=== PATIENT | female | born 1995 | race Caucasian/White ===

== ENCOUNTER 2016-04-13 02:23 | Inpatient (IN) | payer MEDICAID ==
[~2016-04-13] VITALS: Ht 172.7 cm; Wt 85.0 kg
[2016-04-13] VITALS (50 sets, daily range): BP systolic 71–145; BP diastolic 25–118; PULSE 72–132; RESP 11–24; TEMP 91.6; Ht 172.7 cm; Wt 85.0 kg
[2016-04-13] MEDS ORDERED: PROPOFOL 100 ML ONE (02:31)
[2016-04-13] MEDS ORDERED: PROPOFOL 100 ML IV STA (02:46)
[2016-04-13] MEDS ORDERED: VECURONIUM 100 MG in DEXTROSE 5% 100 ML IV ONE (02:46)
[2016-04-13] MEDS ORDERED: SODIUM CHLORIDE 0.9% 500 ML BAG IV* STA (02:46)
[2016-04-13] MEDS ORDERED: SUCCINYLCHOLINE CHLORIDE 100 MG/5 ML SYG IV ONE (03:00)
[2016-04-13 03:02] LABS: AADO2 Arterial 277.6 mmHg (7.0-24.0); Allen Test ACCEPTAB; Arterial Base Excess -18.8 mmol/L (-3.0-3); Arterial COHb 1.7 % (0.0-3.0); Arterial Fraction of Oxyhgb 97.6 % (93.0-99.0); Arterial HCO3 9.9 mmol/L (22.0-26.0); Arterial MetHb 0.4 % (0.0-1.5); Arterial Total Hemglobin 13.5 g/dl (12.0-18.0); MODE VENT - A/C
[2016-04-13 03:34] LABS: HEMATOCRIT 39.9 % (37.0-47.0); HEMOGLOBIN 13.1 g/dl (12.0-16.0); MEAN CORPUSCULAR HEMOGLOBIN 29.4 pg (29.0-33.0); MEAN CORPUSCULAR VOLUME 89.2 fl (82.0-101.0); MEAN PLATELET VOLUME 10.1 fl (7.4-10.4); PLATELET COUNT 190 10^3/UL (140-440); RED BLOOD COUNT 4.47 10^6/ul (4.20-5.40); RED CELL DISTRIBUTION WIDTH 13.4 % (11.5-14.5); UNCORRECTED WBC 7.9 10^3/ul (4.8-10.8); WHITE BLOOD COUNT 7.9 10^3/ul (4.8-10.8)
[2016-04-13 03:38] LABS: INR 1.21; PROTIME 15.4 Sec (12.2-14.2); PT RATIO 1.2
--- NOTE | 2016-04-13 03:38 | RADRPT ---
PROCEDURE: CHEST - 1 VIEW CLINICAL INDICATION: 20-year-old female for line placement and hypothermia. TECHNIQUE: A single frontal upright view of the chest was performed. The images were reviewed on a PACS workstation. COMPARISON: None. FINDINGS: There is a left subclavian central line with the tip in the distal superior vena cava region. There is an endotracheal tube identified with the tip in the right mainstem bronchus approximately 1.8 cm below the bro. The cardiomediastinal silhouette has a normal appearance. There is diffuse patch y right upper lobe infiltrate. The pulmonary vascularity is within normal limits. There is no eviden ce for pneumothorax or pneumomediastinum. The osseous structures are intact. IMPRESSION: 1. Endotracheal tube with the tip in the right mainstem bronchus approximately 1.8 cm below the car flora. 2. Left subclavian central line with the tip in the distal superior vena cava. 3. Diffuse right upper lobe infiltrate. CRITICAL RESULTS: A call report was made to [facility] ER Dr. Lopez on April 13, 2016 at 03:35 a. m. .Ricky Pressley MD, MD Date Time Electronically viewed and signed by .Ricky Pressley MD, on 04/13/2016 03:38 .M/
[2016-04-13 03:39] LABS: CHLORIDE 96 mmol/L (97-110); SODIUM 136 mmol/L (135-144)
[2016-04-13 03:40] LABS: CONDITION 1; LH ANALYZER COMMENTS 1; PARTIAL THROMBOPLASTIN TIME 35.7 Sec (25.0-35.0); SUSPECT 1
[2016-04-13 03:41] LABS: ANION GAP 26 (8-16); CARBON DIOXIDE 17 mmol/L (21-31); CREATININE 0.83 mg/dl (0.44-1.00)
[2016-04-13 03:42] LABS: ALANINE AMINOTRANSFERASE 113 IU/L (13-69); ALBUMIN/GLOBULIN RATIO 1.33; ALKALINE PHOSPHATASE 66 IU/L (42-121); ASPARTATE AMINO TRANSFERASE 111 IU/L (15-46); BILIRUBIN,INDIRECT 0.5 mg/dl (0-1.1); BILIRUBIN,TOTAL 0.5 mg/dl (0.2-1.3); BLOOD UREA NITROGEN 3 mg/dl (7-20); CALCIUM 8.5 mg/dl (8.4-10.2); PHOSPHORUS 7.5 mg/dl (2.5-4.9)
[2016-04-13 03:43] LABS: MAGNESIUM 2.5 mg/dl (1.7-2.5)
[2016-04-13 03:44] LABS: POTASSIUM 2.6 mmol/L (3.5-5.1)
[2016-04-13 03:45] LABS: ACETAMINOPHEN < 10.0 ug/ml (10.0-30.0); SALICYLATE < 1.0 mg/dl (5.0-30.0)
[2016-04-13 03:46] LABS: GLUCOSE 430 mg/dl (70-220)
[2016-04-13 03:47] LABS: ADD UMIC YES; URINE BILIRUBIN (Dip) NEGATIVE (NEGATIVE); URINE BLOOD (Dip) NEGATIVE (NEGATIVE); URINE COLOR LT. YELLOW (YELLOW); URINE GLUCOSE (Dip) NEGATIVE (NEGATIVE); URINE KETONES (Dip) NEGATIVE (NEGATIVE); URINE LEUKOCYTE ESTERASE (Dip) 1+ (NEGATIVE); URINE NITRITE (Dip) NEGATIVE (NEGATIVE); URINE TOTAL PROTEIN (Dip) NEGATIVE (NEGATIVE); URINE UROBILINOGEN (Dip) 0.2 E.U./dL (0.1-1.0)
[2016-04-13 03:58] LABS: BACTERIA,URINE FEW; SQUAMOUS EPITHELIAL CELL,UR FEW; URINE RBCS 0-2 /HPF (0)
[2016-04-13 04:02] LABS: BENZODIAZEPINES Negative (NEGATIVE)
[2016-04-13 04:04] LABS: CANNABINOIDS Negative (NEGATIVE)
--- NOTE | 2016-04-13 04:07 | RADRPT ---
PROCEDURE: CT BRAIN WITHOUT CONTRAST CLINICAL INDICATION: 20-year-old female with altered level of consciousness. TECHNIQUE: The study was performed utilizing a GE [employer] VCT 64-slice CT scanner. Direct axia l sections were obtained from the foramen magnum to the vertex without the use of intravenous contra st material. Sagittal and coronal reformations were obtained. Automated exposure control and iterat ivonne reconstruction techniques were utilized for this examination. The images were viewed on a PACS workstation. CTD/vol = 45.0 mGy; Total Exam DLP = 720.2 mGy-cm. COMPARISON: None. FINDINGS: The ventricles have a normal size, shape and position. There is no evidence for mass effect or midl ine shift. There are no intracranial areas of abnormal attenuation. There is no evidence for acute intra or extra-axial blood. The bony calvarium is intact. The partially visualized paranasal sinuse s and mastoid air cells are without significant abnormal soft tissue. . There is fluid within the n asopharynx. IMPRESSION: 1. The intracranial contents are unremarkable on this noncontrast CT scan of the brain. 2. Fluid within the nasopharynx. .Ricky Pressley MD, Date Time Electronically viewed and signed by .Ricky Pressley MD, on 04/13/2016 04:07 .Katy
[2016-04-13 04:12] LABS: BARBITURATES Negative (NEGATIVE); COCAINE Negative (NEGATIVE); OPIATES Negative (NEGATIVE)
[2016-04-13 04:12] LABS: TROPONIN-I < 0.012 ng/ml (0.00-0.12)
[2016-04-13 04:19] LABS: LYMPHOCYTES # 6.6 10^3/ul (0.8-2.9); MONOCYTE # 0.4 10^3/ul (0.3-0.9); NEUTROPHIL # 0.9 10^3/ul (1.6-7.5); PLATELET ESTIMATE PLT APPEAR ADEQUATE
[2016-04-13] MEDS ORDERED: POTASSIUM CHLORIDE 250 ML IVPB ONE (05:00)
--- NOTE | 2016-04-13 05:38 | ERA ---
ER Documentation Chief Complaint Date/Time DATE: 04/13/16 TIME: 05:32 Chief Complaint BIBA, Cardiac Arrest from a bar HPI This is a 20-year-old female brought in by EMS for cardiac arrest from a local bar. Currently she is down and bystanders started CPR. EMS got there and saw the patient was in arrest. They started compressions. Patient was shocked twice in the field for V. fib. Brought here with a pulse. Upon arrival patient was immediately intubated. Central line placed. Hypothermic protocol initiated. ROS All systems reviewed and are negative except as per history of present illness. Allergies Allergies: Coded Allergies: No Known Drug Allergy (Verified Allergy, Unknown, 04/10/09) PMhx/Soc Hx Alcohol Use: Yes Hx Tobacco Use: Yes Smoking Status: Current every day smoker Physical Exam Vitals Vital Signs Date Time Temp Pulse Resp B/P Pulse Ox O2 Delivery O2 Flow Rate FiO2 04/13/16 04:10 108 16 100 50 04/13/16 03:10 50 04/13/16 02:35 127 16 100 100 04/13/16 02:33 96.0 163 23 142/116 91 04/13/16 02:25 96.0 165 139/93 91 Ambu Bag 15.0 Physical Exam Const: [] Head: Atraumatic Eyes: Normal Conjunctiva ENT: Normal External Ears, Nose and Mouth. Neck: Full range of motion..~ No meningismus. Resp: Clear to auscultation bilaterally Cardio: Regular rate and rhythm, no murmurs Abd: Soft, non tender, non distended. Normal bowel sounds Skin: No petechiae or rashes Back: No midline or flank tenderness Ext: No cyanosis, or edema Neur: obtunded Psych: Normal Mood and Affect Result Diagram: 04/13/16 0230 04/13/16 0230 Results 24 hrs Laboratory Tests Test 04/13/16 02:30 04/13/16 02:34 04/13/16 02:46 04/13/16 03:26 Acetaminophen Level < 10.0ug/ml Activated Partial Thromboplast Time 35.7Sec Alanine Aminotransferase (ALT/SGPT) 113IU/L Albumin 4.0g/dl Albumin/Globulin Ratio 1.33 Alkaline Phosphatase 66IU/L Anion Gap 26 Aspartate Amino Transf (AST/SGOT) 111IU/L Blood Urea Nitrogen 3mg/dl Calcium Level 8.5mg/dl Carbon Dioxide Level 17mmol/L Chloride Level 96mmol/L Creatinine 0.83mg/dl Direct Bilirubin 0.00mg/dl Ethyl Alcohol Level 63.0mg/dl Globulin 3.00g/dl Glucose Level 430mg/dl Hematocrit 39.9% Hemoglobin 13.1g/dl INR International Normalized Ratio 1.21 Indirect Bilirubin 0.5mg/dl Lactic Acid Level 11.4mmol/L Lymphocytes # 6.610^3/ul Lymphocytes % 84.0% Magnesium Level 2.5mg/dl Mean Corpuscular Hemoglobin 29.4pg Mean Corpuscular Hemoglobin Concent 33.0g/dl Mean Corpuscular Volume 89.2fl Mean Platelet Volume 10.1fl Monocytes # 0.410^3/ul Monocytes % 5.0% Neutrophils # 0.910^3/ul Neutrophils % 11.0% Phosphorus Level 7.5mg/dl Platelet Count 74547^3/UL Platelet Estimate PLT APPEAR ADEQUATE Potassium Level 2.6mmol/L Prothrombin Time 15.4Sec Prothrombin Time Ratio 1.2 Red Blood Count 4.4710^6/ul Red Cell Distribution Width 13.4% Salicylates Level < 1.0mg/dl Sodium Level 136mmol/L Total Bilirubin 0.5mg/dl Total Protein 7.0g/dl Troponin I < 0.012ng/ml White Blood Count 7.910^3/ul Urine Amphetamines Screen POSITIVE Urine Bacteria FEW Urine Barbiturates Negative Urine Benzodiazepines Screen Negative Urine Bilirubin NEGATIVE Urine Cannabinoids Negative Urine Clarity CLEAR Urine Cocaine Screen Negative Urine Color LT. YELLOW Urine Glucose NEGATIVE% Urine Hemoglobin NEGATIVE Urine Ketones NEGATIVE Urine Leukocyte Esterase 1+ Urine Microscopic RBC 0-2/HPF Urine Microscopic WBC 2-5/HPF Urine Nitrite NEGATIVE Urine Opiates Screen Negative Urine Specific [place] <=1.005 Urine Squamous Epithelial Cells FEW Urine Total Protein NEGATIVE Urine Urobilinogen 0.2 E.U./dL Urine pH 5.5 Arterial Blood HCO3 9.9mmol/L Arterial Blood Base Excess -18.8mmol/L Arterial Blood Oxygen Saturation 99.7mmHG Colton Test ACCEPTAB Arterial Blood Gas Puncture Site Right Radial Arterial Blood Carboxyhemoglobin 1.7% Arterial Blood Date Drawn 04/13/2016 2:49:57 AM Arterial Blood Methemoglobin 0.4% Arterial Blood pCO2 (Temp correct) 33.2mmhg Arterial Blood pH (Temp corrected) 7.093 Arterial Blood pO2 (Temp corrected) 402.2mmHG Blood Gas A-a O2 Differential 277.6mmHg Blood Gas Actual Respiration Rate 16 Blood Gas Critical Value Read Back Marlena LIRIANO MD Blood Gas Low PEEP Setting 5.0cmH2O Blood Gas Modality VENT - A/C Blood Gas Notified Time 04/13/2016 3:01:45 AM Blood Gas Notified Whom MG Blood Gas Respiration Rate 16.0 Blood Gas Specimen Source Blood arterial Blood Gas Temperature 37.0C Blood Gas Tidal Volume 550.0mL FiO2 100.0% Oxyhemoglobin Percent 97.6% Total Hemoglobin 13.5g/dl Bedside Glucose 180mg/dL Current Medications Medications (Trade) Dose Ordered Sig/Figueroa Route PRN Reason Start Time Stop Time Status Last Admin Dose Admin Sodium Chloride 500 ml 500 ml ONCE STAT IV* 04/13/16 02:46 04/13/16 02:51 DC 04/13/16 03:19 Propofol 100 ml @ 2.7 mls/hr ONCE STAT IV 04/13/16 02:46 04/14/16 15:48 04/13/16 02:56 Vecuronium [place]/Dextrose (Norcuron/D5W) 100 ml @ 5.4 mls/hr [id number] ONCE IV 04/13/16 02:46 04/13/16 21:17 04/13/16 03:18 Succinylcholine Chloride 100 mg 100 mg ONCE ONCE IV 04/13/16 03:00 04/13/16 03:01 DC Potassium Chloride (KCl 40 MEQ/250 ML NS) 250 ml @ 62.5 mls/hr ONCE ONCE IVPB 04/13/16 05:00 04/13/16 08:59 UNV Procedures/MDM Chest X-ray 1V Interpreted by me: Soft Tissue: No acute abnormalities Bones: No acute abnormalities Mediastinum/Cardiac Silhouette/Lungs: ET tube and central line in good position EKG: Rate/Rhythm: Sinus tachycardia 118 QRS, ST, T-waves: [No changes consistent w/ acute ischemia] Impression: [No evidence of ischemia or arrhythmia] CT of the brain is negative Medical decision making: This is an unfortunate 20 female suffered a cardiac arrest. She has been initiated on hypothermia protocol. She is on amiodarone. At this point is clinically stable. She will be admitted to intensive care unit to hospitalist. Family is at the bedside and prognosis is guarded until further notice Critical Care: Time: 65 minutes Treatments/Evaluations: Close monitoring and treatment of unstable vital signs, cardiorespiratory, and neurologic status, while maintaining tight balance of fluid, respiratory, and cardiac interventions. Departure Diagnosis: Primary Impression: Cardiac arrest Condition: Critical MAXWELL LIRIANO Apr 13, 2016 05:45
[2016-04-13] MEDS ORDERED: AMIODARONE 900 MG in DEXTROSE 5% 482 ML IV SCH (06:00)
[2016-04-13] MEDS ORDERED: AMIODARONE 150MG/D5W BOLUS 100 ML IV ONE (06:00)
[2016-04-13] MEDS ORDERED: ACETAMINOPHEN 650MG/20.3ML CUP PO PRN (06:30)
[2016-04-13] MEDS ORDERED: ONDANSETRON 4 MG INJ IV PRN (06:30)
[2016-04-13] MEDS ORDERED: INSULIN REGULAR, HUMAN 100 UNIT in SOD CHLORIDE 0.9% 99 ML IV SCH ×2 (06:30)
[2016-04-13] MEDS ORDERED: DEXTROSE 50% 50 ML SYRINGE IV PRN (06:30)
[2016-04-13] MEDS ORDERED: MEPERIDINE 25 MG INJ IV PRN ×2 (06:30)
[2016-04-13] MEDS ORDERED: ACETAMINOPHEN 650 MG SUPP PR PRN ×2 (06:30)
[2016-04-13] MEDS ORDERED: VANCOMYCIN IV PER PHARMACY XX SCH (06:30)
[2016-04-13] MEDS ORDERED: IPRATROPIUM (HFA) 12.9 GM INHALER INH PRN (06:30)
[2016-04-13] MEDS ORDERED: ALBUTEROL HFA 8 GM INHALER INH PRN (06:30)
[2016-04-13] MEDS: ACCUCHECK XX SCH ×16 (07:03→22:38)
[2016-04-13 07:27] LABS: AADO2 Arterial 258.9 mmHg (7.0-24.0); Allen Test ACCEPTAB; Arterial COHb 0.3 % (0.0-3.0); Arterial Fraction of Oxyhgb 96.2 % (93.0-99.0); Arterial HCO3 20.2 mmol/L (22.0-26.0); Arterial MetHb 0.1 % (0.0-1.5); Arterial Total Hemglobin 14.5 g/dl (12.0-18.0); MODE VENT - AC
--- NOTE | 2016-04-13 08:19 | HP ---
DATE OF ADMISSION: 04/13/2016 TIME SEEN: 5:30 a.m. CHIEF COMPLAINT: Cardiac arrest. HISTORY OF PRESENT ILLNESS: The patient is a 20-year-old female with unknown past medical history w fabrizio was brought in by EMS from a local bar for cardiac arrest. The patient was found down and 911 wa s called. When EMS arrived, she had no pulse. Her rhythm was ventricular fibrillation for which sh rufino was shocked, and after her pulse was restored, she was brought to the ER while being bagged. The patient was immediately intubated in the ER. She had an irregular heart rate when she initially cam e documented to be as high as 165. Urine toxicology screen was positive for amphetamine. As jazzy manzano, the patient is currently intubated and has already been started on hypothermia protocol, and tremaine joy is awaiting admission to the ICU. Laboratory values were notable for a potassium of 2.6, initial glucose of 430, and lactic acid 11.4, AST 111, ALT 113. A head CT was unremarkable for any intracra nial abnormalities, and a chest x-ray shows diffuse patchy right upper lobe infiltrate. REVIEW OF SYSTEMS: Unable to assess. PAST MEDICAL HISTORY: Unknown. PAST SURGICAL HISTORY: Unknown. SOCIAL HISTORY: Likely methamphetamine user. ALLERGIES: NO KNOWN DRUG ALLERGIES. HOME MEDICATIONS: None. PHYSICAL EXAMINATION: VITAL SIGNS: Blood pressure 113/84, heart rate 99 and irregular, respiratory rate 16, temperature 9 1.6, oxygen saturation 100% on 50% FIO2. GENERAL: The patient intubated. Currently not responsive. HEENT: No obvious head deformity. Pupils very minimally reactive to light. CARDIOVASCULAR: Irregularly irregular. LUNGS: Good air movement. There are slight decreased breath sounds on the right side anteriorly. ABDOMEN: Soft, positive bowel sounds, nondistended. EXTREMITIES: No edema. NEUROLOGIC: The patient's pupils are minimally reactive to light, not responding to painful stimuli , and her gag reflex . LABORATORY: Pertinent positives as mentioned in the HPI. IMAGING: Chest x-ray and a brain CT as mentioned in the HPI. IMPRESSION: 1. Status post ventricular fibrillation, cardiac arrest, most likely secondary to methamphetamine o verdose. 2. Ventilator-dependent respiratory failure, secondary to above. 3. Severe lactic acidosis. 4. Hypokalemia. 5. Hyperglycemia. 6. Elevated transaminases. PLAN: Admit to ICU. Will continue ventilator support. Continue hypothermia protocol. She will be placed on antibiotic. Will place a pulmonary and cardiology consult. We will trend her lactic aci d as well as troponin. We will obtain a 2-D echo. Correct electrolytes as needed. A neurology con sult and add additional imaging as needed. For her hyperglycemia, I will start her on an insulin drip for now. Further workup and management per clinical course. Total critical time spent is about 40 minutes. Dictated By: MAXWELL MAYES/HARINDER Conf#: [id number] DID#: [id number]
[2016-04-13] MEDS: SOD CHLORIDE 0.9% 1,000 ML IV SCH ×3 (08:46→19:54)
[2016-04-13] MEDS ORDERED: CEFEPIME 1GM/50 ML (PMX) 50 ML IVPB SCH (09:00)
[2016-04-13 09:17] LABS: HEMATOCRIT 40.2 % (37.0-47.0); HEMOGLOBIN 13.6 g/dl (12.0-16.0); MEAN CORPUSCULAR HEMOGLOBIN 29.6 pg (29.0-33.0); MEAN CORPUSCULAR HGB CONC 33.8 g/dl (32.0-37.0); MEAN CORPUSCULAR VOLUME 87.4 fl (82.0-101.0); MEAN PLATELET VOLUME 9.2 fl (7.4-10.4); PLATELET COUNT 300 10^3/UL (140-440); RED CELL DISTRIBUTION WIDTH 13.4 % (11.5-14.5); UNCORRECTED WBC 18.8 10^3/ul (4.8-10.8); WHITE BLOOD COUNT 18.8 10^3/ul (4.8-10.8)
[2016-04-13 09:20] LABS: CONDITION 1; LH ANALYZER COMMENTS 1; SUSPECT 1
[2016-04-13] MEDS: HEPARIN 5,000 UNIT/0.5 ML SYG SC SCH ×2 (09:21→20:52)
[2016-04-13 09:27] LABS: ALBUMIN 3.6 g/dl (3.3-4.9); INR 1.17; PT RATIO 1.2
[2016-04-13 09:28] LABS: PARTIAL THROMBOPLASTIN TIME 29.7 Sec (25.0-35.0)
[2016-04-13 09:29] LABS: CREATININE 0.51 mg/dl (0.44-1.00)
[2016-04-13 09:30] LABS: ALBUMIN/GLOBULIN RATIO 1.2; BILIRUBIN,INDIRECT 0.5 mg/dl (0-1.1); BILIRUBIN,TOTAL 0.5 mg/dl (0.2-1.3); CALCIUM 7.5 mg/dl (8.4-10.2); TOTAL PROTEIN 6.6 g/dl (6.1-8.1)
[2016-04-13] MEDS ORDERED: VANCOMYCIN 2 GM in SOD CHLORIDE 0.9% 500 ML IVPB SCH (09:30)
[2016-04-13 10:02] LABS: TROPONIN-I 0.952 ng/ml (0.00-0.12)
[2016-04-13 10:57] LABS: BASOPHIL # 0.2 10^3/ul (0.0-0.1); LYMPHOCYTES # 0.9 10^3/ul (0.8-2.9); MONOCYTE # 0.9 10^3/ul (0.3-0.9); NEUTROPHIL # 13.7 10^3/ul (1.6-7.5)
--- NOTE | 2016-04-13 12:12 | CONS ---
DATE OF ADMISSION: 04/13/2016 DATE OF CONSULTATION: 04/13/2016 TYPE OF CONSULTATION: Pulmonary. REASON FOR CONSULTATION: Ventilator management. Thank you, Dr. Calle, for this consultation. HISTORY OF PRESENT ILLNESS: This is a 20-year-old lady with significant past medical history, found down at a local bar unresponsive. Upon arrival of EMS, the patient was pulseless and in ventricula r fibrillation. She required defibrillation and was brought to the emergency room and subsequently emergently intubated, placed on mechanical ventilation and hypothermia protocol. Initial urine toxi cology was positive for amphetamines. The patient remains intubated and sedated, paralyzed at [facility]. Few further details are available. PAST MEDICAL HISTORY: As above. MEDICATIONS: Per chart. ALLERGIES: None known. SOCIAL HISTORY: Nonsmoker, no alcohol, history of drug use unknown. Currently positive for methamp hetamines. PHYSICAL EXAMINATION: GENERAL: Well-nourished, well-developed lady, intubated on mechanical ventilation, appears comforta ble at rest, no acute distress. VITAL SIGNS: Currently afebrile, temperature is 91, pulse is 117, blood pressure 124/70, O2 saturat ion 96%, FIO2 of 50%. NECK: Supple. No JVD or lymphadenopathy. CARDIAC: S1, S2, no added sounds or murmurs. CHEST: Diminished air entry bilaterally. ABDOMEN: Soft, nontender. No guarding or rebound. EXTREMITIES: No cyanosis, clubbing, edema. NEUROLOGIC: Unable to assess. LABORATORY DATA: White count 18.8, hemoglobin 13.6, platelets of 300. BUN 7, creatinine 0.51. Tro ponin elevated. ABG: pH 7.43, pCO2 of 29, pO2 of 68. INR was 1.17. DIAGNOSTIC DATA: Chest x-ray was reviewed, shows infiltrate right upper lobe. CT of the brain was unremarkable. IMPRESSION AND PLAN: 1. Cardiopulmonary arrest. 2. Ventricular fibrillation. 3. Positive methamphetamines. 4. Probable aspiration pneumonia. 5. 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 The patient will require: 1. Continued mechanical ventilation. 2. Broad-spectrum antibiotics. 3. Cardiology evaluation. 4. Glycemic management. 5. DVT and GI prophylaxis. Dictated By: SHELLEY DAI/HARINDER Conf#: [id number] [facility]#: [id number]
--- NOTE | 2016-04-13 12:44 | CONS ---
Date/Time of Note Date/Time of Note DATE: 04/13/16 TIME: 12:39 Assessment/Plan Assessment/Plan Additional Assessment/Plan Cardiac arrest Ventricular fibrillation Methamphetamine use Elevated troponins -Patient currently on hypothermia protocol and is sedated and intubated. Would continue amiodarone. Maintain potassium above 4.0 and magnesium above 2.0. Troponins mildly elevated, likely secondary to cardiac arrest and treatment. Would obtain serial enzymes and total trending down, check echocardiogram. Consultation Date/Type/Reason Admit Date/Time Apr 13, 2016 at 06:25 Type of Consultation: cv Reason for Consultation Cardiac arrest Hx of Present Illness This is a 20-year-old female with no known significant past medical history who was found unresponsive at a bar. CPR was initiated, paramedics arrived, patient in ventricular fibrillation. ACLS protocol with epinephrine and defibrillation and patient had return of spontaneous circulation. Patient brought to the emergency room, started on amiodarone and brought to the ICU. Currently sedated and undergoing hypothermia protocol. As per the mother at bedside, there has been no past medical history. She has been using drugs over the past year. She has a 7-year-old daughter. Unable to be performed at the current time given patient sedated and intubated Past Medical History Medical History: no pertinent history Past Surgical History Past Surgical Hx: no surgical history Family History Significant Family History: no pertinent family hx Social History Alcohol Use: other (yes) Smoking Status: Current every day smoker Drug Use: other (amphetamines) Exam/Review of Systems Vital Signs Vitals Vital Signs Date Time Temp Pulse Resp B/P Pulse Ox O2 Delivery O2 Flow Rate FiO2 04/13/16 12:00 91.4 118/86 100 Mechanical Ventilator 04/13/16 11:30 121 16 04/13/16 08:00 50 04/13/16 02:25 15.0 Exam Sedated and intubated Head: normocephalic ENMT: intubated Respiratory: other (course breath sounds bilaterally, no wheezing) Cardiovascular: other (S1-S2 heard), regular rate and rhythm Gastrointestinal: bowel sounds, other (no distention), soft Extremities: other (no edema) Results Result Diagram: 04/13/16 0846 04/13/16 0846 Results 24 hrs Laboratory Tests Test 04/13/16 02:30 04/13/16 02:34 04/13/16 02:46 04/13/16 03:26 Acetaminophen Level < 10.0 L Activated Partial Thromboplast Time 35.7 H Alanine Aminotransferase (ALT/SGPT) 113 H Albumin 4.0 Albumin/Globulin Ratio 1.33 Alkaline Phosphatase 66 Anion Gap 26 H Aspartate Amino Transf (AST/SGOT) 111 H Blood Urea Nitrogen 3 L Calcium Level 8.5 Carbon Dioxide Level 17 L Chloride Level 96 L Creatinine 0.83 Direct Bilirubin 0.00 Ethyl Alcohol Level 63.0 Globulin 3.00 Glucose Level 430 *H Hematocrit 39.9 Hemoglobin 13.1 INR International Normalized Ratio 1.21 Indirect Bilirubin 0.5 Lactic Acid Level 11.4 *H Lymphocytes # 6.6 H Lymphocytes % 84.0 H Magnesium Level 2.5 Mean Corpuscular Hemoglobin 29.4 Mean Corpuscular Hemoglobin Concent 33.0 Mean Corpuscular Volume 89.2 Mean Platelet Volume 10.1 Monocytes # 0.4 Monocytes % 5.0 Neutrophils # 0.9 L Neutrophils % 11.0 L Phosphorus Level 7.5 H Platelet Count 190 Platelet Estimate PLT APPEAR ADEQUATE Potassium Level 2.6 *L Prothrombin Time 15.4 H Prothrombin Time Ratio 1.2 Red Blood Count 4.47 Red Cell Distribution Width 13.4 Salicylates Level < 1.0 L Sodium Level 136 Total Bilirubin 0.5 Total Protein 7.0 Troponin I < 0.012 White Blood Count 7.9 Urine Amphetamines Screen POSITIVE Urine Bacteria FEW Urine Barbiturates Negative Urine Benzodiazepines Screen Negative Urine Bilirubin NEGATIVE Urine Cannabinoids Negative Urine Clarity CLEAR Urine Cocaine Screen Negative Urine Color LT. YELLOW Urine Glucose NEGATIVE Urine Hemoglobin NEGATIVE Urine Ketones NEGATIVE Urine Leukocyte Esterase 1+ H Urine Microscopic RBC 0-2 Urine Microscopic WBC 2-5 Urine Nitrite NEGATIVE Urine Opiates Screen Negative Urine Specific [place] <=1.005 L Urine Squamous Epithelial Cells FEW Urine Total Protein NEGATIVE Urine Urobilinogen 0.2 E.U./dL Urine pH 5.5 Arterial Blood HCO3 9.9 *L Arterial Blood Base Excess -18.8 L Arterial Blood Oxygen Saturation 99.7 H Colton Test ACCEPTAB Arterial Blood Gas Puncture Site Right Radial Arterial Blood Carboxyhemoglobin 1.7 Arterial Blood Date Drawn 04/13/2016 2:49:57 AM Arterial Blood Methemoglobin 0.4 Arterial Blood pCO2 (Temp correct) 33.2 L Arterial Blood pH (Temp corrected) 7.093 *L Arterial Blood pO2 (Temp corrected) 402.2 H Blood Gas A-a O2 Differential 277.6 H Blood Gas Actual Respiration Rate 16 Blood Gas Critical Value Read Back Marlena LIRIANO MD Blood Gas Low PEEP Setting 5.0 Blood Gas Modality VENT - A/C Blood Gas Notified Time 04/13/2016 3:01:45 AM Blood Gas Notified Whom MG Blood Gas Respiration Rate 16.0 Blood Gas Specimen Source Blood arterial Blood Gas Temperature 37.0 Blood Gas Tidal Volume 550.0 FiO2 100.0 Oxyhemoglobin Percent 97.6 Total Hemoglobin 13.5 Bedside Glucose 180 Test 04/13/16 05:36 04/13/16 06:20 04/13/16 06:59 04/13/16 08:30 Lactic Acid Level 5.5 *H Arterial Blood HCO3 20.2 L Arterial Blood Base Excess -4.0 L Arterial Blood Oxygen Saturation 96.6 Colton Test ACCEPTAB Arterial Blood Gas Puncture Site Left Radial Arterial Blood Carboxyhemoglobin 0.3 Arterial Blood Date Drawn 04/13/2016 7:15:00 AM Arterial Blood Methemoglobin 0.1 Arterial Blood pCO2 (Temp correct) 29.4 L Arterial Blood pH (Temp corrected) 7.438 Arterial Blood pO2 (Temp corrected) 68.9 L Blood Gas A-a O2 Differential 258.9 H Blood Gas Actual Respiration Rate 16 Blood Gas Low PEEP Setting 5.0 Blood Gas Modality VENT - AC Blood Gas Notified Time 04/13/2016 7:27:00 AM Blood Gas Notified Whom JLD Blood Gas Respiration Rate 16.0 Blood Gas Specimen Source Blood arterial Blood Gas Temperature 33.3 Blood Gas Tidal Volume 550.0 FiO2 50.0 Oxyhemoglobin Percent 96.2 Total Hemoglobin 14.5 Bedside Glucose 103 146 Test 04/13/16 08:46 04/13/16 09:50 04/13/16 10:56 04/13/16 12:37 Activated Partial Thromboplast Time 29.7 Alanine Aminotransferase (ALT/SGPT) 161 H Albumin 3.6 Albumin/Globulin Ratio 1.20 Alkaline Phosphatase 81 Amylase Level 328 H Anion Gap 17 #H Aspartate Amino Transf (AST/SGOT) 244 H Band Neutrophils % 16.0 H Basophils # 0.2 H Basophils % 1.0 Blood Urea Nitrogen 7 Calcium Level 7.5 L Carbon Dioxide Level 21 Chloride Level 105 Creatinine 0.51 Differential Comment MANUAL DIFF Direct Bilirubin 0.00 Eosinophils # Eosinophils % Globulin 3.00 Glucose Level 151 # Hematocrit 40.2 Hemoglobin 13.6 INR International Normalized Ratio 1.17 Indirect Bilirubin 0.5 Lactic Acid Level 1.8 Lipase 87 Lymphocytes # 0.9 Lymphocytes % 5.0 L Mean Corpuscular Hemoglobin 29.6 Mean Corpuscular Hemoglobin Concent 33.8 Mean Corpuscular Volume 87.4 Mean Platelet Volume 9.2 Monocytes # 0.9 Monocytes % 5.0 Neutrophils # 13.7 H Neutrophils % 73.0 Nucleated Red Blood Cells # Nucleated Red Blood Cells % 1.0 H Platelet Count 300 # Potassium Level 4.0 Prothrombin Time 15.0 H Prothrombin Time Ratio 1.2 Red Blood Count 4.60 Red Cell Distribution Width 13.4 Sodium Level 139 Total Bilirubin 0.5 Total Protein 6.6 Troponin I 0.952 *H White Blood Count 18.8 #H Bedside Glucose 121 104 102 Medications Medications Current Medications Vecuronium Conception 100 mg/ Dextrose 100 ml @ 5.1 mls/hr [id number] ONCE IV Last administered on 04/13/16 03:18; Admin Dose 5.4 MLS/HR; Start 04/13/16 at 02:46 ; Stop 04/13/16 at 21:17 Amiodarone HCl/ Dextrose (Cordarone Iv/ D5W) 500 ml @ 0 mls/hr Q0M IV Last administered on 04/13/16 06:41; Admin Dose 33.4 MLS/HR; Start 04/13/16 at 06:00 ; Stop 04/14/16 at 05:59 Ondansetron HCl (Zofran Inj) 4 mg Q6H PRN IV NAUSEA AND/OR VOMITING; Start at 06:30 Acetaminophen (Tylenol Tab) 650 mg Q6H PRN PO PAIN LEVEL 1-3 OR FEVER; Start at 06:30 Acetaminophen (Tylenol Supp) 650 mg Q4H PRN DE PAIN LEVEL 1-3 OR FEVER; Start 04/13/16 at 06:30 Pantoprazole (Protonix Iv) 40 mg DAILY@06 IV ; Start 04/14/16 at 06:00 Heparin Sodium (Porcine) (Heparin (5000 Units/0.5 ml)) 5,000 unit Q12 SC Last administered on 04/13/16 09:21; Admin Dose 5,000 UNIT; Start 04/13/16 at 09:00 Diagnostic Test (Pha) (Accucheck) 1 ea Q1H XX Last administered on 04/13/16 10 :58; Admin Dose 1 EA; Start 04/13/16 at 06:30 Dextrose (D50w Syringe) 25 ml Q15M PRN IV Till BS 80 mg/dL or above x2; Start 04/13/16 at 06:30 Dextrose 50 ml 50 ml Q15M PRN IV Till BS 80 mg/dL or above x2; Start 04/13/16 at 06:30 Sodium Chloride (NS) 1,000 ml @ 100 mls/hr Q10H IV Last administered on 08:46; Admin Dose 100 MLS/HR; Start 04/13/16 at 06:20 Acetaminophen (Tylenol Supp) 650 mg Q4H PRN DE TEMP > 37C; Start 04/13/16 at 06 :30 Acetaminophen (Tylenol Liquid) 650 mg Q4H PRN PO TEMP > 37C; Start 04/13/16 at 06:30 Acetaminophen (Tylenol Supp) 500 mg Q6H DE ; Start 04/14/16 at 06:30 Meperidine HCl (Demerol) 12.5 mg Q4H PRN IV POST OPERATIVE SHIVERING; Start at 06:30 Meperidine HCl (Demerol) 25 mg Q4H PRN IV POST OPERATIVE SHIVERING; Start 04/13 at 06:30 Eye Lubricant (Akwa Oint) 1 applic Q6 BOTH EYES ; Start 04/13/16 at 12:00 Eye Lubricant 2 drop 2 drop Q6 BOTH EYES ; Start 04/13/16 at 12:00 Cefepime HCl 50 ml @ 100 mls/hr Q12 IVPB Last administered on 04/13/16 10:53 ; Admin Dose 100 MLS/HR; Start 04/13/16 at 09:00 Vancomycin HCl/ Sodium Chloride (Vancocin/NS) 500 ml @ 125 mls/hr NOW IVPB Last administered on 04/13/16 09:36; Admin Dose 125 MLS/HR; Start 04/13/16 at 09:30; Stop 04/13/16 at 13:29 Procedures Procedures ECG done today at 11:58 AM demonstrates sinus tachycardia at 123 bpm, QRS 104 ms , nonspecific STT wave abnormalities Giorgio Knight DO Apr 13, 2016 12:44
[2016-04-13] MEDS: ARTIFICIAL TEARS 15 ML OPH BOTH EYES SCH ×2 (12:58→17:58)
[2016-04-13] MEDS: OCULAR LUBRICANT 3.5 GM OPH OINT BOTH EYES SCH ×2 (12:58→17:58)
--- NOTE | 2016-04-13 13:02 | PN ---
Date/Time of Note Date/Time of Note DATE: 04/13/16 TIME: 12:54 Assessment/Plan VTE Prophylaxis VTE Prophylaxis Intervention: SCD's Lines/Catheters IV Catheter Type (from Nrs): Central Line Central line still needed: Yes Urinary Cath still in place: Yes Reason Cath still needed: urinary retention Assessment/Plan Assessment/Plan 1. S/p Cardiopulmonary arrest, hypothermia protocol 2. Ventricular fibrillation, on amiodarone drip, follow up with cardiology 3. Right upper lobe pneumonia, likely aspiration, zosyn 4. Ventilator-dependent respiratory failure, follow up with pulmonology 5. Severe lactic acidosis from cardiac arrest and sepsis 6. Mildly elevated troponin, follow up with cardiology 7. Acute pancreatitis from cardiopulmonary arrest/ischemia, and ETOH, follow up with amylase/lipase 8. Elevated transaminases, shock related, ETOH, follow up with LFTs 9. Substance abuse 10. GI/DVT prophylaxis 11. Incomplete data Subjective 24 Hr Interval Summary Free Text/Dictation unresponsive on vent/sedated. Parents at bedside. Talked to staff. Exam/Review of Systems Vital Signs Vitals Vital Signs Date Time Temp Pulse Resp B/P Pulse Ox O2 Delivery O2 Flow Rate FiO2 04/13/16 12:00 120 04/13/16 12:00 91.4 118/86 100 Mechanical Ventilator 04/13/16 11:30 16 04/13/16 08:00 50 04/13/16 02:25 15.0 Exam Constitutional: other (sedated/on vent), well developed Head: atraumatic, normocephalic Eyes: EOMI, nl conjunctiva ENMT: intubated, mucosa pink and moist, nl external ears & nose, nl lips & teeth, nl nasal mucosa & septum Neck: supple Respiratory: crackles/rales (on right lung) Cardiovascular: nl pulses, regular rate and rhythm Gastrointestinal: nl liver, spleen, soft, No ascites, No bowel sounds, No distended, No firm, No hepatomegaly, No mass , No non-tender, No rebound or guarding, No splenomegaly, No surgical scars Musculoskeletal: nl extremities to inspection Extremities: normal pulses Neurological: unresponsive Skin: nl turgor, rash or lesions Lymph: nl lymph nodes Results Result Diagram: 04/13/16 0846 04/13/16 0846 Results 24 hrs Laboratory Tests Test 04/13/16 02:30 04/13/16 02:34 04/13/16 02:46 04/13/16 03:26 Acetaminophen Level < 10.0 L Activated Partial Thromboplast Time 35.7 H Alanine Aminotransferase (ALT/SGPT) 113 H Albumin 4.0 Albumin/Globulin Ratio 1.33 Alkaline Phosphatase 66 Anion Gap 26 H Aspartate Amino Transf (AST/SGOT) 111 H Blood Urea Nitrogen 3 L Calcium Level 8.5 Carbon Dioxide Level 17 L Chloride Level 96 L Creatinine 0.83 Direct Bilirubin 0.00 Ethyl Alcohol Level 63.0 Globulin 3.00 Glucose Level 430 *H Hematocrit 39.9 Hemoglobin 13.1 INR International Normalized Ratio 1.21 Indirect Bilirubin 0.5 Lactic Acid Level 11.4 *H Lymphocytes # 6.6 H Lymphocytes % 84.0 H Magnesium Level 2.5 Mean Corpuscular Hemoglobin 29.4 Mean Corpuscular Hemoglobin Concent 33.0 Mean Corpuscular Volume 89.2 Mean Platelet Volume 10.1 Monocytes # 0.4 Monocytes % 5.0 Neutrophils # 0.9 L Neutrophils % 11.0 L Phosphorus Level 7.5 H Platelet Count 190 Platelet Estimate PLT APPEAR ADEQUATE Potassium Level 2.6 *L Prothrombin Time 15.4 H Prothrombin Time Ratio 1.2 Red Blood Count 4.47 Red Cell Distribution Width 13.4 Salicylates Level < 1.0 L Sodium Level 136 Total Bilirubin 0.5 Total Protein 7.0 Troponin I < 0.012 White Blood Count 7.9 Urine Amphetamines Screen POSITIVE Urine Bacteria FEW Urine Barbiturates Negative Urine Benzodiazepines Screen Negative Urine Bilirubin NEGATIVE Urine Cannabinoids Negative Urine Clarity CLEAR Urine Cocaine Screen Negative Urine Color LT. YELLOW Urine Glucose NEGATIVE Urine Hemoglobin NEGATIVE Urine Ketones NEGATIVE Urine Leukocyte Esterase 1+ H Urine Microscopic RBC 0-2 Urine Microscopic WBC 2-5 Urine Nitrite NEGATIVE Urine Opiates Screen Negative Urine Specific Reagan <=1.005 L Urine Squamous Epithelial Cells FEW Urine Total Protein NEGATIVE Urine Urobilinogen 0.2 E.U./dL Urine pH 5.5 Arterial Blood HCO3 9.9 *L Arterial Blood Base Excess -18.8 L Arterial Blood Oxygen Saturation 99.7 H Colton Test ACCEPTAB Arterial Blood Gas Puncture Site Right Radial Arterial Blood Carboxyhemoglobin 1.7 Arterial Blood Date Drawn 04/13/2016 2:49:57 AM Arterial Blood Methemoglobin 0.4 Arterial Blood pCO2 (Temp correct) 33.2 L Arterial Blood pH (Temp corrected) 7.093 *L Arterial Blood pO2 (Temp corrected) 402.2 H Blood Gas A-a O2 Differential 277.6 H Blood Gas Actual Respiration Rate 16 Blood Gas Critical Value Read Back Marlena LIRIANO MD Blood Gas Low PEEP Setting 5.0 Blood Gas Modality VENT - A/C Blood Gas Notified Time 04/13/2016 3:01:45 AM Blood Gas Notified Whom MG Blood Gas Respiration Rate 16.0 Blood Gas Specimen Source Blood arterial Blood Gas Temperature 37.0 Blood Gas Tidal Volume 550.0 FiO2 100.0 Oxyhemoglobin Percent 97.6 Total Hemoglobin 13.5 Bedside Glucose 180 Test 04/13/16 05:36 04/13/16 06:20 04/13/16 06:59 04/13/16 08:30 Lactic Acid Level 5.5 *H Arterial Blood HCO3 20.2 L Arterial Blood Base Excess -4.0 L Arterial Blood Oxygen Saturation 96.6 Colton Test ACCEPTAB Arterial Blood Gas Puncture Site Left Radial Arterial Blood Carboxyhemoglobin 0.3 Arterial Blood Date Drawn 04/13/2016 7:15:00 AM Arterial Blood Methemoglobin 0.1 Arterial Blood pCO2 (Temp correct) 29.4 L Arterial Blood pH (Temp corrected) 7.438 Arterial Blood pO2 (Temp corrected) 68.9 L Blood Gas A-a O2 Differential 258.9 H Blood Gas Actual Respiration Rate 16 Blood Gas Low PEEP Setting 5.0 Blood Gas Modality VENT - AC Blood Gas Notified Time 04/13/2016 7:27:00 AM Blood Gas Notified Whom JLD Blood Gas Respiration Rate 16.0 Blood Gas Specimen Source Blood arterial Blood Gas Temperature 33.3 Blood Gas Tidal Volume 550.0 FiO2 50.0 Oxyhemoglobin Percent 96.2 Total Hemoglobin 14.5 Bedside Glucose 103 146 Test 04/13/16 08:46 04/13/16 09:50 04/13/16 10:56 04/13/16 12:37 Activated Partial Thromboplast Time 29.7 Alanine Aminotransferase (ALT/SGPT) 161 H Albumin 3.6 Albumin/Globulin Ratio 1.20 Alkaline Phosphatase 81 Amylase Level 328 H Anion Gap 17 #H Aspartate Amino Transf (AST/SGOT) 244 H Band Neutrophils % 16.0 H Basophils # 0.2 H Basophils % 1.0 Blood Urea Nitrogen 7 Calcium Level 7.5 L Carbon Dioxide Level 21 Chloride Level 105 Creatinine 0.51 Differential Comment MANUAL DIFF Direct Bilirubin 0.00 Eosinophils # Eosinophils % Globulin 3.00 Glucose Level 151 # Hematocrit 40.2 Hemoglobin 13.6 INR International Normalized Ratio 1.17 Indirect Bilirubin 0.5 Lactic Acid Level 1.8 Lipase 87 Lymphocytes # 0.9 Lymphocytes % 5.0 L Mean Corpuscular Hemoglobin 29.6 Mean Corpuscular Hemoglobin Concent 33.8 Mean Corpuscular Volume 87.4 Mean Platelet Volume 9.2 Monocytes # 0.9 Monocytes % 5.0 Neutrophils # 13.7 H Neutrophils % 73.0 Nucleated Red Blood Cells # Nucleated Red Blood Cells % 1.0 H Platelet Count 300 # Potassium Level 4.0 Prothrombin Time 15.0 H Prothrombin Time Ratio 1.2 Red Blood Count 4.60 Red Cell Distribution Width 13.4 Sodium Level 139 Total Bilirubin 0.5 Total Protein 6.6 Troponin I 0.952 *H White Blood Count 18.8 #H Bedside Glucose 121 104 102 Medications Medications Current Medications Vecuronium [place] 100 mg/ Dextrose 100 ml @ 5.1 mls/hr [id number] ONCE IV Last administered on 04/13/16 03:18; Admin Dose 5.4 MLS/HR; Start 04/13/16 at 02:46 ; Stop 04/13/16 at 21:17 Amiodarone HCl/ Dextrose (Cordarone Iv/ D5W) 500 ml @ 0 mls/hr Q0M IV Last administered on 04/13/16 06:41; Admin Dose 33.4 MLS/HR; Start 04/13/16 at 06:00 ; Stop 04/14/16 at 05:59 Ondansetron HCl (Zofran Inj) 4 mg Q6H PRN IV NAUSEA AND/OR VOMITING; Start at 06:30 Acetaminophen (Tylenol Tab) 650 mg Q6H PRN PO PAIN LEVEL 1-3 OR FEVER; Start at 06:30 Acetaminophen (Tylenol Supp) 650 mg Q4H PRN [place] PAIN LEVEL 1-3 OR FEVER; Start 04/13/16 at 06:30 Pantoprazole (Protonix Iv) 40 mg DAILY@06 IV ; Start 04/14/16 at 06:00 Heparin Sodium (Porcine) (Heparin (5000 Units/0.5 ml)) 5,000 unit Q12 SC Last administered on 04/13/16 09:21; Admin Dose 5,000 UNIT; Start 04/13/16 at 09:00 Diagnostic Test (Pha) (Accucheck) 1 ea Q1H XX Last administered on 04/13/16 12 :39; Admin Dose 1 EA; Start 04/13/16 at 06:30 Dextrose (D50w Syringe) 25 ml Q15M PRN IV Till BS 80 mg/dL or above x2; Start 04/13/16 at 06:30 Dextrose 50 ml 50 ml Q15M PRN IV Till BS 80 mg/dL or above x2; Start 04/13/16 at 06:30 Sodium Chloride (NS) 1,000 ml @ 100 mls/hr Q10H IV Last administered on 08:46; Admin Dose 100 MLS/HR; Start 04/13/16 at 06:20 Acetaminophen (Tylenol Supp) 650 mg Q4H PRN [place] TEMP > 37C; Start 04/13/16 at 06 :30 Acetaminophen (Tylenol Liquid) 650 mg Q4H PRN PO TEMP > 37C; Start 04/13/16 at 06:30 Acetaminophen (Tylenol Supp) 500 mg Q6H [place] ; Start 04/14/16 at 06:30 Meperidine HCl (Demerol) 12.5 mg Q4H PRN IV POST OPERATIVE SHIVERING; Start at 06:30 Meperidine HCl (Demerol) 25 mg Q4H PRN IV POST OPERATIVE SHIVERING; Start 04/13 at 06:30 Eye Lubricant (Akwa Oint) 1 applic Q6 BOTH EYES ; Start 04/13/16 at 12:00 Eye Lubricant 2 drop 2 drop Q6 BOTH EYES ; Start 04/13/16 at 12:00 Cefepime HCl 50 ml @ 100 mls/hr Q12 IVPB Last administered on 04/13/16 10:53 ; Admin Dose 100 MLS/HR; Start 04/13/16 at 09:00 Vancomycin HCl/ Sodium Chloride (Vancocin/NS) 500 ml @ 125 mls/hr NOW IVPB Last administered on 04/13/16 09:36; Admin Dose 125 MLS/HR; Start 04/13/16 at 09:30; Stop 04/13/16 at 13:29 COLLIN MANNING MD Apr 13, 2016 13:02
--- NOTE | 2016-04-13 14:09 | RADRPT ---
Echocardiogram Report Patient Name: ANGEL LEBRON Gender: Female Date: 1995 Study Date: 13-Apr-2016 Binder Stripper Machine: Maribel Mc [facility] Location: 117 Ref. Physician: GIORGIO KNIGHT Quality: Good Procedures: Transthoracic echocardiogram with complete 2D, M-Mode, and doppler examination. Indications: Cardiac Arrest. 2D/M Mode Doppler Measurement Value Normal Ranges Measurement Value Normal Ranges LVIDd 2D 5.1 3.5 - 5.6 cm AV Peak Damien 0.5 m/sec LVIDs 2D 4.7 2.1 - 4.1 cm AV Peak PG 1.0 mmHg FS 2D 8.1 % LVOT Peak Damien 0.4 m/sec LVPWd 2D 0.6 0.6 - 1.1 cm LVOT Peak PG 1.0 mmHg IVSd 2D 0.7 0.6 - 1.1 cm TR Peak Damien 2.0 m/sec IVS/LVPW 2D 1.2 TR Peak PG 17.0 mmHg AoR Diam 2D 2.5 2.0 - 3.7 cm RVSP 25.0 mmHg LA/Ao 2D 1 0 - 1 EDV 2D 132.0 cm3 ESV 2D 103.0 cm3 LA Dimen 2D 3.1 2.3 - 4.0 cm Findings Left Ventricle: Normal left ventricular cavity size. Normal left ventricular wall thickness. Severe global left ventricular systolic dysfunction. Ejection fraction is visually estimated at 25 %. Abnormal Diastolic Function. Right Ventricle: Mild enlargement of right ventricle. Moderate right ventricular hypokinesis. Left Atrium: The left atrium is normal in size. Right Atrium: The right atrium is normal in size. Mitral Valve: Mitral valve leaflets appear moderately thickened. Mild mitral annular calcification. Mild mitral valve regurgitation. Aortic Valve: No significant aortic stenosis or insufficiency. Aortic cusps appear mildly calcified. Tricuspid Valve: Normal appearance of the tricuspid valve. Estimated peak PA systolic pressure 25 mmHg. There is trace tricuspid regurgitation. Pericardium: Trivial pericardial effusion. Aorta: Normal aortic root. IVC: Inferior vena cava without respiratory collapse, however, patient on ventilator. Conclusions 1.Normal left ventricular cavity size. Normal left ventricular wall thickness. Severe global left ventricular systolic dysfunction. Ejection fraction is visually estimated at 25 %. Abnormal Diastolic Function. 2.Mild enlargement of right ventricle. Moderate right ventricular hypokinesis. 3.The left atrium is normal in size. 4.The right atrium is normal in size. 5.Mild mitral valve regurgitation. 6.No significant aortic stenosis or insufficiency. 7.Estimated peak PA systolic pressure 25 mmHg. There is trace tricuspid regurgitation. 8.Trivial pericardial effusion. Electronically Signed By: Giorgio Knight 13-Apr-2016 14:09:07 -0800 Patient Name: ANGEL LEBRON Study Date: 13-Apr-[id number]
[2016-04-13 14:10] LABS: AADO2 Arterial 261.7 mmHg (7.0-24.0); Allen Test ACCEPTAB; Arterial Base Excess -5.4 mmol/L (-3.0-3); Arterial COHb 0.3 % (0.0-3.0); Arterial Fraction of Oxyhgb 95.2 % (93.0-99.0); Arterial HCO3 18.4 mmol/L (22.0-26.0); Arterial MetHb 0 % (0.0-1.5); Arterial Total Hemglobin 14.7 g/dl (12.0-18.0); MODE VENT - AC
--- NOTE | 2016-04-13 14:26 | RADRPT ---
Vent Rate: 103 bpm RR Interval: 0 msec NM Interval: 172 msec QRS Duration: 104 msec QT Interval: 360 msec QTC Interval: 471 msec P-R-T [place]: 70 - 78 - 85 degrees Age and gender specific ECG analysis Sinus tachycardia ST elevation, consider inferior injury or acute infarct Abnormal ECG Electronically Signed By: Giorgio Knight [id number]
--- NOTE | 2016-04-13 14:26 | RADRPT ---
Vent Rate: 123 bpm RR Interval: 0 msec DC Interval: 168 msec QRS Duration: 104 msec QT Interval: 316 msec QTC Interval: 452 msec P-R-T [place]: 52 - 80 - 81 degrees Sinus tachycardia Nonspecific ST and T wave abnormality Abnormal ECG Electronically Signed By: Giorgio Knight [id number]
[2016-04-13] MEDS ORDERED: morphine 2 MG INJ IV PRN (14:30)
[2016-04-13 16:27] LABS: HEMATOCRIT 41.1 % (37.0-47.0); HEMOGLOBIN 13.6 g/dl (12.0-16.0); MEAN CORPUSCULAR HEMOGLOBIN 29.2 pg (29.0-33.0); MEAN CORPUSCULAR HGB CONC 33.1 g/dl (32.0-37.0); MEAN CORPUSCULAR VOLUME 88.2 fl (82.0-101.0); MEAN PLATELET VOLUME 9.3 fl (7.4-10.4); PLATELET COUNT 314 10^3/UL (140-440); RED BLOOD COUNT 4.66 10^6/ul (4.20-5.40); RED CELL DISTRIBUTION WIDTH 13.8 % (11.5-14.5); UNCORRECTED WBC 21.7 10^3/ul (4.8-10.8); WHITE BLOOD COUNT 21.7 10^3/ul (4.8-10.8)
[2016-04-13 16:30] LABS: ALBUMIN 3.6 g/dl (3.3-4.9)
[2016-04-13 16:31] LABS: POTASSIUM 4.6 mmol/L (3.5-5.1)
[2016-04-13 16:33] LABS: ALBUMIN/GLOBULIN RATIO 1.2; BILIRUBIN,INDIRECT 0.8 mg/dl (0-1.1); BILIRUBIN,TOTAL 0.8 mg/dl (0.2-1.3); CREATININE 0.44 mg/dl (0.44-1.00); TOTAL PROTEIN 6.6 g/dl (6.1-8.1)
[2016-04-13 16:34] LABS: CALCIUM 7.9 mg/dl (8.4-10.2)
[2016-04-13 16:35] LABS: INR 1.12; PROTIME 14.4 Sec (12.2-14.2); PT RATIO 1.1
[2016-04-13 16:36] LABS: CONDITION 1; LH ANALYZER COMMENTS 1; PARTIAL THROMBOPLASTIN TIME 28.8 Sec (25.0-35.0); SUSPECT 1
[2016-04-13] MEDS: FENTAnyl 1,000 MCG in DEXTROSE 5% 80 ML IV SCH (16:39)
[2016-04-13 16:43] LABS: CK-MB 72.2 ng/ml (0.0-2.4)
[2016-04-13 16:49] LABS: TROPONIN-I 3.68 ng/ml (0.00-0.12)
[2016-04-13 17:08] LABS: LYMPHOCYTES # 0.7 10^3/ul (0.8-2.9); MONOCYTE # 0.9 10^3/ul (0.3-0.9); NEUTROPHIL # 19.1 10^3/ul (1.6-7.5)
[2016-04-13] MEDS: NORepinephrine 8MG/250 ML (PMX 250 ML IV SCH (17:21)
[2016-04-13] MEDS: PIPER-TAZO 3.375 GM IV (PMX) 100 ML IVPB SCH (17:58)
[2016-04-13] MEDS: PROPOFOL 100 ML IV SCH (17:59)
[2016-04-13 21:42] LABS: AADO2 Arterial 275.1 mmHg (7.0-24.0); Arterial Base Excess -9.4 mmol/L (-3.0-3); Arterial COHb 0.3 % (0.0-3.0); Arterial Fraction of Oxyhgb 85.9 % (93.0-99.0); Arterial HCO3 17.6 mmol/L (22.0-26.0); Arterial MetHb 0 % (0.0-1.5); Arterial Total Hemglobin 14.7 g/dl (12.0-18.0); MODE VENT - AC
[2016-04-13 23:27] LABS: AADO2 Arterial 610.6 mmHg (7.0-24.0); Arterial Base Excess -9.1 mmol/L (-3.0-3); Arterial COHb 0.3 % (0.0-3.0); Arterial Fraction of Oxyhgb 95.9 % (93.0-99.0); Arterial HCO3 16.9 mmol/L (22.0-26.0); Arterial MetHb 0.1 % (0.0-1.5); Arterial Total Hemglobin 14.8 g/dl (12.0-18.0); MODE VENT - AC
[2016-04-14] VITALS (103 sets, daily range): BP systolic 73–123; BP diastolic 49–89; PULSE 68–130; RESP 10–31
[2016-04-14] MEDS: ARTIFICIAL TEARS 15 ML OPH BOTH EYES SCH ×4 (00:01→17:29)
[2016-04-14] MEDS: ACCUCHECK XX SCH ×25 (00:30→23:30)
[2016-04-14] MEDS: PIPER-TAZO 3.375 GM IV (PMX) 100 ML IVPB SCH ×3 (01:42→17:29)
[2016-04-14] MEDS: PROPOFOL 100 ML IV SCH ×3 (01:43→19:23)
[2016-04-14] MEDS: FENTAnyl 1,000 MCG in DEXTROSE 5% 80 ML IV SCH ×3 (02:39→22:43)
[2016-04-14] MEDS: NORepinephrine 8MG/250 ML (PMX 250 ML IV SCH ×2 (03:41→13:23)
[2016-04-14 05:21] LABS: INR 1.16; PROTIME 14.9 Sec (12.2-14.2); PT RATIO 1.2
[2016-04-14 05:40] LABS: ALBUMIN 3.2 g/dl (3.3-4.9)
[2016-04-14 05:41] LABS: POTASSIUM 4.1 mmol/L (3.5-5.1)
[2016-04-14 05:43] LABS: ALBUMIN/GLOBULIN RATIO 1.03; BILIRUBIN,INDIRECT 0.3 mg/dl (0-1.1); BILIRUBIN,TOTAL 0.3 mg/dl (0.2-1.3); CREATININE 0.42 mg/dl (0.44-1.00); TOTAL PROTEIN 6.3 g/dl (6.1-8.1)
[2016-04-14 05:44] LABS: CALCIUM 7.5 mg/dl (8.4-10.2)
[2016-04-14] MEDS: PANTOPRAZOLE 40 MG INJ IV SCH (05:47)
[2016-04-14] MEDS: OCULAR LUBRICANT 3.5 GM OPH OINT BOTH EYES SCH ×4 (05:47→17:29)
[2016-04-14] MEDS: ACETAMINOPHEN 325 MG TAB PO PRN (05:56)
[2016-04-14] MEDS: ACETAMINOPHEN 650 MG SUPP PR SCH ×3 (05:57→18:40)
[2016-04-14 06:10] LABS: TROPONIN-I 2.24 ng/ml (0.00-0.12)
[2016-04-14] MEDS ORDERED: SOD CHLORIDE 0.9% 1,000 ML IV ONE (06:30)
[2016-04-14 07:39] LABS: Allen Test ACCEPTAB; MODE VENT - AC
[2016-04-14 07:45] LABS: AADO2 Arterial 619.3 mmHg (7.0-24.0); Allen Test ACCEPTAB; Arterial Base Excess -8.9 mmol/L (-3.0-3); Arterial COHb 0.3 % (0.0-3.0); Arterial Fraction of Oxyhgb 95.7 % (93.0-99.0); Arterial MetHb 0.1 % (0.0-1.5); Arterial Total Hemglobin 13.9 g/dl (12.0-18.0); MODE VENT - AC
[2016-04-14] MEDS ORDERED: VECURONIUM 100 MG in DEXTROSE 5% 100 ML IV SCH (08:00)
[2016-04-14] MEDS: SOD CHLORIDE 0.9% 1,000 ML IV SCH (08:00)
[2016-04-14] MEDS: HEPARIN 5,000 UNIT/0.5 ML SYG SC SCH ×2 (09:30→20:46)
--- NOTE | 2016-04-14 09:36 | RADRPT ---
PROCEDURE: XR Chest. CLINICAL INDICATION: Pneumonia TECHNIQUE: A single AP view of the chest was obtained. COMPARISON: Chest x-ray dated 04/13/2016 FINDINGS: The endotracheal tube tip is approximately 3.0 cm above the bro. The tip of the enteric tube ex tends below the left diaphragm. Is a left subclavian central venous catheter with tip near the cavoa trial junction. There are right upper lobe and diffuse left lung alveolar opacities. No pleural effusion or pneumot horax is seen. The cardiomediastinal silhouette is within normal limits for size. The osseous stru ctures are unremarkable. IMPRESSION: 1. Right upper lobe and diffuse left lung alveolar opacities, may reflect pulmonary edema or multif ocal pneumonia. Findings are increased when compared to the prior examination. 2. Tubes and lines, as described above. RPTAT: HH .Janae Aquino MD, Date Time Electronically viewed and signed by .Janae Aquino MD, on 04/14/2016 09:35 .G/
[2016-04-14 09:38] LABS: HEMATOCRIT 41.6 % (37.0-47.0); HEMOGLOBIN 13.7 g/dl (12.0-16.0); MEAN CORPUSCULAR HEMOGLOBIN 29.4 pg (29.0-33.0); MEAN CORPUSCULAR HGB CONC 32.9 g/dl (32.0-37.0); MEAN CORPUSCULAR VOLUME 89.5 fl (82.0-101.0); PLATELET COUNT 321 10^3/UL (140-440); RED BLOOD COUNT 4.65 10^6/ul (4.20-5.40); RED CELL DISTRIBUTION WIDTH 13.9 % (11.5-14.5); UNCORRECTED WBC 26.5 10^3/ul (4.8-10.8); WHITE BLOOD COUNT 26.5 10^3/ul (4.8-10.8)
[2016-04-14 09:48] LABS: CONDITION 1; LH ANALYZER COMMENTS 1; SUSPECT 1
--- NOTE | 2016-04-14 11:03 | CONS ---
Date/Time of Note Date/Time of Note DATE: 04/14/16 TIME: 11:00 Consult Date/Type/Reason Admit Date/Time Apr 13, 2016 at 06:25 Initial Consult Date Type of Consultation: pulmonary Subjective Patient desaturations overnight increased pulmonary edema increased oxygen requirements Continues mechanical ventilation Started rewarming process Objective Vital Signs Date Time Temp Pulse Resp B/P Pulse Ox O2 Delivery O2 Flow Rate FiO2 04/14/16 09:45 80 04/14/16 09:00 92.5 91 21 101/80 100 Mechanical Ventilator 04/13/16 02:25 15.0 Intake and Output 04/13/16 04/13/16 04/14/16 15:00 23:00 07:00 Intake Total 903.90 ml 1315.18 ml 2162.62 ml Output Total 630 ml 934 ml 500 ml Balance 273.90 ml 381.18 ml 1662.62 ml PHYSICAL EXAMINATION: GENERAL: Well-nourished, well-developed lady, intubated on mechanical ventilation, appears comfortable at rest, no acute distress. VITAL SIGNS: As above NECK: Supple. No JVD or lymphadenopathy. CARDIAC: S1, S2, no added sounds or murmurs. CHEST: Diminished air entry bilaterally. ABDOMEN: Soft, nontender. No guarding or rebound. EXTREMITIES: No cyanosis, clubbing, edema. NEUROLOGIC: Unable to assess. Results/Medications Result Diagram: 04/14/16 0435 04/14/16 0435 Results 24 hrs Laboratory Tests Test 04/13/16 12:20 04/13/16 12:37 04/13/16 14:51 04/13/16 16:03 Arterial Blood HCO3 18.4 L Arterial Blood Base Excess -5.4 L Arterial Blood Oxygen Saturation 95.5 Colton Test ACCEPTAB Arterial Blood Gas Puncture Site Right Radial Arterial Blood Carboxyhemoglobin 0.3 Arterial Blood Date Drawn 04/13/2016 1:50:31 PM Arterial Blood Methemoglobin 0 Arterial Blood pCO2 (Temp correct) 28.4 L Arterial Blood pH (Temp corrected) 7.418 Arterial Blood pO2 (Temp corrected) 65.6 L Blood Gas A-a O2 Differential 261.7 H Blood Gas Actual Respiration Rate 19 Blood Gas Low PEEP Setting 5.0 Blood Gas Modality VENT - AC Blood Gas Notified Time 04/13/2016 2:10:38 PM Blood Gas Notified Whom JLD Blood Gas Respiration Rate 16.0 Blood Gas Specimen Source Blood arterial Blood Gas Temperature 34.8 Blood Gas Tidal Volume 550.0 FiO2 50.0 Oxyhemoglobin Percent 95.2 Total Hemoglobin 14.7 Bedside Glucose 102 88 Activated Partial Thromboplast Time 28.8 Alanine Aminotransferase (ALT/SGPT) 143 H Albumin 3.6 Albumin/Globulin Ratio 1.20 Alkaline Phosphatase 74 Anion Gap 18 H Aspartate Amino Transf (AST/SGOT) 210 H Band Neutrophils % 5.0 Blood Urea Nitrogen 7 Calcium Level 7.9 L Carbon Dioxide Level 21 Chloride Level 106 Creatine Kinase 1126 H Creatine Kinase Index 6.4 Creatinine 0.44 Creatinine Kinase MB (Mass) 72.20 H Direct Bilirubin 0.00 Globulin 3.00 Glucose Level 113 Hematocrit 41.1 Hemoglobin 13.6 INR International Normalized Ratio 1.12 Indirect Bilirubin 0.8 Lymphocytes # 0.7 L Lymphocytes % 3.0 L Mean Corpuscular Hemoglobin 29.2 Mean Corpuscular Hemoglobin Concent 33.1 Mean Corpuscular Volume 88.2 Mean Platelet Volume 9.3 Monocytes # 0.9 Monocytes % 4.0 Neutrophils # 19.1 H Neutrophils % 88.0 H Platelet Count 314 Potassium Level 4.6 Prothrombin Time 14.4 H Prothrombin Time Ratio 1.1 Red Blood Count 4.66 Red Cell Distribution Width 13.8 Sodium Level 140 Total Bilirubin 0.8 Total Protein 6.6 Troponin I 3.680 *H White Blood Count 21.7 H Test 04/13/16 16:44 04/13/16 18:05 04/13/16 18:20 04/13/16 20:22 Bedside Glucose 101 99 113 Arterial Blood HCO3 17.6 L Arterial Blood Base Excess -9.4 L Arterial Blood Oxygen Saturation 86.2 L Colton Test N/A Arterial Blood Gas Puncture Site Right Brachial Arterial Blood Carboxyhemoglobin 0.3 Arterial Blood Date Drawn 04/13/2016 9:35:47 PM Arterial Blood Methemoglobin 0 Arterial Blood pCO2 (Temp correct) 36.1 Arterial Blood pH (Temp corrected) 7.287 *L Arterial Blood pO2 (Temp corrected) 45.0 *L Blood Gas A-a O2 Differential 275.1 H Blood Gas Actual Respiration Rate 24 Blood Gas Critical Value Read Back Lynne SIMS RN Blood Gas Inspiratory Pressure 22.0 Blood Gas Low PEEP Setting 5.0 Blood Gas Modality VENT - AC Blood Gas Notified Time 04/13/2016 9:41:55 PM Blood Gas Notified Whom MG Blood Gas Respiration Rate 16.0 Blood Gas Specimen Source Blood arterial Blood Gas Temperature 33.4 Blood Gas Tidal Volume 500.0 FiO2 50.0 Oxyhemoglobin Percent 85.9 L Total Hemoglobin 14.7 Test 04/13/16 22:19 04/13/16 22:30 04/14/16 00:22 04/14/16 02:17 Bedside Glucose 106 85 96 Arterial Blood HCO3 16.9 L Arterial Blood Base Excess -9.1 L Arterial Blood Oxygen Saturation 96.3 Colton Test N/A Arterial Blood Gas Puncture Site Right Brachial Arterial Blood Carboxyhemoglobin 0.3 Arterial Blood Date Drawn 04/13/2016 11:11:32 PM Arterial Blood Methemoglobin 0.1 Arterial Blood pCO2 (Temp correct) 32.7 L Arterial Blood pH (Temp corrected) 7.317 L Arterial Blood pO2 (Temp corrected) 76.8 L Blood Gas A-a O2 Differential 610.6 H Blood Gas Actual Respiration Rate 16 Blood Gas Critical Value Read Back Christian WHALEN RN Blood Gas Inspiratory Pressure 29.0 Blood Gas Low PEEP Setting 5.0 Blood Gas Modality VENT - AC Blood Gas Notified Time 04/13/2016 11:26:54 PM Blood Gas Notified Whom RTR Blood Gas Respiration Rate 16.0 Blood Gas Specimen Source Blood arterial Blood Gas Temperature 34.1 Blood Gas Tidal Volume 550.0 FiO2 100.0 Oxyhemoglobin Percent 95.9 Total Hemoglobin 14.8 Test 04/14/16 03:13 04/14/16 04:35 04/14/16 05:03 04/14/16 05:40 Bedside Glucose 98 88 85 Alanine Aminotransferase (ALT/SGPT) 123 H Albumin 3.2 L Albumin/Globulin Ratio 1.03 Alkaline Phosphatase 73 Anion Gap 13 Aspartate Amino Transf (AST/SGOT) 136 H Basophils # Pending Basophils % Pending Blood Urea Nitrogen 7 Calcium Level 7.5 L Carbon Dioxide Level 23 Chloride Level 107 Creatinine 0.42 L Direct Bilirubin 0.00 Eosinophils # Pending Eosinophils % Pending Globulin 3.10 Glucose Level 100 Hematocrit 41.6 Hemoglobin 13.7 INR International Normalized Ratio 1.16 Indirect Bilirubin 0.3 Lactic Acid Level 2.5 H Lymphocytes # Pending Lymphocytes % Pending Mean Corpuscular Hemoglobin 29.4 Mean Corpuscular Hemoglobin Concent 32.9 Mean Corpuscular Volume 89.5 Mean Platelet Volume 10.0 Monocytes # Pending Monocytes % Pending Neutrophils # Pending Neutrophils % Pending Nucleated Red Blood Cells # Pending Nucleated Red Blood Cells % Pending Platelet Count 321 Potassium Level 4.1 Prothrombin Time 14.9 H Prothrombin Time Ratio 1.2 Red Blood Count 4.65 Red Cell Distribution Width 13.9 Sodium Level 139 Total Bilirubin 0.3 Total Protein 6.3 Troponin I 2.240 *H White Blood Count 26.5 #H Test 04/14/16 06:20 04/14/16 07:25 04/14/16 09:26 Arterial Blood HCO3 18.0 L Arterial Blood Base Excess -8.9 L Arterial Blood Oxygen Saturation 96.1 Colton Test ACCEPTAB Arterial Blood Gas Puncture Site Right Radial Arterial Blood Carboxyhemoglobin 0.3 Arterial Blood Date Drawn 04/14/2016 7:20:00 AM Arterial Blood Methemoglobin 0.1 Arterial Blood pCO2 (Temp correct) 34.9 L Arterial Blood pH (Temp corrected) 7.307 L Arterial Blood pO2 (Temp corrected) 69.2 L Blood Gas A-a O2 Differential 619.3 H Blood Gas Actual Respiration Rate 19 Blood Gas Critical Value Read Back E CELESTE ZACARIAS Blood Gas Low PEEP Setting 5.0 Blood Gas Modality VENT - AC Blood Gas Notified Time 04/14/2016 7:39:00 AM Blood Gas Notified Whom JLD Blood Gas Respiration Rate 16.0 Blood Gas Specimen Source Blood arterial Blood Gas Temperature 32.5 Blood Gas Tidal Volume 550.0 FiO2 100.0 Oxyhemoglobin Percent 95.7 Total Hemoglobin 13.9 Bedside Glucose 86 86 Medications Current Medications Ondansetron HCl (Zofran Inj) 4 mg Q6H PRN IV NAUSEA AND/OR VOMITING; Start at 06:30 Acetaminophen (Tylenol Tab) 650 mg Q6H PRN PO PAIN LEVEL 1-3 OR FEVER Last administered on 04/14/16 05:56; Admin Dose 650 MG; Start 04/13/16 at 06:30 Acetaminophen (Tylenol Supp) 650 mg Q4H PRN [place] PAIN LEVEL 1-3 OR FEVER; Start 04/13/16 at 06:30 Pantoprazole (Protonix Iv) 40 mg DAILY@06 IV Last administered on 04/14/16 05: 47; Admin Dose 40 MG; Start 04/14/16 at 06:00 Heparin Sodium (Porcine) (Heparin (5000 Units/0.5 ml)) 5,000 unit Q12 SC Last administered on 04/14/16 09:30; Admin Dose 5,000 UNIT; Start 04/13/16 at 09:00 Diagnostic Test (Pha) (Accucheck) 1 ea Q1H XX Last administered on 04/14/16 09 :31; Admin Dose 1 EA; Start 04/13/16 at 06:30 Dextrose (D50w Syringe) 25 ml Q15M PRN IV Till BS 80 mg/dL or above x2; Start 04/13/16 at 06:30 Dextrose 50 ml 50 ml Q15M PRN IV Till BS 80 mg/dL or above x2; Start 04/13/16 at 06:30 Sodium Chloride (NS) 1,000 ml @ 100 mls/hr Q10H IV Last administered on 08:00; Admin Dose 100 MLS/HR; Start 04/13/16 at 06:20 Acetaminophen (Tylenol Supp) 650 mg Q4H PRN [place] TEMP > 37C; Start 04/13/16 at 06 :30 Acetaminophen (Tylenol Liquid) 650 mg Q4H PRN PO TEMP > 37C; Start 04/13/16 at 06:30 Acetaminophen (Tylenol Supp) 500 mg Q6H [place] ; Start 04/14/16 at 06:30 Meperidine HCl (Demerol) 12.5 mg Q4H PRN IV POST OPERATIVE SHIVERING; Start at 06:30 Meperidine HCl (Demerol) 25 mg Q4H PRN IV POST OPERATIVE SHIVERING; Start 04/13 at 06:30 Eye Lubricant (Akwa Oint) 1 applic Q6 BOTH EYES Last administered on 04/14/16 05:47; Admin Dose 1 APPLIC; Start 04/13/16 at 12:00 Eye Lubricant 2 drop 2 drop Q6 BOTH EYES Last administered on 04/14/16 05:47; Admin Dose 2 DROP; Start 04/13/16 at 12:00 Piperacillin Sod/ Tazobactam Sod 100 ml @ 25 mls/hr TID@02,10,18 IVPB Last administered on 04/14/16 09:31; Admin Dose 25 MLS/HR; Start 04/13/16 at 18:00 Fentanyl 1000 mcg/ Dextrose 100 ml @ 2.5 mls/hr TITRATE IV Last administered on 04/14/16 02:39; Admin Dose 10 MLS/HR; Start 04/13/16 at 15:30 Norepinephrine (Levophed) 250 ml @ 1.875 mls/ hr TITRATE IV Last administered on 04/14/16 03:41; Admin Dose 22.744 MLS/HR; Start 04/13/16 at 15:30 Morphine Sulfate 2 mg 2 mg Q3H PRN IV PAIN; Start 04/13/16 at 15:25 Propofol (Diprivan) 100 ml @ 2.55 mls/hr Q12H IV Last administered on 01:43; Admin Dose 11.332 MLS/HR; Start 04/13/16 at 17:30 Assessment/Plan Chief Complaint/Hosp Course IMPRESSION AND PLAN: 1. Cardiopulmonary arrest. 2. Ventricular fibrillation. 3. Positive methamphetamines. 4. Probable aspiration pneumonia. Evidence of pulmonary edema on chest x-ray. Hypoxemic respiratory failure 5. 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 The patient will require: 1. Continued mechanical ventilation. 2. Broad-spectrum antibiotics. 3. Cardiology evaluation. 4. Glycemic management. 5. DVT and GI prophylaxis. 6. Continue rewarming process 7. May require neurology evaluation to rule out anoxic brain injury Problems: SHELLEY AVILA MD, [facility] Apr 14, 2016 11:03
[2016-04-14] MEDS: DEXTROSE 50% 50 ML SYRINGE IV PRN ×2 (11:50→15:17)
[2016-04-14 12:57] LABS: EOSINOPHILS # 0.3 10^3/ul (0.0-0.5); LYMPHOCYTES # 1.6 10^3/ul (0.8-2.9); MONOCYTE # 0.5 10^3/ul (0.3-0.9); NEUTROPHIL # 20.9 10^3/ul (1.6-7.5)
[2016-04-14 12:58] LABS: PLATELET ESTIMATE PLT APPEAR ADEQUATE
--- NOTE | 2016-04-14 13:07 | PN ---
Date/Time of Note Date/Time of Note DATE: 04/14/16 TIME: 13:03 Assessment/Plan VTE Prophylaxis VTE Prophylaxis Intervention: heparin Lines/Catheters IV C[facility]ter Type (from [facility]): Central Line Central line still needed: Yes Urinary Cath still in place: Yes Reason Cath still needed: other (indicate) Assessment/Plan Assessment/Plan 1. S/p Cardiopulmonary arrest, hypothermia protocol 2. Ventricular fibrillation, on amiodarone drip, follow up with cardiology 3. Right upper lobe pneumonia, likely aspiration, zosyn 4. Ventilator-dependent respiratory failure, follow up with pulmonology 5. Severe lactic acidosis from cardiac arrest and sepsis 6. Mildly elevated troponin, follow up with cardiology 7. Acute pancreatitis from cardiopulmonary arrest/ischemia, and ETOH, follow up with amylase/lipase 8. Elevated transaminases, shock related, ETOH, follow up with LFTs 9. Substance abuse 10. GI/DVT prophylaxis Subjective 24 Hr Interval Summary Free Text/Dictation still intubated and sedated, rewarming on hypothermia treatment. Talked with the family. Exam/Review of Systems Vital Signs Vitals Vital Signs Date Time Temp Pulse Resp B/P Pulse Ox O2 Delivery O2 Flow Rate FiO2 04/14/16 11:15 76 17 103/55 100 Mechanical Ventilator 04/14/16 11:05 80 04/14/16 11:00 93.6 04/13/16 02:25 15.0 Intake and Output 04/13/16 04/13/16 04/14/16 15:00 23:00 07:00 Intake Total 903.90 ml 1315.18 ml 2162.62 ml Output Total 630 ml 934 ml 500 ml Balance 273.90 ml 381.18 ml 1662.62 ml Exam Constitutional: non-verbal, other (intubated and sedated) Head: atraumatic, normocephalic Eyes: EOMI, PERRL, nl conjunctiva, nl lids, nl sclera ENMT: mucosa pink and moist, nl external ears & nose, nl lips & teeth, nl nasal mucosa & septum Neck: supple Respiratory: clear to auscultation, diminished breath sounds (on right upper chest) Cardiovascular: nl pulses, regular rate and rhythm, No S3, No S4, No bruits, No diastolic murmur, No edema, No gallop, No irregular rhythm, No jugular venous distention (JVD), No murmurs/extra sounds, No rub, No systolic murmur Gastrointestinal: nl liver, spleen, soft, No ascites, No bowel sounds, No distended, No firm, No hepatomegaly, No mass , No rebound or guarding, No splenomegaly, No surgical scars, No tender Musculoskeletal: nl extremities to inspection Extremities: normal pulses, No calf tenderness, No clubbing, No cyanosis, No edema, No palpable cord, No pitting pedal edema Neurological: unresponsive (sedated) Skin: nl turgor, rash or lesions Lymph: nl lymph nodes Results Result Diagram: 04/14/16 0435 04/14/16 0435 Results 24 hrs Laboratory Tests Test 04/13/16 14:51 04/13/16 16:03 04/13/16 16:44 04/13/16 18:05 Bedside Glucose 88 101 99 Activated Partial Thromboplast Time 28.8 Alanine Aminotransferase (ALT/SGPT) 143 H Albumin 3.6 Albumin/Globulin Ratio 1.20 Alkaline Phosphatase 74 Anion Gap 18 H Aspartate Amino Transf (AST/SGOT) 210 H Band Neutrophils % 5.0 Blood Urea Nitrogen 7 Calcium Level 7.9 L Carbon Dioxide Level 21 Chloride Level 106 Creatine Kinase 1126 H Creatine Kinase Index 6.4 Creatinine 0.44 Creatinine Kinase MB (Mass) 72.20 H Direct Bilirubin 0.00 Globulin 3.00 Glucose Level 113 Hematocrit 41.1 Hemoglobin 13.6 INR International Normalized Ratio 1.12 Indirect Bilirubin 0.8 Lymphocytes # 0.7 L Lymphocytes % 3.0 L Mean Corpuscular Hemoglobin 29.2 Mean Corpuscular Hemoglobin Concent 33.1 Mean Corpuscular Volume 88.2 Mean Platelet Volume 9.3 Monocytes # 0.9 Monocytes % 4.0 Neutrophils # 19.1 H Neutrophils % 88.0 H Platelet Count 314 Potassium Level 4.6 Prothrombin Time 14.4 H Prothrombin Time Ratio 1.1 Red Blood Count 4.66 Red Cell Distribution Width 13.8 Sodium Level 140 Total Bilirubin 0.8 Total Protein 6.6 Troponin I 3.680 *H White Blood Count 21.7 H Test 04/13/16 18:20 04/13/16 20:22 04/13/16 22:19 04/13/16 22:30 Arterial Blood HCO3 17.6 L 16.9 L Arterial Blood Base Excess -9.4 L -9.1 L Arterial Blood Oxygen Saturation 86.2 L 96.3 Colton Test N/A N/A Arterial Blood Gas Puncture Site Right Brachial Right Brachial Arterial Blood Carboxyhemoglobin 0.3 0.3 Arterial Blood Date Drawn 04/13/2016 9:35:47 PM 04/13/2016 11:11:32 PM Arterial Blood Methemoglobin 0 0.1 Arterial Blood pCO2 (Temp correct) 36.1 32.7 L Arterial Blood pH (Temp corrected) 7.287 *L 7.317 L Arterial Blood pO2 (Temp corrected) 45.0 *L 76.8 L Blood Gas A-a O2 Differential 275.1 H 610.6 H Blood Gas Actual Respiration Rate 24 16 Blood Gas Critical Value Read Back Lynne SIMS RN, M. RN Blood Gas Inspiratory Pressure 22.0 29.0 Blood Gas Low PEEP Setting 5.0 5.0 Blood Gas Modality VENT - AC VENT - AC Blood Gas Notified Time 04/13/2016 9:41:55 PM 04/13/2016 11:26:54 PM Blood Gas Notified Whom MG RTR Blood Gas Respiration Rate 16.0 16.0 Blood Gas Specimen Source Blood arterial Blood arterial Blood Gas Temperature 33.4 34.1 Blood Gas Tidal Volume 500.0 550.0 FiO2 50.0 100.0 Oxyhemoglobin Percent 85.9 L 95.9 Total Hemoglobin 14.7 14.8 Bedside Glucose 113 106 Test 04/14/16 00:22 04/14/16 02:17 04/14/16 03:13 04/14/16 04:35 Bedside Glucose 85 96 98 Alanine Aminotransferase (ALT/SGPT) 123 H Albumin 3.2 L Albumin/Globulin Ratio 1.03 Alkaline Phosphatase 73 Anion Gap 13 Aspartate Amino Transf (AST/SGOT) 136 H Band Neutrophils % 12.0 H Basophils # Basophils % Blood Urea Nitrogen 7 Calcium Level 7.5 L Carbon Dioxide Level 23 Chloride Level 107 Creatinine 0.42 L Differential Comment MANUAL DIFF Direct Bilirubin 0.00 Eosinophils # 0.3 Eosinophils % 1.0 Globulin 3.10 Glucose Level 100 Hematocrit 41.6 Hemoglobin 13.7 INR International Normalized Ratio 1.16 Indirect Bilirubin 0.3 Lactic Acid Level 2.5 H Lymphocytes # 1.6 Lymphocytes % 6.0 L Mean Corpuscular Hemoglobin 29.4 Mean Corpuscular Hemoglobin Concent 32.9 Mean Corpuscular Volume 89.5 Mean Platelet Volume 10.0 Monocytes # 0.5 Monocytes % 2.0 Neutrophils # 20.9 H Neutrophils % 79.0 H Nucleated Red Blood Cells # Nucleated Red Blood Cells % Platelet Count 321 Platelet Estimate PLT APPEAR ADEQUATE Potassium Level 4.1 Prothrombin Time 14.9 H Prothrombin Time Ratio 1.2 Red Blood Count 4.65 Red Cell Distribution Width 13.9 Sodium Level 139 Total Bilirubin 0.3 Total Protein 6.3 Troponin I 2.240 *H White Blood Count 26.5 #H Test 04/14/16 05:03 04/14/16 05:40 04/14/16 06:20 04/14/16 07:25 Bedside Glucose 88 85 86 Arterial Blood HCO3 18.0 L Arterial Blood Base Excess -8.9 L Arterial Blood Oxygen Saturation 96.1 Colton Test ACCEPTAB Arterial Blood Gas Puncture Site Right Radial Arterial Blood Carboxyhemoglobin 0.3 Arterial Blood Date Drawn 04/14/2016 7:20:00 AM Arterial Blood Methemoglobin 0.1 Arterial Blood pCO2 (Temp correct) 34.9 L Arterial Blood pH (Temp corrected) 7.307 L Arterial Blood pO2 (Temp corrected) 69.2 L Blood Gas A-a O2 Differential 619.3 H Blood Gas Actual Respiration Rate 19 Blood Gas Critical Value Read Back Micky ALONSO RN Blood Gas Low PEEP Setting 5.0 Blood Gas Modality VENT - AC Blood Gas Notified Time 04/14/2016 7:39:00 AM Blood Gas Notified Whom JLD Blood Gas Respiration Rate 16.0 Blood Gas Specimen Source Blood arterial Blood Gas Temperature 32.5 Blood Gas Tidal Volume 550.0 FiO2 100.0 Oxyhemoglobin Percent 95.7 Total Hemoglobin 13.9 Test 04/14/16 09:26 04/14/16 11:46 04/14/16 12:04 04/14/16 12:21 Bedside Glucose 86 57 L 120 76 Test 04/14/16 12:45 Bedside Glucose 83 Medications Medications Current Medications Ondansetron HCl (Zofran Inj) 4 mg Q6H PRN IV NAUSEA AND/OR VOMITING; Start at 06:30 Acetaminophen (Tylenol Tab) 650 mg Q6H PRN PO PAIN LEVEL 1-3 OR FEVER Last administered on 04/14/16t 05:56; Admin Dose 650 MG; Start 04/13/16 at 06:30 Acetaminophen (Tylenol Supp) 650 mg Q4H PRN AR PAIN LEVEL 1-3 OR FEVER; Start 04/13/16 at 06:30 Pantoprazole (Protonix Iv) 40 mg DAILY@06 IV Last administered on 04/14/16 05: 47; Admin Dose 40 MG; Start 04/14/16 at 06:00 Heparin Sodium (Porcine) (Heparin (5000 Units/0.5 ml)) 5,000 unit Q12 SC Last administered on 04/14/16 09:30; Admin Dose 5,000 UNIT; Start 04/13/16 at 09:00 Diagnostic Test (Pha) (Accucheck) 1 ea Q1H XX Last administered on 04/14/16 11 :35; Admin Dose 1 EA; Start 04/13/16 at 06:30 Dextrose (D50w Syringe) 25 ml Q15M PRN IV Till BS 80 mg/dL or above x2 Last administered on 04/14/16 11:50; Admin Dose 25 ML; Start 04/13/16 at 06:30 Dextrose 50 ml 50 ml Q15M PRN IV Till BS 80 mg/dL or above x2; Start 04/13/16 at 06:30 Sodium Chloride (NS) 1,000 ml @ 100 mls/hr Q10H IV Last administered on 08:00; Admin Dose 100 MLS/HR; Start 04/13/16 at 06:20 Acetaminophen (Tylenol Supp) 650 mg Q4H PRN AR TEMP > 37C; Start 04/13/16 at 06 :30 Acetaminophen (Tylenol Liquid) 650 mg Q4H PRN PO TEMP > 37C; Start 04/13/16 at 06:30 Acetaminophen (Tylenol Supp) 500 mg Q6H AR ; Start 04/14/16 at 06:30 Meperidine HCl (Demerol) 12.5 mg Q4H PRN IV POST OPERATIVE SHIVERING; Start at 06:30 Meperidine HCl (Demerol) 25 mg Q4H PRN IV POST OPERATIVE SHIVERING; Start 04/13 at 06:30 Eye Lubricant (Akwa Oint) 1 applic Q6 BOTH EYES Last administered on 04/14/16 12:09; Admin Dose 1 APPLIC; Start 04/13/16 at 12:00 Eye Lubricant 2 drop 2 drop Q6 BOTH EYES Last administered on 04/14/16 12:09; Admin Dose 2 DROP; Start 04/13/16 at 12:00 Piperacillin Sod/ Tazobactam Sod 100 ml @ 25 mls/hr TID@18 IVPB Last administered on 04/14/16 09:31; Admin Dose 25 MLS/HR; Start 04/13/16 at 18:00 Fentanyl 1000 mcg/ Dextrose 100 ml @ 2.5 mls/hr TITRATE IV Last administered on 04/14/16 12:54; Admin Dose 10 MLS/HR; Start 04/13/16 at 15:30 Norepinephrine (Levophed) 250 ml @ 1.875 mls/ hr TITRATE IV Last administered on 04/14/16 03:41; Admin Dose 22.744 MLS/HR; Start 04/13/16 at 15:30 Morphine Sulfate 2 mg 2 mg Q3H PRN IV PAIN; Start 04/13/16 at 15:25 Propofol (Diprivan) 100 ml @ 2.55 mls/hr Q12H IV Last administered on 11:43; Admin Dose 10.2 MLS/HR; Start 04/13/16 at 17:30 COLLIN MANNING MD Apr 14, 2016 13:07
[2016-04-14] MEDS ORDERED: FUROSEMIDE 20 MG INJ IV ONE (13:30)
--- NOTE | 2016-04-14 13:40 | CONS ---
Date/Time of Note Date/Time of Note DATE: 04/14/16 TIME: 13:37 Assessment/Plan Assessment/Plan Additional Assessment/Plan Cardiac arrest Ventricular fibrillation Severe cardiomyopathy with ejection fraction 25% Methamphetamine use Elevated troponins -Troponins are trending down, likely secondary to cardiac arrest and requiring defibrillation. Continue IV pressor to maintain systolic blood pressure greater than 90 and/or map above 60, if no contraindication, would start aspirin and statin therapy Consultation Date/Type/Reason Admit Date/Time Apr 13, 2016 at 06:25 Initial Consult Date Type of Consultation: cv 24 HR Interval Summary Free Text/Dictation Patient undergoing warming protocol of hypothermia. Had to be started on levophed secondary to hypotension. Exam/Review of Systems Vital Signs Vitals Vital Signs Date Time Temp Pulse Resp B/P Pulse Ox O2 Delivery O2 Flow Rate FiO2 04/14/16 11:15 76 17 103/55 100 Mechanical Ventilator 04/14/16 11:05 80 04/14/16 11:00 93.6 04/13/16 02:25 15.0 Intake and Output 04/13/16 04/13/16 04/14/16 14:59 22:59 06:59 Intake Total 766.59 ml 1294.08 ml 1275.28 ml Output Total 630 ml 859 ml 518 ml Balance 136.59 ml 435.08 ml 757.28 ml Exam Sedated and intubated, no apparent distress Head: normocephalic ENMT: intubated Respiratory: other (course breath sounds bilaterally, no wheezing) Cardiovascular: other (S1-S2 heard), regular rate and rhythm Gastrointestinal: bowel sounds, non-tender, other, soft Extremities: other (no edema) Results Result Diagram: 04/14/16 0435 04/14/16 0435 Results 24 hrs Laboratory Tests Test 04/13/16 14:51 04/13/16 16:03 04/13/16 16:44 04/13/16 18:05 Bedside Glucose 88 101 99 Activated Partial Thromboplast Time 28.8 Alanine Aminotransferase (ALT/SGPT) 143 H Albumin 3.6 Albumin/Globulin Ratio 1.20 Alkaline Phosphatase 74 Anion Gap 18 H Aspartate Amino Transf (AST/SGOT) 210 H Band Neutrophils % 5.0 Blood Urea Nitrogen 7 Calcium Level 7.9 L Carbon Dioxide Level 21 Chloride Level 106 Creatine Kinase 1126 H Creatine Kinase Index 6.4 Creatinine 0.44 Creatinine Kinase MB (Mass) 72.20 H Direct Bilirubin 0.00 Globulin 3.00 Glucose Level 113 Hematocrit 41.1 Hemoglobin 13.6 INR International Normalized Ratio 1.12 Indirect Bilirubin 0.8 Lymphocytes # 0.7 L Lymphocytes % 3.0 L Mean Corpuscular Hemoglobin 29.2 Mean Corpuscular Hemoglobin Concent 33.1 Mean Corpuscular Volume 88.2 Mean Platelet Volume 9.3 Monocytes # 0.9 Monocytes % 4.0 Neutrophils # 19.1 H Neutrophils % 88.0 H Platelet Count 314 Potassium Level 4.6 Prothrombin Time 14.4 H Prothrombin Time Ratio 1.1 Red Blood Count 4.66 Red Cell Distribution Width 13.8 Sodium Level 140 Total Bilirubin 0.8 Total Protein 6.6 Troponin I 3.680 *H White Blood Count 21.7 H Test 04/13/16 18:20 04/13/16 20:22 04/13/16 22:19 04/13/16 22:30 Arterial Blood HCO3 17.6 L 16.9 L Arterial Blood Base Excess -9.4 L -9.1 L Arterial Blood Oxygen Saturation 86.2 L 96.3 Colton Test N/A N/A Arterial Blood Gas Puncture Site Right Brachial Right Brachial Arterial Blood Carboxyhemoglobin 0.3 0.3 Arterial Blood Date Drawn 04/13/2016 9:35:47 PM 04/13/2016 11:11:32 PM Arterial Blood Methemoglobin 0 0.1 Arterial Blood pCO2 (Temp correct) 36.1 32.7 L Arterial Blood pH (Temp corrected) 7.287 *L 7.317 L Arterial Blood pO2 (Temp corrected) 45.0 *L 76.8 L Blood Gas A-a O2 Differential 275.1 H 610.6 H Blood Gas Actual Respiration Rate 24 16 Blood Gas Critical Value Read Back Lynne SIMS RN, M. RN Blood Gas Inspiratory Pressure 22.0 29.0 Blood Gas Low PEEP Setting 5.0 5.0 Blood Gas Modality VENT - AC VENT - AC Blood Gas Notified Time 04/13/2016 9:41:55 PM 04/13/2016 11:26:54 PM Blood Gas Notified Whom MG RTR Blood Gas Respiration Rate 16.0 16.0 Blood Gas Specimen Source Blood arterial Blood arterial Blood Gas Temperature 33.4 34.1 Blood Gas Tidal Volume 500.0 550.0 FiO2 50.0 100.0 Oxyhemoglobin Percent 85.9 L 95.9 Total Hemoglobin 14.7 14.8 Bedside Glucose 113 106 Test 04/14/16 00:22 04/14/16 02:17 04/14/16 03:13 04/14/16 04:35 Bedside Glucose 85 96 98 Alanine Aminotransferase (ALT/SGPT) 123 H Albumin 3.2 L Albumin/Globulin Ratio 1.03 Alkaline Phosphatase 73 Anion Gap 13 Aspartate Amino Transf (AST/SGOT) 136 H Band Neutrophils % 12.0 H Basophils # Basophils % Blood Urea Nitrogen 7 Calcium Level 7.5 L Carbon Dioxide Level 23 Chloride Level 107 Creatinine 0.42 L Differential Comment MANUAL DIFF Direct Bilirubin 0.00 Eosinophils # 0.3 Eosinophils % 1.0 Globulin 3.10 Glucose Level 100 Hematocrit 41.6 Hemoglobin 13.7 INR International Normalized Ratio 1.16 Indirect Bilirubin 0.3 Lactic Acid Level 2.5 H Lymphocytes # 1.6 Lymphocytes % 6.0 L Mean Corpuscular Hemoglobin 29.4 Mean Corpuscular Hemoglobin Concent 32.9 Mean Corpuscular Volume 89.5 Mean Platelet Volume 10.0 Monocytes # 0.5 Monocytes % 2.0 Neutrophils # 20.9 H Neutrophils % 79.0 H Nucleated Red Blood Cells # Nucleated Red Blood Cells % Platelet Count 321 Platelet Estimate PLT APPEAR ADEQUATE Potassium Level 4.1 Prothrombin Time 14.9 H Prothrombin Time Ratio 1.2 Red Blood Count 4.65 Red Cell Distribution Width 13.9 Sodium Level 139 Total Bilirubin 0.3 Total Protein 6.3 Troponin I 2.240 *H White Blood Count 26.5 #H Test 04/14/16 05:03 04/14/16 05:40 04/14/16 06:20 04/14/16 07:25 Bedside Glucose 88 85 86 Arterial Blood HCO3 18.0 L Arterial Blood Base Excess -8.9 L Arterial Blood Oxygen Saturation 96.1 [place]ton Test ACCEPTAB Arterial Blood Gas Puncture Site Right Radial Arterial Blood Carboxyhemoglobin 0.3 Arterial Blood Date Drawn 04/14/2016 7:20:00 AM Arterial Blood Methemoglobin 0.1 Arterial Blood pCO2 (Temp correct) 34.9 L Arterial Blood pH (Temp corrected) 7.307 L Arterial Blood pO2 (Temp corrected) 69.2 L Blood Gas A-a O2 Differential 619.3 H Blood Gas Actual Respiration Rate 19 Blood Gas Critical Value Read Back E DASHOLA RN Blood Gas Low PEEP Setting 5.0 Blood Gas Modality VENT - AC Blood Gas Notified Time 04/14/2016 7:39:00 AM Blood Gas Notified Whom JLD Blood Gas Respiration Rate 16.0 Blood Gas Specimen Source Blood arterial Blood Gas Temperature 32.5 Blood Gas Tidal Volume 550.0 FiO2 100.0 Oxyhemoglobin Percent 95.7 Total Hemoglobin 13.9 Test 04/14/16 09:26 04/14/16 11:46 04/14/16 12:04 04/14/16 12:21 Bedside Glucose 86 57 L 120 76 Test 04/14/16 12:45 Bedside Glucose 83 Medications Medications Current Medications Ondansetron HCl (Zofran Inj) 4 mg Q6H PRN IV NAUSEA AND/OR VOMITING; Start at 06:30 Acetaminophen (Tylenol Tab) 650 mg Q6H PRN PO PAIN LEVEL 1-3 OR FEVER Last administered on 04/14/16 05:56; Admin Dose 650 MG; Start 04/13/16 at 06:30 Acetaminophen (Tylenol Supp) 650 mg Q4H PRN ID PAIN LEVEL 1-3 OR FEVER; Start 04/13/16 at 06:30 Pantoprazole (Protonix Iv) 40 mg DAILY@06 IV Last administered on 04/14/16 05: 47; Admin Dose 40 MG; Start 04/14/16 at 06:00 Heparin Sodium (Porcine) (Heparin (5000 Units/0.5 ml)) 5,000 unit Q12 SC Last administered on 04/14/16 09:30; Admin Dose 5,000 UNIT; Start 04/13/16 at 09:00 Diagnostic Test (Pha) (Accucheck) 1 ea Q1H XX Last administered on 04/14/16 11 :35; Admin Dose 1 EA; Start 04/13/16 at 06:30 Dextrose (D50w Syringe) 25 ml Q15M PRN IV Till BS 80 mg/dL or above x2 Last administered on 04/14/16 11:50; Admin Dose 25 ML; Start 04/13/16 at 06:30 Dextrose 50 ml 50 ml Q15M PRN IV Till BS 80 mg/dL or above x2; Start 04/13/16 at 06:30 Sodium Chloride (NS) 1,000 ml @ 100 mls/hr Q10H IV Last administered on 08:00; Admin Dose 100 MLS/HR; Start 04/13/16 at 06:20 Acetaminophen (Tylenol Supp) 650 mg Q4H PRN ID TEMP > 37C; Start 04/13/16 at 06 :30 Acetaminophen (Tylenol Liquid) 650 mg Q4H PRN PO TEMP > 37C; Start 04/13/16 at 06:30 Acetaminophen (Tylenol Supp) 500 mg Q6H ID ; Start 04/14/16 at 06:30 Meperidine HCl (Demerol) 12.5 mg Q4H PRN IV POST OPERATIVE SHIVERING; Start at 06:30 Meperidine HCl (Demerol) 25 mg Q4H PRN IV POST OPERATIVE SHIVERING; Start 04/13 at 06:30 Eye Lubricant (Akwa Oint) 1 applic Q6 BOTH EYES Last administered on 04/14/16 12:09; Admin Dose 1 APPLIC; Start 04/13/16 at 12:00 Eye Lubricant 2 drop 2 drop Q6 BOTH EYES Last administered on 04/14/16 12:09; Admin Dose 2 DROP; Start 04/13/16 at 12:00 Piperacillin Sod/ Tazobactam Sod 100 ml @ 25 mls/hr TID@02,10,18 IVPB Last administered on 04/14/16 09:31; Admin Dose 25 MLS/HR; Start 04/13/16 at 18:00 Fentanyl 1000 mcg/ Dextrose 100 ml @ 2.5 mls/hr TITRATE IV Last administered on 04/14/16 12:54; Admin Dose 10 MLS/HR; Start 04/13/16 at 15:30 Norepinephrine (Levophed) 250 ml @ 1.875 mls/ hr TITRATE IV Last administered on 04/14/16 13:23; Admin Dose 26.25 MLS/HR; Start 04/13/16 at 15:30 Morphine Sulfate 2 mg 2 mg Q3H PRN IV PAIN; Start 04/13/16 at 15:25 Propofol (Diprivan) 100 ml @ 2.55 mls/hr Q12H IV Last administered on 11:43; Admin Dose 10.2 MLS/HR; Start 04/13/16 at 17:30 Giorgio Knight DO Apr 14, 2016 13:40
[2016-04-14] MEDS: ASPIRIN 81 MG TAB NGT SCH (14:33)
[2016-04-14] MEDS: DEXTROSE 5%-0.45% NACL 1,000 ML IV SCH (15:28)
[2016-04-14] MEDS: ATORVASTATIN 20 MG TAB PO SCH (20:43)
--- NOTE | 2016-04-14 21:13 | RADRPT ---
Vent Rate: 76 bpm RR Interval: 0 msec [place] Interval: 190 msec QRS Duration: 90 msec QT Interval: 456 msec QTC Interval: 513 msec P-R-T Dwight: 63 - 88 - 81 degrees Age and gender specific ECG analysis Normal sinus rhythm ST elevation, consider inferior injury or acute infarct Prolonged QT Abnormal ECG Electronically Signed By: Giorgio Knight [id number]
[2016-04-14] MEDS: morphine 2 MG INJ IV PRN (22:17)
[2016-04-15] VITALS (98 sets, daily range): BP systolic 89–134; BP diastolic 40–87; PULSE 94–153; RESP 12–23
[2016-04-15] MEDS: morphine 2 MG INJ IV PRN ×3 (00:03→08:30)
[2016-04-15] MEDS: ACETAMINOPHEN 650 MG SUPP PR SCH ×5 (00:21→23:41)
[2016-04-15] MEDS: DEXTROSE 5%-0.45% NACL 1,000 ML IV SCH ×3 (00:24→18:03)
[2016-04-15] MEDS: ACCUCHECK XX SCH ×12 (00:30→12:22)
[2016-04-15] MEDS: PROPOFOL 100 ML IV SCH ×6 (00:34→21:03)
[2016-04-15] MEDS: PIPER-TAZO 3.375 GM IV (PMX) 100 ML IVPB SCH ×3 (02:31→18:02)
[2016-04-15] MEDS: DEXTROSE 50% 50 ML SYRINGE IV PRN ×2 (02:41→05:41)
[2016-04-15 05:01] LABS: BASOPHILS % 0.1 % (0.0-2.0); EOSINOPHILS # 0.1 10^3/ul (0.0-0.5); EOSINOPHILS % 0.7 % (0.0-7.0); HEMATOCRIT 32.2 % (37.0-47.0); HEMOGLOBIN 10.8 g/dl (12.0-16.0); LYMPHOCYTES # 2.4 10^3/ul (0.8-2.9); LYMPHOCYTES % 13.4 % (15.0-51.0); MEAN CORPUSCULAR HEMOGLOBIN 29.5 pg (29.0-33.0); MEAN CORPUSCULAR HGB CONC 33.5 g/dl (32.0-37.0); MEAN CORPUSCULAR VOLUME 87.9 fl (82.0-101.0); MEAN PLATELET VOLUME 9.7 fl (7.4-10.4); MONOCYTE # 0.2 10^3/ul (0.3-0.9); MONOCYTES % 1.3 % (0.0-11.0); NEUTROPHIL # 15.4 10^3/ul (1.6-7.5); NEUTROPHILS % 84.5 % (39.0-77.0); PLATELET COUNT 213 10^3/UL (140-440); RED BLOOD COUNT 3.67 10^6/ul (4.20-5.40); RED CELL DISTRIBUTION WIDTH 13.3 % (11.5-14.5); UNCORRECTED WBC 18.2 10^3/ul (4.8-10.8); WHITE BLOOD COUNT 18.2 10^3/ul (4.8-10.8)
[2016-04-15 05:10] LABS: CONDITION 1; LH ANALYZER COMMENTS 1; SUSPECT 1
[2016-04-15 05:37] LABS: ALBUMIN 2.5 g/dl (3.3-4.9)
[2016-04-15 05:38] LABS: POTASSIUM 3.1 mmol/L (3.5-5.1)
[2016-04-15 05:40] LABS: BILIRUBIN,INDIRECT 0.3 mg/dl (0-1.1); BILIRUBIN,TOTAL 0.3 mg/dl (0.2-1.3); CREATININE 0.69 mg/dl (0.44-1.00)
[2016-04-15 05:41] LABS: ALBUMIN/GLOBULIN RATIO 0.89; CALCIUM 7.2 mg/dl (8.4-10.2); TOTAL PROTEIN 5.3 g/dl (6.1-8.1)
[2016-04-15] MEDS: PANTOPRAZOLE 40 MG INJ IV SCH (05:41)
[2016-04-15] MEDS ORDERED: POTASSIUM CHLORIDE 20 MEQ in SOD CHLORIDE 0.9% 100 ML IVPB ONE (07:00)
--- NOTE | 2016-04-15 07:42 | RADRPT ---
PROCEDURE: XR Chest. CLINICAL INDICATION: chest pain TECHNIQUE: Single AP view of the chest were obtained COMPARISON: 04/14/2016 FINDINGS: The heart and mediastinum are within normal limits. The pulmonary vasculature are unremarkable. The aorta is unremarkable. Prominent bilateral diffuse opacities appear overall stable from prior exam with no visible effusion. There is no acute osseous abnormality. Endotracheal tube tip terminates in the trachea above the bro. There is a gastric catheter which extends to below the GE junction. A central line catheter is seen with terminates at the SVC. IMPRESSION: Stable appearance of diffuse bilateral opacities. Unchanged support lines and tubes appear appropriately positioned. RPTAT: AA .Nestor Child MD, Date Time Electronically viewed and signed by .Nestor Child MD, on 04/15/2016 07:41 .Dung/
[2016-04-15] MEDS: FENTAnyl 1,000 MCG in DEXTROSE 5% 80 ML IV SCH ×2 (08:04→18:04)
[2016-04-15] MEDS: ASPIRIN 81 MG TAB NGT SCH (08:27)
[2016-04-15] MEDS: HEPARIN 5,000 UNIT/0.5 ML SYG SC SCH ×2 (08:29→21:05)
--- NOTE | 2016-04-15 10:33 | CONS ---
Date/Time of Note Date/Time of Note DATE: 04/15/16 TIME: 10:32 Consult Date/Type/Reason Admit Date/Time Apr 13, 2016 at 06:25 Type of Consultation: pulmonary Subjective Off hypothermia protocol continue sedation. Significant agitation off sedation this morning. Not following commands however. No vasopressor requirement Remains tachycardic heart rate 150s sinus tachycardia Objective Vital Signs Date Time Temp Pulse Resp B/P Pulse Ox O2 Delivery O2 Flow Rate FiO2 04/15/16 10:15 151 16 104/55 100 04/15/16 10:00 Mechanical Ventilator 04/15/16 08:00 40 04/15/16 08:00 99.2 04/13/16 02:25 15.0 Intake and Output 04/14/16 04/14/16 04/15/16 15:00 23:00 07:00 Intake Total 1168.57 ml 1312.73 ml 1351.10 ml Output Total 1355 ml 1306 ml 1463 ml Balance -186.43 ml 6.73 ml -111.90 ml PHYSICAL EXAMINATION: GENERAL: Well-nourished, well-developed lady, intubated on mechanical ventilation, appears comfortable at rest, no acute distress. VITAL SIGNS: As above NECK: Supple. No JVD or lymphadenopathy. CARDIAC: S1, S2, no added sounds or murmurs. CHEST: Diminished air entry bilaterally. ABDOMEN: Soft, nontender. No guarding or rebound. EXTREMITIES: No cyanosis, clubbing, edema. NEUROLOGIC: Unable to assess. Results/Medications Result Diagram: 04/15/16 0425 04/15/16 0425 Results 24 hrs Laboratory Tests Test 04/14/16 11:46 04/14/16 12:04 04/14/16 12:21 04/14/16 12:45 Bedside Glucose 57 L 120 76 83 Test 04/14/16 14:16 04/14/16 15:16 04/14/16 15:30 04/14/16 16:01 Bedside Glucose 78 66 L 81 77 Test 04/14/16 16:46 04/14/16 17:31 04/14/16 18:34 04/14/16 20:39 Bedside Glucose 87 80 90 82 Test 04/14/16 21:48 04/14/16 22:50 04/14/16 23:59 04/15/16 00:31 Bedside Glucose 79 80 75 89 Test 04/15/16 02:34 04/15/16 03:03 04/15/16 03:37 04/15/16 04:25 Bedside Glucose 69 L 91 81 84 Alanine Aminotransferase (ALT/SGPT) 75 H Albumin 2.5 L Albumin/Globulin Ratio 0.89 Alkaline Phosphatase 77 Anion Gap 12 Aspartate Amino Transf (AST/SGOT) 77 H Basophils # 0.0 Basophils % 0.1 Blood Urea Nitrogen 3 L Calcium Level 7.2 L Carbon Dioxide Level 26 Chloride Level 107 Creatinine 0.69 Direct Bilirubin 0.00 Eosinophils # 0.1 Eosinophils % 0.7 Globulin 2.80 Glucose Level 82 Hematocrit 32.2 #L Hemoglobin 10.8 #L Indirect Bilirubin 0.3 Lipase 27 Lymphocytes # 2.4 Lymphocytes % 13.4 L Mean Corpuscular Hemoglobin 29.5 Mean Corpuscular Hemoglobin Concent 33.5 Mean Corpuscular Volume 87.9 Mean Platelet Volume 9.7 Monocytes # 0.2 L Monocytes % 1.3 Neutrophils # 15.4 H Neutrophils % 84.5 H Nucleated Red Blood Cells # 0.0 Nucleated Red Blood Cells % 0.0 Platelet Count 213 # Potassium Level 3.1 L Red Blood Count 3.67 #L Red Cell Distribution Width 13.3 Sodium Level 142 Total Bilirubin 0.3 Total Protein 5.3 #L White Blood Count 18.2 #H Test 04/15/16 05:37 04/15/16 06:22 04/15/16 07:00 04/15/16 08:25 Bedside Glucose 66 L 115 77 Arterial Blood HCO3 18.0 L Arterial Blood Base Excess -8.9 L Arterial Blood Oxygen Saturation 96.1 [place] Test ACCEPTAB Arterial Blood Gas Puncture Site Right Radial Arterial Blood Carboxyhemoglobin 0.3 Arterial Blood Date Drawn 04/14/2016 7:20:52 AM Arterial Blood Methemoglobin 0.1 Arterial Blood pCO2 (Temp correct) 34.9 L Arterial Blood pH (Temp corrected) 7.307 L Arterial Blood pO2 (Temp corrected) 69.2 L Blood Gas A-a O2 Differential 619.3 H Blood Gas Actual Respiration Rate 19 Blood Gas Critical Value Read Back Micky ALONSO RN Blood Gas Low PEEP Setting 5.0 Blood Gas Modality VENT - AC Blood Gas Notified Time 04/14/2016 7:39:45 AM Blood Gas Notified Whom JLD Blood Gas Respiration Rate 16.0 Blood Gas Specimen Source Blood arterial Blood Gas Temperature 32.5 Blood Gas Tidal Volume 550.0 FiO2 100.0 Oxyhemoglobin Percent 95.7 Total Hemoglobin 13.9 Medications Current Medications Ondansetron HCl (Zofran Inj) 4 mg Q6H PRN IV NAUSEA AND/OR VOMITING; Start at 06:30 Acetaminophen (Tylenol Tab) 650 mg Q6H PRN PO PAIN LEVEL 1-3 OR FEVER Last administered on 04/14/16 05:56; Admin Dose 650 MG; Start 04/13/16 at 06:30 Acetaminophen (Tylenol Supp) 650 mg Q4H PRN [place] PAIN LEVEL 1-3 OR FEVER; Start 04/13/16 at 06:30 Pantoprazole (Protonix Iv) 40 mg DAILY@06 IV Last administered on 04/15/16 05: 41; Admin Dose 40 MG; Start 04/14/16 at 06:00 Heparin Sodium (Porcine) (Heparin (5000 Units/0.5 ml)) 5,000 unit Q12 SC Last administered on 04/15/16 08:29; Admin Dose 5,000 UNIT; Start 04/13/16 at 09:00 Diagnostic Test (Pha) (Accucheck) 1 ea Q1H XX Last administered on 04/15/16 06 :22; Admin Dose 1 EA; Start 04/13/16 at 06:30 Dextrose (D50w Syringe) 25 ml Q15M PRN IV Till BS 80 mg/dL or above x2 Last administered on 04/15/16 05:41; Admin Dose 25 ML; Start 04/13/16 at 06:30 Dextrose (D50w Syringe) 50 ml Q15M PRN IV Till BS 80 mg/dL or above x2; Start 04/13/16 at 06:30 Acetaminophen (Tylenol Supp) 650 mg Q4H PRN IN TEMP > 37C; Start 04/13/16 at 06 :30 Acetaminophen (Tylenol Liquid) 650 mg Q4H PRN PO TEMP > 37C; Start 04/13/16 at 06:30 Acetaminophen (Tylenol Supp) 500 mg Q6H [place] Last administered on 04/15/16 00:21 ; Admin Dose 500 MG; Start 04/14/16 at 06:30 Meperidine HCl (Demerol) 12.5 mg Q4H PRN IV POST OPERATIVE SHIVERING; Start at 06:30 Meperidine HCl 25 mg 25 mg Q4H PRN IV POST OPERATIVE SHIVERING; Start 04/13/16 at 06:30 Piperacillin Sod/ Tazobactam Sod 100 ml @ 25 mls/hr TID@02,10,18 IVPB Last administered on 04/15/16 02:31; Admin Dose 25 MLS/HR; Start 04/13/16 at 18:00 Fentanyl/Dextrose (D5W) 100 ml @ 2.5 mls/hr TITRATE IV Last administered on 08:04; Admin Dose 10 MLS/HR; Start 04/13/16 at 15:30 Morphine Sulfate 2 mg 2 mg Q3H PRN IV PAIN Last administered on 04/15/16 08:30 ; Admin Dose 2 MG; Start 04/13/16 at 15:25 Propofol (Diprivan) 100 ml @ 2.55 mls/hr Q12H IV Last administered on 07:46; Admin Dose 25.5 MLS/HR; Start 04/13/16 at 17:30 Aspirin (Aspirin) 81 mg DAILY NGT Last administered on 04/15/16 08:27; Admin Dose 81 MG; Start 04/14/16 at 14:00 Atorvastatin Calcium 20 mg 20 mg HS PO Last administered on 04/14/16 20:43; Admin Dose 20 MG; Start 04/14/16 at 21:00 Dextrose/Sodium Chloride 1,000 ml @ 100 mls/hr Q10H IV Last administered on 00:24; Admin Dose 100 MLS/HR; Start 04/14/16 at 15:30 Norepinephrine/ Dextrose (Levophed/D5W) 500 ml @ 0 mls/hr TITRATE IV Last administered on 04/15/16 03:52; Admin Dose 15 MLS/HR; Start 04/14/16 at 19:00 Assessment/Plan Chief Complaint/Hosp Course IMPRESSION AND PLAN: 1. Cardiopulmonary arrest. Status post hypothermia protocol 2. Ventricular fibrillation. No sinus tachycardia 3. Positive methamphetamines. 4. Probable aspiration pneumonia. Evidence of pulmonary edema on chest x-ray. Hypoxemic respiratory failure. Improved oxygenation 5. 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 The patient will require: 1. Continued mechanical ventilation. CPAP weaning trial once neurological status improves 2. Broad-spectrum antibiotics. 3. Cardiology evaluation and recommendations 4. Glycemic management. 5. DVT and GI prophylaxis. 6. Neurology evaluation and recommendations Problems: SHELLEY AVILA MD, [facility] Apr 15, 2016 10:33
[2016-04-15] MEDS ORDERED: POTASSIUM CHLORIDE 20 MEQ POWDER FOR ORAL SOLN NGT ONE (13:00)
--- NOTE | 2016-04-15 14:03 | RADRPT ---
Vent Rate: 150 bpm RR Interval: 0 msec MS Interval: 120 msec QRS Duration: 70 msec QT Interval: 250 msec QTC Interval: 395 msec P-R-T [place]: 61 - 83 - 57 degrees Sinus tachycardia Nonspecific ST and T wave abnormality Abnormal ECG Electronically Signed By: Giorgio Knight [id number]
[2016-04-15 15:12] LABS: AADO2 Arterial 61.6 mmHg (7.0-24.0); Arterial Base Excess 0 mmol/L (-3.0-3); Arterial COHb 0.2 % (0.0-3.0); Arterial Fraction of Oxyhgb 97.6 % (93.0-99.0); Arterial HCO3 22.7 mmol/L (22.0-26.0); Arterial MetHb 0.3 % (0.0-1.5); Arterial Total Hemglobin 11.1 g/dl (12.0-18.0)
--- NOTE | 2016-04-15 15:18 | PN ---
Date/Time of Note Date/Time of Note DATE: 04/15/16 TIME: 15:14 Assessment/Plan VTE Prophylaxis VTE Prophylaxis Intervention: heparin Lines/Catheters IV Catheter Type (from Nrs): Central Line Central line still needed: Yes Urinary Cath still in place: Yes Reason Cath still needed: urinary retention Assessment/Plan Assessment/Plan 1. S/p Cardiopulmonary arrest 2. Ventricular fibrillation, on amiodarone drip, follow up with cardiology 3. Right upper lobe pneumonia, likely aspiration, zosyn 4. Ventilator-dependent respiratory failure, follow up with pulmonology 5. Severe lactic acidosis from cardiac arrest and sepsis 6. Mildly elevated troponin, follow up with cardiology 7. Acute pancreatitis from cardiopulmonary arrest/ischemia, and ETOH, follow up with amylase/lipase 8. Elevated transaminases, shock related, ETOH, follow up with LFTs 9. Substance abuse 10. Sinus tachycardia, metoprolol 11. Hypokalemia, KCL 12. GI/DVT prophylaxis Subjective 24 Hr Interval Summary Free Text/Dictation sedated on vent Exam/Review of Systems Vital Signs Vitals Vital Signs Date Time Temp Pulse Resp B/P Pulse Ox O2 Delivery O2 Flow Rate FiO2 04/15/16 14:21 151 16 100 30 04/15/16 13:30 110/59 04/15/16 12:00 100.2 04/15/16 10:00 Mechanical Ventilator 04/13/16 02:25 15.0 Intake and Output 04/14/16 04/14/16 04/15/16 15:00 23:00 07:00 Intake Total 1168.57 ml 1312.73 ml 1351.10 ml Output Total 1355 ml 1306 ml 1463 ml Balance -186.43 ml 6.73 ml -111.90 ml Exam Constitutional: other (on vent), well developed Head: atraumatic, normocephalic Eyes: EOMI, nl conjunctiva, nl lids, nl sclera ENMT: mucosa pink and moist, nl external ears & nose, nl lips & teeth, nl nasal mucosa & septum Neck: non-tender, supple Respiratory: clear to auscultation, normal air movement, No congested cough, No crackles/rales, No diminished breath sounds, No intercostal retraction, No labored breathing, No respirations, No tactile fremitus, No wheezing Cardiovascular: nl pulses, regular rate and rhythm, No S3, No S4, No bruits, No diastolic murmur, No edema, No gallop, No irregular rhythm, No jugular venous distention (JVD), No murmurs/extra sounds, No rub, No systolic murmur Gastrointestinal: nl liver, spleen, soft, No ascites, No bowel sounds, No distended, No firm, No hepatomegaly, No mass , No rebound or guarding, No splenomegaly, No surgical scars, No tender Musculoskeletal: nl extremities to inspection Extremities: normal pulses, No clubbing, No cyanosis, No edema, No palpable cord, No pitting pedal edema Neurological: other (sedated), unresponsive Skin: nl turgor, rash or lesions Lymph: nl lymph nodes Results Result Diagram: 04/15/1642404/15/16424 Results 24 hrs Laboratory Tests Test 04/14/16 15:16 04/14/16 15:30 04/14/16 16:01 04/14/16 16:46 Bedside Glucose 66 L 81 77 87 Test 04/14/16 17:31 04/14/16 18:34 04/14/16 20:39 04/14/16 21:48 Bedside Glucose 80 90 82 79 Test 04/14/16 22:50 04/14/16 23:59 04/15/16 00:31 04/15/16 02:34 Bedside Glucose 80 75 89 69 L Test 04/15/16 03:03 04/15/16 03:37 04/15/16 04:25 04/15/16 05:37 Bedside Glucose 91 81 84 66 L Alanine Aminotransferase (ALT/SGPT) 75 H Albumin 2.5 L Albumin/Globulin Ratio 0.89 Alkaline Phosphatase 77 Anion Gap 12 Aspartate Amino Transf (AST/SGOT) 77 H Basophils # 0.0 Basophils % 0.1 Blood Urea Nitrogen 3 L Calcium Level 7.2 L Carbon Dioxide Level 26 Chloride Level 107 Creatinine 0.69 Direct Bilirubin 0.00 Eosinophils # 0.1 Eosinophils % 0.7 Globulin 2.80 Glucose Level 82 Hematocrit 32.2 #L Hemoglobin 10.8 #L Indirect Bilirubin 0.3 Lipase 27 Lymphocytes # 2.4 Lymphocytes % 13.4 L Mean Corpuscular Hemoglobin 29.5 Mean Corpuscular Hemoglobin Concent 33.5 Mean Corpuscular Volume 87.9 Mean Platelet Volume 9.7 Monocytes # 0.2 L Monocytes % 1.3 Neutrophils # 15.4 H Neutrophils % 84.5 H Nucleated Red Blood Cells # 0.0 Nucleated Red Blood Cells % 0.0 Platelet Count 213 # Potassium Level 3.1 L Red Blood Count 3.67 #L Red Cell Distribution Width 13.3 Sodium Level 142 Total Bilirubin 0.3 Total Protein 5.3 #L White Blood Count 18.2 #H Test 04/15/16 06:22 04/15/16 07:00 04/15/16 08:25 04/15/16 10:50 Bedside Glucose 115 77 87 Arterial Blood HCO3 22.7 Arterial Blood Base Excess 0 Arterial Blood Oxygen Saturation 98.1 H [place] Test ACCEPTAB Arterial Blood Gas Puncture Site Right Radial Arterial Blood Carboxyhemoglobin 0.2 Arterial Blood Date Drawn 04/15/2016 2:50:17 PM Arterial Blood Methemoglobin 0.3 Arterial Blood pCO2 (Temp correct) 30.4 L Arterial Blood pH (Temp corrected) 7.491 H Arterial Blood pO2 (Temp corrected) 116.6 H Blood Gas A-a O2 Differential 61.6 H Blood Gas Actual Respiration Rate 16 Blood Gas Critical Value Read Back Micky ALONSO RN Blood Gas Low PEEP Setting 5.0 Blood Gas Modality VENT - AC Blood Gas Notified Time 04/15/2016 3:11:57 PM Blood Gas Notified Whom JLD Blood Gas Respiration Rate 16.0 Blood Gas Specimen Source Blood arterial Blood Gas Temperature 37.0 Blood Gas Tidal Volume 550.0 FiO2 30.0 Oxyhemoglobin Percent 97.6 Total Hemoglobin 11.1 L Test 04/15/16 12:22 Bedside Glucose 78 Medications Medications Current Medications Ondansetron HCl (Zofran Inj) 4 mg Q6H PRN IV NAUSEA AND/OR VOMITING; Start at 06:30 Acetaminophen (Tylenol Tab) 650 mg Q6H PRN PO PAIN LEVEL 1-3 OR FEVER Last administered on 04/14/16 05:56; Admin Dose 650 MG; Start 04/13/16 at 06:30 Acetaminophen (Tylenol Supp) 650 mg Q4H PRN [place] PAIN LEVEL 1-3 OR FEVER; Start 04/13/16 at 06:30 Pantoprazole (Protonix Iv) 40 mg DAILY@06 IV Last administered on 04/15/16 05: 41; Admin Dose 40 MG; Start 04/14/16 at 06:00 Heparin Sodium (Porcine) (Heparin (5000 Units/0.5 ml)) 5,000 unit Q12 SC Last administered on 04/15/16 08:29; Admin Dose 5,000 UNIT; Start 04/13/16 at 09:00 Diagnostic Test (Pha) (Accucheck) 1 ea Q1H XX Last administered on 04/15/16 12 :22; Admin Dose 1 EA; Start 04/13/16 at 06:30 Dextrose (D50w Syringe) 25 ml Q15M PRN IV Till BS 80 mg/dL or above x2 Last administered on 04/15/16 05:41; Admin Dose 25 ML; Start 04/13/16 at 06:30 Dextrose (D50w Syringe) 50 ml Q15M PRN IV Till BS 80 mg/dL or above x2; Start 04/13/16 at 06:30 Acetaminophen (Tylenol Supp) 650 mg Q4H PRN [place] TEMP > 37C; Start 04/13/16 at 06 :30 Acetaminophen (Tylenol Liquid) 650 mg Q4H PRN PO TEMP > 37C; Start 04/13/16 at 06:30 Acetaminophen (Tylenol Supp) 500 mg Q6H [place] Last administered on 04/15/16 12:25 ; Admin Dose 500 MG; Start 04/14/16 at 06:30 Meperidine HCl (Demerol) 12.5 mg Q4H PRN IV POST OPERATIVE SHIVERING; Start at 06:30 Meperidine HCl 25 mg 25 mg Q4H PRN IV POST OPERATIVE SHIVERING; Start 04/13/16 at 06:30 Piperacillin Sod/ Tazobactam Sod 100 ml @ 25 mls/hr TID@02,10,18 IVPB Last administered on 04/15/16 10:52; Admin Dose 25 MLS/HR; Start 04/13/16 at 18:00 Fentanyl/Dextrose (D5W) 100 ml @ 2.5 mls/hr TITRATE IV Last administered on 08:04; Admin Dose 10 MLS/HR; Start 04/13/16 at 15:30 Morphine Sulfate 2 mg 2 mg Q3H PRN IV PAIN Last administered on 04/15/16 08:30 ; Admin Dose 2 MG; Start 04/13/16 at 15:25 Propofol (Diprivan) 100 ml @ 2.55 mls/hr Q12H IV Last administered on 10:55; Admin Dose 25.5 MLS/HR; Start 04/13/16 at 17:30 Aspirin (Aspirin) 81 mg DAILY NGT Last administered on 04/15/16 08:27; Admin Dose 81 MG; Start 04/14/16 at 14:00 Atorvastatin Calcium 20 mg 20 mg HS PO Last administered on 04/14/16 20:43; Admin Dose 20 MG; Start 04/14/16 at 21:00 Dextrose/Sodium Chloride 1,000 ml @ 100 mls/hr Q10H IV Last administered on 10:52; Admin Dose 100 MLS/HR; Start 04/14/16 at 15:30 Norepinephrine/ Dextrose (Levophed/D5W) 500 ml @ 0 mls/hr TITRATE IV Last administered on 04/15/16 03:52; Admin Dose 15 MLS/HR; Start 04/14/16 at 19:00 COLLIN MANNING MD Apr 15, 2016 15:18
--- NOTE | 2016-04-15 15:38 | CONS ---
Date/Time of Note Date/Time of Note DATE: 04/15/16 TIME: 15:35 Assessment/Plan Assessment/Plan Additional Assessment/Plan Cardiac arrest Ventricular fibrillation Severe cardiomyopathy with ejection fraction 25% SIRS Sinus tachycardia Methamphetamine use Elevated troponins -Patient with sinus tachycardia, likely secondary to multiple etiologies including elevated temperature, sepsis, withdrawal from drug abuse. Agree with stopping IV pressor given improvement in blood pressure. Treat the underlying cause. Supplement potassium to maintain above 4.0 and magnesium above 2.0. Consultation Date/Type/Reason Admit Date/Time Apr 13, 2016 at 06:25 Type of Consultation: cv 24 HR Interval Summary Free Text/Dictation Patient with increased tachycardia noted overnight and this morning. Low-grade elevated temperature Exam/Review of Systems Vital Signs Vitals Vital Signs Date Time Temp Pulse Resp B/P Pulse Ox O2 Delivery O2 Flow Rate FiO2 04/15/16 14:21 151 16 100 30 04/15/16 13:30 110/59 04/15/16 12:00 100.2 04/15/16 10:00 Mechanical Ventilator 04/13/16 02:25 15.0 Intake and Output 04/14/16 04/14/16 04/15/16 15:00 23:00 07:00 Intake Total 1168.57 ml 1312.73 ml 1351.10 ml Output Total 1355 ml 1306 ml 1463 ml Balance -186.43 ml 6.73 ml -111.90 ml Exam Sedated and intubated Head: normocephalic ENMT: intubated Respiratory: other (course breath sounds bilaterally, no wheezing) Cardiovascular: other (S1 and S2 heard), regular rate and rhythm Gastrointestinal: bowel sounds, non-tender, soft Extremities: other (no edema) Results Result Diagram: 04/15/16 0425 04/15/16 0425 Results 24 hrs Laboratory Tests Test 04/14/16 16:01 04/14/16 16:46 04/14/16 17:31 04/14/16 18:34 Bedside Glucose 77 87 80 90 Test 04/14/16 20:39 04/14/16 21:48 04/14/16 22:50 04/14/16 23:59 Bedside Glucose 82 79 80 75 Test 04/15/16 00:31 04/15/16 02:34 04/15/16 03:03 04/15/16 03:37 Bedside Glucose 89 69 L 91 81 Test 04/15/16 04:25 04/15/16 05:37 04/15/16 06:22 04/15/16 07:00 Alanine Aminotransferase (ALT/SGPT) 75 H Albumin 2.5 L Albumin/Globulin Ratio 0.89 Alkaline Phosphatase 77 Anion Gap 12 Aspartate Amino Transf (AST/SGOT) 77 H Basophils # 0.0 Basophils % 0.1 Bedside Glucose 84 66 L 115 Blood Urea Nitrogen 3 L Calcium Level 7.2 L Carbon Dioxide Level 26 Chloride Level 107 Creatinine 0.69 Direct Bilirubin 0.00 Eosinophils # 0.1 Eosinophils % 0.7 Globulin 2.80 Glucose Level 82 Hematocrit 32.2 #L Hemoglobin 10.8 #L Indirect Bilirubin 0.3 Lipase 27 Lymphocytes # 2.4 Lymphocytes % 13.4 L Mean Corpuscular Hemoglobin 29.5 Mean Corpuscular Hemoglobin Concent 33.5 Mean Corpuscular Volume 87.9 Mean Platelet Volume 9.7 Monocytes # 0.2 L Monocytes % 1.3 Neutrophils # 15.4 H Neutrophils % 84.5 H Nucleated Red Blood Cells # 0.0 Nucleated Red Blood Cells % 0.0 Platelet Count 213 # Potassium Level 3.1 L Red Blood Count 3.67 #L Red Cell Distribution Width 13.3 Sodium Level 142 Total Bilirubin 0.3 Total Protein 5.3 #L White Blood Count 18.2 #H Arterial Blood HCO3 22.7 Arterial Blood Base Excess 0 Arterial Blood Oxygen Saturation 98.1 H [place] Test ACCEPTAB Arterial Blood Gas Puncture Site Right Radial Arterial Blood Carboxyhemoglobin 0.2 Arterial Blood Date Drawn 04/15/2016 2:50:00 PM Arterial Blood Methemoglobin 0.3 Arterial Blood pCO2 (Temp correct) 30.4 L Arterial Blood pH (Temp corrected) 7.491 H Arterial Blood pO2 (Temp corrected) 116.6 H Blood Gas A-a O2 Differential 61.6 H Blood Gas Actual Respiration Rate 16 Blood Gas Critical Value Read Back Batsheva SKELTON RN Blood Gas Low PEEP Setting 5.0 Blood Gas Modality VENT - AC Blood Gas Notified Time 04/15/2016 3:11:00 PM Blood Gas Notified Whom JLD Blood Gas Respiration Rate 16.0 Blood Gas Specimen Source Blood arterial Blood Gas Temperature 37.0 Blood Gas Tidal Volume 550.0 FiO2 30.0 Oxyhemoglobin Percent 97.6 Total Hemoglobin 11.1 L Test 04/15/16 08:25 04/15/16 10:50 04/15/16 12:22 Bedside Glucose 77 87 78 Medications Medications Current Medications Ondansetron HCl (Zofran Inj) 4 mg Q6H PRN IV NAUSEA AND/OR VOMITING; Start at 06:30 Acetaminophen (Tylenol Tab) 650 mg Q6H PRN PO PAIN LEVEL 1-3 OR FEVER Last administered on 04/14/16 05:56; Admin Dose 650 MG; Start 04/13/16 at 06:30 Acetaminophen (Tylenol Supp) 650 mg Q4H PRN [place] PAIN LEVEL 1-3 OR FEVER; Start 04/13/16 at 06:30 Pantoprazole (Protonix Iv) 40 mg DAILY@06 IV Last administered on 04/15/16 05: 41; Admin Dose 40 MG; Start 04/14/16 at 06:00 Heparin Sodium (Porcine) (Heparin (5000 Units/0.5 ml)) 5,000 unit Q12 SC Last administered on 04/15/16 08:29; Admin Dose 5,000 UNIT; Start 04/13/16 at 09:00 Dextrose (D50w Syringe) 25 ml Q15M PRN IV Till BS 80 mg/dL or above x2 Last administered on 04/15/16 05:41; Admin Dose 25 ML; Start 04/13/16 at 06:30 Dextrose (D50w Syringe) 50 ml Q15M PRN IV Till BS 80 mg/dL or above x2; Start 04/13/16 at 06:30 Acetaminophen (Tylenol Supp) 650 mg Q4H PRN [place] TEMP > 37C; Start 04/13/16 at 06 :30 Acetaminophen (Tylenol Liquid) 650 mg Q4H PRN PO TEMP > 37C; Start 04/13/16 at 06:30 Acetaminophen (Tylenol Supp) 500 mg Q6H [place] Last administered on 04/15/16 12:25 ; Admin Dose 500 MG; Start 04/14/16 at 06:30 Meperidine HCl (Demerol) 12.5 mg Q4H PRN IV POST OPERATIVE SHIVERING; Start at 06:30 Meperidine HCl 25 mg 25 mg Q4H PRN IV POST OPERATIVE SHIVERING; Start 04/13/16 at 06:30 Piperacillin Sod/ Tazobactam Sod 100 ml @ 25 mls/hr TID@02,10,18 IVPB Last administered on 04/15/16 10:52; Admin Dose 25 MLS/HR; Start 04/13/16 at 18:00 Fentanyl/Dextrose (D5W) 100 ml @ 2.5 mls/hr TITRATE IV Last administered on 08:04; Admin Dose 10 MLS/HR; Start 04/13/16 at 15:30 Morphine Sulfate 2 mg 2 mg Q3H PRN IV PAIN Last administered on 04/15/16 08:30 ; Admin Dose 2 MG; Start 04/13/16 at 15:25 Propofol (Diprivan) 100 ml @ 2.55 mls/hr Q12H IV Last administered on 10:55; Admin Dose 25.5 MLS/HR; Start 04/13/16 at 17:30 Aspirin (Aspirin) 81 mg DAILY NGT Last administered on 04/15/16 08:27; Admin Dose 81 MG; Start 04/14/16 at 14:00 Atorvastatin Calcium 20 mg 20 mg HS PO Last administered on 04/14/16 20:43; Admin Dose 20 MG; Start 04/14/16 at 21:00 Dextrose/Sodium Chloride 1,000 ml @ 100 mls/hr Q10H IV Last administered on 10:52; Admin Dose 100 MLS/HR; Start 04/14/16 at 15:30 Norepinephrine/ Dextrose (Levophed/D5W) 500 ml @ 0 mls/hr TITRATE IV Last administered on 04/15/16 03:52; Admin Dose 15 MLS/HR; Start 04/14/16 at 19:00 Metoprolol Tartrate (Lopressor) 25 mg BID NGT ; Start 04/15/16 at 21:00 Metoclopramide HCl (Reglan) 5 mg Q6 IV ; Start 04/15/16 at 18:00 Giorgio Knight DO Apr 15, 2016 15:38
[2016-04-15] MEDS: METOCLOPRAMIDE 10 MG INJ IV SCH ×2 (18:02→23:40)
[2016-04-15] MEDS: ATORVASTATIN 20 MG TAB PO SCH (21:04)
[2016-04-15] MEDS: METOPROLOL 25 MG TAB NGT SCH (21:04)
[2016-04-16] VITALS (57 sets, daily range): BP systolic 76–129; BP diastolic 50–85; PULSE 87–113; RESP 14–18
[2016-04-16] MEDS: PROPOFOL 100 ML IV SCH ×6 (02:14→23:16)
[2016-04-16] MEDS: PIPER-TAZO 3.375 GM IV (PMX) 100 ML IVPB SCH ×3 (02:14→17:28)
[2016-04-16] MEDS: FENTAnyl 1,000 MCG in DEXTROSE 5% 80 ML IV SCH ×2 (04:25→16:39)
[2016-04-16 05:04] LABS: BASOPHIL # 0.1 10^3/ul (0.0-0.1); BASOPHILS % 0.7 % (0.0-2.0); EOSINOPHILS # 0.2 10^3/ul (0.0-0.5); EOSINOPHILS % 1.4 % (0.0-7.0); HEMATOCRIT 28.4 % (37.0-47.0); HEMOGLOBIN 9.6 g/dl (12.0-16.0); LYMPHOCYTES # 3.1 10^3/ul (0.8-2.9); LYMPHOCYTES % 26.8 % (15.0-51.0); MEAN CORPUSCULAR HEMOGLOBIN 29.7 pg (29.0-33.0); MEAN CORPUSCULAR HGB CONC 33.9 g/dl (32.0-37.0); MEAN CORPUSCULAR VOLUME 87.7 fl (82.0-101.0); MEAN PLATELET VOLUME 9.8 fl (7.4-10.4); MONOCYTE # 0.3 10^3/ul (0.3-0.9); MONOCYTES % 2.7 % (0.0-11.0); NEUTROPHIL # 7.9 10^3/ul (1.6-7.5); NEUTROPHILS % 68.4 % (39.0-77.0); PLATELET COUNT 188 10^3/UL (140-440); RED BLOOD COUNT 3.24 10^6/ul (4.20-5.40); RED CELL DISTRIBUTION WIDTH 13.6 % (11.5-14.5); UNCORRECTED WBC 11.5 10^3/ul (4.8-10.8); WHITE BLOOD COUNT 11.5 10^3/ul (4.8-10.8)
[2016-04-16 05:06] LABS: POTASSIUM 3.2 mmol/L (3.5-5.1)
[2016-04-16 05:08] LABS: CREATININE 0.63 mg/dl (0.44-1.00)
[2016-04-16 05:09] LABS: CALCIUM 7.5 mg/dl (8.4-10.2); MAGNESIUM 1.6 mg/dl (1.7-2.5)
[2016-04-16 05:13] LABS: CONDITION 1
[2016-04-16] MEDS: PANTOPRAZOLE 40 MG INJ IV SCH (05:16)
[2016-04-16] MEDS: METOCLOPRAMIDE 10 MG INJ IV SCH ×4 (05:16→23:14)
[2016-04-16] MEDS: ACETAMINOPHEN 650 MG SUPP PR SCH (05:16)
[2016-04-16] MEDS: DEXTROSE 5%-0.45% NACL 1,000 ML IV SCH ×3 (07:37→21:16)
[2016-04-16] MEDS: ASPIRIN 81 MG TAB NGT SCH (09:05)
[2016-04-16] MEDS: METOPROLOL 25 MG TAB NGT SCH ×2 (09:05→21:17)
[2016-04-16] MEDS: HEPARIN 5,000 UNIT/0.5 ML SYG SC SCH ×2 (09:10→21:29)
[2016-04-16] MEDS ORDERED: POTASSIUM CHLORIDE (SR) 20 MEQ TAB PO ONE ×2 (11:00→17:00)
--- NOTE | 2016-04-16 11:56 | CONS ---
Date/Time of Note Date/Time of Note DATE: 04/16/16 TIME: 11:54 Assessment/Plan Assessment/Plan Additional Assessment/Plan Cardiac arrest Ventricular fibrillation Severe cardiomyopathy with ejection fraction 25% SIRS Sinus tachycardia Methamphetamine use Elevated troponins -Blood pressure trend remained stable, no further elevated temperature as per nursing staff. Potassium and magnesium supplementation ordered to maintain potassium above 4.0 and magnesium above 2.0. Vent management as per pulmonary. Consultation Date/Type/Reason Admit Date/Time Apr 13, 2016 at 06:25 Type of Consultation: cv 24 HR Interval Summary Free Text/Dictation More purposeful movements as per nursing staff, currently sedated secondary to agitation this morning Exam/Review of Systems Vital Signs Vitals Vital Signs Date Time Temp Pulse Resp B/P Pulse Ox O2 Delivery O2 Flow Rate FiO2 04/16/16 11:20 97 16 100 30 04/16/16 10:00 115/58 Mechanical Ventilator 04/16/16 08:00 98.9 04/13/16 02:25 15.0 Intake and Output 04/15/16 04/15/16 04/16/16 15:00 23:00 07:00 Intake Total 1074.0 ml 1144.0 ml 1184.0 ml Output Total 734 ml 1199 ml 559 ml Balance 340.0 ml -55.0 ml 625.0 ml Exam Sedated and intubated, no apparent distress Head: normocephalic ENMT: intubated Respiratory: other (course breath sounds bilaterally, no wheezing) Cardiovascular: other (S1 and S2 heard), regular rate and rhythm Gastrointestinal: bowel sounds, non-tender, soft Extremities: edema (trace) Results Result Diagram: 04/16/16 0400 04/16/16 0400 Results 24 hrs Laboratory Tests Test 04/15/16 12:22 04/15/16 18:38 04/16/16 04:00 Bedside Glucose 78 75 Anion Gap 10 Basophils # 0.1 Basophils % 0.7 Blood Urea Nitrogen 5 L Calcium Level 7.5 L Carbon Dioxide Level 27 Chloride Level 107 Creatinine 0.63 Eosinophils # 0.2 Eosinophils % 1.4 Glucose Level 80 Hematocrit 28.4 L Hemoglobin 9.6 L Lymphocytes # 3.1 H Lymphocytes % 26.8 Magnesium Level 1.6 L Mean Corpuscular Hemoglobin 29.7 Mean Corpuscular Hemoglobin Concent 33.9 Mean Corpuscular Volume 87.7 Mean Platelet Volume 9.8 Monocytes # 0.3 Monocytes % 2.7 Neutrophils # 7.9 H Neutrophils % 68.4 Nucleated Red Blood Cells # 0.0 Nucleated Red Blood Cells % 0.0 Platelet Count 188 Potassium Level 3.2 L Red Blood Count 3.24 L Red Cell Distribution Width 13.6 Sodium Level 141 White Blood Count 11.5 #H Medications Medications Current Medications Ondansetron HCl (Zofran Inj) 4 mg Q6H PRN IV NAUSEA AND/OR VOMITING; Start at 06:30 Acetaminophen (Tylenol Tab) 650 mg Q6H PRN PO PAIN LEVEL 1-3 OR FEVER Last administered on 04/14/16 05:56; Admin Dose 650 MG; Start 04/13/16 at 06:30 Acetaminophen (Tylenol Supp) 650 mg Q4H PRN [place] PAIN LEVEL 1-3 OR FEVER; Start 04/13/16 at 06:30 Pantoprazole (Protonix Iv) 40 mg DAILY@06 IV Last administered on 04/16/16 05: 16; Admin Dose 40 MG; Start 04/14/16 at 06:00 Heparin Sodium (Porcine) (Heparin (5000 Units/0.5 ml)) 5,000 unit Q12 SC Last administered on 04/16/16 09:10; Admin Dose 5,000 UNIT; Start 04/13/16 at 09:00 Dextrose (D50w Syringe) 25 ml Q15M PRN IV Till BS 80 mg/dL or above x2 Last administered on 04/15/16 05:41; Admin Dose 25 ML; Start 04/13/16 at 06:30 Dextrose (D50w Syringe) 50 ml Q15M PRN IV Till BS 80 mg/dL or above x2; Start 04/13/16 at 06:30 Acetaminophen (Tylenol Supp) 650 mg Q4H PRN [place] TEMP > 37C; Start 04/13/16 at 06 :30 Acetaminophen (Tylenol Liquid) 650 mg Q4H PRN PO TEMP > 37C; Start 04/13/16 at 06:30 Meperidine HCl (Demerol) 12.5 mg Q4H PRN IV POST OPERATIVE SHIVERING; Start at 06:30 Meperidine HCl 25 mg 25 mg Q4H PRN IV POST OPERATIVE SHIVERING; Start 04/13/16 at 06:30 Piperacillin Sod/ Tazobactam Sod 100 ml @ 25 mls/hr TID@02,,18 IVPB Last administered on 04/16/16 09:11; Admin Dose 25 MLS/HR; Start 04/13/16 at 18:00 Fentanyl/Dextrose (D5W) 100 ml @ 2.5 mls/hr TITRATE IV Last administered on 04:25; Admin Dose 10 MLS/HR; Start 04/13/16 at 15:30 Morphine Sulfate 2 mg 2 mg Q3H PRN IV PAIN Last administered on 04/15/16 08:30 ; Admin Dose 2 MG; Start 04/13/16 at 15:25 Propofol (Diprivan) 100 ml @ 2.55 mls/hr Q12H IV Last administered on 09:43; Admin Dose 15.3 MLS/HR; Start 04/13/16 at 17:30 Aspirin (Aspirin) 81 mg DAILY NGT Last administered on 04/16/16 09:05; Admin Dose 81 MG; Start 04/14/16 at 14:00 Atorvastatin Calcium 20 mg 20 mg HS PO Last administered on 04/15/16 21:04; Admin Dose 20 MG; Start 04/14/16 at 21:00 Dextrose/Sodium Chloride 1,000 ml @ 100 mls/hr Q10H IV Last administered on 07:37; Admin Dose 100 MLS/HR; Start 04/14/16 at 15:30 Norepinephrine/ Dextrose (Levophed/D5W) 500 ml @ 0 mls/hr TITRATE IV Last administered on 04/15/16 03:52; Admin Dose 15 MLS/HR; Start 04/14/16 at 19:00 Metoprolol Tartrate (Lopressor) 25 mg BID NGT Last administered on 04/16/16 09 :05; Admin Dose 25 MG; Start 04/15/16 at 21:00 Metoclopramide HCl (Reglan) 5 mg Q6 IV Last administered on 04/16/16 11:30; Admin Dose 5 MG; Start 04/15/16 at 18:00 Potassium Chloride 40 meq 40 meq ONCE ONCE PO ; Start 04/16/16 at 17:00; Stop 1/20/17 at 17:01 Magnesium Sulfate/ Sodium Chloride (Magnesium Sulfate/NS) 106 ml @ 35.333 mls/ hr ONCE ONCE IVPB ; Start 04/16/16 at 13:00; Stop 04/16/16 at 15:59 Giorgio Knight DO Apr 16, 2016 11:56
--- NOTE | 2016-04-16 12:55 | PN ---
DATE: 04/16/2016 SUBJECTIVE: Chart reviewed. Events noted. Off sedation, the patient is still quite agitated and n ot following any commands. Currently, orally intubated, saturating 100%. PHYSICAL EXAMINATION VITAL SIGNS: Blood pressure 109/63, pulse 98, respirations 16, temperature afebrile. HEENT: Pupils are equal and react to light and orally intubated. NECK: Supple, no JVD noted, no cervical adenopathy, no carotid bruits heard. LUNGS: Fair breath sounds bilaterally. CARDIOVASCULAR: S1, S2 normal. ABDOMEN: Soft, nontender. No organomegaly or masses noted. EXTREMITIES: No clubbing, cyanosis, or edema. NEUROLOGIC: Encephalopathic however, currently sedated. LABORATORY DATA: WBC 11.5, hemoglobin 9.6, hematocrit 28.4, platelets 188. Sodium 141, potassium 3 .2, chloride 107, CO2 27, BUN 5, creatinine 0.63, glucose 80. IMPRESSION 1. Status post cardiopulmonary arrest, V-fib. 2. Status post hypothermia protocol. 3. Persistent encephalopathy. 4. Methamphetamine use. RECOMMENDATIONS 1. Continue vent support for now. 2. Monitor neuro function. 3. Once neurologically improves, we will begin weaning. 4. Continue antibiotics. 5. Consultants noted. 6. Discussed with family at bedside. Dictated By: MARK DOUGLAS MD, MA/HARINDER Conf#: [id number] DID#: [id number]
[2016-04-16] MEDS ORDERED: MAGNESIUM SULFATE 3 GM in SOD CHLORIDE 0.9% 100 ML IVPB ONE (13:00)
[2016-04-16] MEDS ORDERED: MAGNESIUM SULFATE 2 GM/50 ML 50 ML IVPB ONE (13:00)
--- NOTE | 2016-04-16 15:28 | PN ---
Date/Time of Note Date/Time of Note DATE: 04/16/16 TIME: 15:25 Assessment/Plan VTE Prophylaxis VTE Prophylaxis Intervention: LMWH Lines/Catheters [facility] Central Line Central line still needed: Yes Urinary Cath still in place: Yes Reason Cath still needed: urinary retention Assessment/Plan Assessment/Plan 1. S/p Cardiopulmonary arrest 2. Ventricular fibrillation, on amiodarone drip, follow up with cardiology 3. Right upper lobe pneumonia, likely aspiration, improving on zosyn 4. Ventilator-dependent respiratory failure, follow up with pulmonology 5. Severe lactic acidosis from cardiac arrest and sepsis 6. Mildly elevated troponin, follow up with cardiology 7. Acute pancreatitis from cardiopulmonary arrest/ischemia, and ETOH, follow up with amylase/lipase 8. Elevated transaminases, shock related, ETOH, follow up with LFTs 9. Substance abuse 10. Sinus tachycardia, metoprolol 11. Sepsis from aspiration pneumonia, improving 12 Hypokalemia,hypomagnesemia, supplement 13. GI/DVT prophylaxis Subjective 24 Hr Interval Summary Free Text/Dictation on vent and sedated Exam/Review of Systems Vital Signs Vitals Vital Signs Date Time Temp Pulse Resp B/P Pulse Ox O2 Delivery O2 Flow Rate FiO2 04/16/16 13:19 94 16 100 30 04/16/16 12:00 98.9 110/61 Mechanical Ventilator 04/13/16 02:25 15.0 Intake and Output 04/15/16 04/15/16 04/16/16 15:00 23:00 07:00 Intake Total 1074.0 ml 1144.0 ml 1184.0 ml Output Total 734 ml 1199 ml 589 ml Balance 340.0 ml -55.0 ml 595.0 ml Exam Constitutional: other (sedated) Head: atraumatic, normocephalic Eyes: EOMI, PERRL, nl conjunctiva, nl lids, nl sclera ENMT: intubated, mucosa pink and moist, nl external ears & nose, nl lips & teeth, nl nasal mucosa & septum Neck: non-tender, supple Respiratory: clear to auscultation, normal air movement, No congested cough, No crackles/rales, No diminished breath sounds, No intercostal retraction, No labored breathing, No respirations, No tactile fremitus, No wheezing Cardiovascular: nl pulses, regular rate and rhythm, No S3, No S4, No bruits, No diastolic murmur, No edema, No gallop, No irregular rhythm, No jugular venous distention (JVD), No murmurs/extra sounds, No rub, No systolic murmur Gastrointestinal: nl liver, spleen, soft, No ascites, No bowel sounds, No distended, No firm, No hepatomegaly, No mass , No rebound or guarding, No splenomegaly, No surgical scars Musculoskeletal: nl extremities to inspection Extremities: normal pulses, other, No calf tenderness, No clubbing, No cyanosis, No edema, No palpable cord, No pitting pedal edema, No tenderness Neurological: other (sedated), unresponsive Skin: nl turgor, rash or lesions Lymph: nl lymph nodes Results Result Diagram: 04/16/1639904/16/16 040 Results 24 hrs Laboratory Tests Test 04/15/16 18:38 04/16/16 04:00 Bedside Glucose 75 Anion Gap 10 Basophils # 0.1 Basophils % 0.7 Blood Urea Nitrogen 5 L Calcium Level 7.5 L Carbon Dioxide Level 27 Chloride Level 107 Creatinine 0.63 Eosinophils # 0.2 Eosinophils % 1.4 Glucose Level 80 Hematocrit 28.4 L Hemoglobin 9.6 L Lymphocytes # 3.1 H Lymphocytes % 26.8 Magnesium Level 1.6 L Mean Corpuscular Hemoglobin 29.7 Mean Corpuscular Hemoglobin Concent 33.9 Mean Corpuscular Volume 87.7 Mean Platelet Volume 9.8 Monocytes # 0.3 Monocytes % 2.7 Neutrophils # 7.9 H Neutrophils % 68.4 Nucleated Red Blood Cells # 0.0 Nucleated Red Blood Cells % 0.0 Platelet Count 188 Potassium Level 3.2 L Red Blood Count 3.24 L Red Cell Distribution Width 13.6 Sodium Level 141 White Blood Count 11.5 #H Medications Medications Current Medications Ondansetron HCl (Zofran Inj) 4 mg Q6H PRN IV NAUSEA AND/OR VOMITING; Start at 06:30 Acetaminophen (Tylenol Tab) 650 mg Q6H PRN PO PAIN LEVEL 1-3 OR FEVER Last administered on 04/14/16t 05:56; Admin Dose 650 MG; Start 04/13/16 at 06:30 Acetaminophen (Tylenol Supp) 650 mg Q4H PRN [place] PAIN LEVEL 1-3 OR FEVER; Start 04/13/16 at 06:30 Pantoprazole (Protonix Iv) 40 mg DAILY@06 IV Last administered on 04/16/16 05: 16; Admin Dose 40 MG; Start 04/14/16 at 06:00 Heparin Sodium (Porcine) (Heparin (5000 Units/0.5 ml)) 5,000 unit Q12 SC Last administered on 04/16/16 09:10; Admin Dose 5,000 UNIT; Start 04/13/16 at 09:00 Dextrose (D50w Syringe) 25 ml Q15M PRN IV Till BS 80 mg/dL or above x2 Last administered on 04/15/16 05:41; Admin Dose 25 ML; Start 04/13/16 at 06:30 Dextrose (D50w Syringe) 50 ml Q15M PRN IV Till BS 80 mg/dL or above x2; Start 04/13/16 at 06:30 Acetaminophen (Tylenol Supp) 650 mg Q4H PRN [place] TEMP > 37C; Start 04/13/16 at 06 :30 Acetaminophen (Tylenol Liquid) 650 mg Q4H PRN PO TEMP > 37C; Start 04/13/16 at 06:30 Meperidine HCl (Demerol) 12.5 mg Q4H PRN IV POST OPERATIVE SHIVERING; Start at 06:30 Meperidine HCl 25 mg 25 mg Q4H PRN IV POST OPERATIVE SHIVERING; Start 04/13/16 at 06:30 Piperacillin Sod/ Tazobactam Sod 100 ml @ 25 mls/hr TID@02,10,18 IVPB Last administered on 04/16/16 09:11; Admin Dose 25 MLS/HR; Start 04/13/16 at 18:00 Fentanyl/Dextrose (D5W) 100 ml @ 2.5 mls/hr TITRATE IV Last administered on 04:25; Admin Dose 10 MLS/HR; Start 04/13/16 at 15:30 Morphine Sulfate 2 mg 2 mg Q3H PRN IV PAIN Last administered on 04/15/16 08:30 ; Admin Dose 2 MG; Start 04/13/16 at 15:25 Propofol (Diprivan) 100 ml @ 2.55 mls/hr Q12H IV Last administered on 13:47; Admin Dose 20.4 MLS/HR; Start 04/13/16 at 17:30 Aspirin (Aspirin) 81 mg DAILY NGT Last administered on 04/16/16 09:05; Admin Dose 81 MG; Start 04/14/16 at 14:00 Atorvastatin Calcium 20 mg 20 mg HS PO Last administered on 04/15/16 21:04; Admin Dose 20 MG; Start 04/14/16 at 21:00 Dextrose/Sodium Chloride 1,000 ml @ 100 mls/hr Q10H IV Last administered on 07:37; Admin Dose 100 MLS/HR; Start 04/14/16 at 15:30 Norepinephrine/ Dextrose (Levophed/D5W) 500 ml @ 0 mls/hr TITRATE IV Last administered on 04/15/16 03:52; Admin Dose 15 MLS/HR; Start 04/14/16 at 19:00 Metoprolol Tartrate (Lopressor) 25 mg BID NGT Last administered on 04/16/16 09 :05; Admin Dose 25 MG; Start 04/15/16 at 21:00 Metoclopramide HCl (Reglan) 5 mg Q6 IV Last administered on 04/16/16 11:30; Admin Dose 5 MG; Start 04/15/16 at 18:00 Potassium Chloride 40 meq 40 meq ONCE ONCE PO ; Start 04/16/16 at 17:00; Stop 04/16/16 at 17:01 Magnesium Sulfate/ Sodium Chloride (Magnesium Sulfate/NS) 106 ml @ 35.333 mls/ hr ONCE ONCE IVPB Last administered on 04/16/16 12:05; Admin Dose 35.333 MLS/ HR; Start 04/16/16 at 13:00; Stop 04/16/16 at 15:59 COLLIN MANNING MD Apr 16, 2016 15:28
[2016-04-16] MEDS: ATORVASTATIN 20 MG TAB PO SCH (21:16)
[2016-04-17] VITALS (54 sets, daily range): BP systolic 107–131; BP diastolic 56–92; PULSE 86–106; RESP 5–18
[2016-04-17] MEDS: PIPER-TAZO 3.375 GM IV (PMX) 100 ML IVPB SCH ×3 (01:29→17:29)
[2016-04-17] MEDS: FENTAnyl 1,000 MCG in DEXTROSE 5% 80 ML IV SCH ×3 (01:34→21:33)
[2016-04-17] MEDS: PROPOFOL 100 ML IV SCH ×5 (03:45→21:29)
[2016-04-17 04:40] LABS: BASOPHIL # 0.1 10^3/ul (0.0-0.1); BASOPHILS % 0.7 % (0.0-2.0); EOSINOPHILS # 0.3 10^3/ul (0.0-0.5); HEMATOCRIT 28.2 % (37.0-47.0); HEMOGLOBIN 9.4 g/dl (12.0-16.0); LYMPHOCYTES # 2.1 10^3/ul (0.8-2.9); LYMPHOCYTES % 25.2 % (15.0-51.0); MEAN CORPUSCULAR HEMOGLOBIN 29.4 pg (29.0-33.0); MEAN CORPUSCULAR HGB CONC 33.4 g/dl (32.0-37.0); MEAN CORPUSCULAR VOLUME 87.9 fl (82.0-101.0); MONOCYTE # 0.5 10^3/ul (0.3-0.9); MONOCYTES % 6.1 % (0.0-11.0); NEUTROPHIL # 5.5 10^3/ul (1.6-7.5); PLATELET COUNT 208 10^3/UL (140-440); RED BLOOD COUNT 3.21 10^6/ul (4.20-5.40); RED CELL DISTRIBUTION WIDTH 13.8 % (11.5-14.5); UNCORRECTED WBC 8.5 10^3/ul (4.8-10.8); WHITE BLOOD COUNT 8.5 10^3/ul (4.8-10.8)
[2016-04-17 04:44] LABS: CONDITION 1
[2016-04-17] MEDS: PANTOPRAZOLE 40 MG INJ IV SCH (05:01)
[2016-04-17] MEDS: METOCLOPRAMIDE 10 MG INJ IV SCH ×3 (05:01→17:29)
[2016-04-17 05:07] LABS: POTASSIUM 3.2 mmol/L (3.5-5.1)
[2016-04-17 05:10] LABS: CREATININE 0.65 mg/dl (0.44-1.00)
[2016-04-17 05:11] LABS: CALCIUM 7.5 mg/dl (8.4-10.2)
[2016-04-17] MEDS: ASPIRIN 81 MG TAB NGT SCH (10:01)
[2016-04-17] MEDS: DEXTROSE 5%-0.45% NACL 1,000 ML IV SCH ×2 (10:02→21:33)
[2016-04-17] MEDS: METOPROLOL 25 MG TAB NGT SCH ×2 (10:02→21:30)
[2016-04-17] MEDS: HEPARIN 5,000 UNIT/0.5 ML SYG SC SCH ×2 (10:11→21:31)
--- NOTE | 2016-04-17 11:29 | RADRPT ---
PROCEDURE: XR Chest. CLINICAL INDICATION: pneumonia TECHNIQUE: Frontal chest x-ray was obtained. COMPARISON: Chest x-ray April 15, 2016 FINDINGS: There is an endotracheal tube with the tip 2 cm above the bro and an NG tube with the tip in the stomach. The heart is not enlarged. Mediastinum is not widened. No hilar masses seen. There has been inter tammy resolution of previously noted right lung consolidation. No effusion or pneumothorax is seen. IMPRESSION: No evidence for active cardiopulmonary disease. .Brooks Lord MD, MD Date Time Electronically viewed and signed by .Brooks Lord MD, MD on 04/17/2016 11:29 .A/
--- NOTE | 2016-04-17 12:43 | PN ---
Date/Time of Note Date/Time of Note DATE: 04/17/16 TIME: 12:34 Assessment/Plan VTE Prophylaxis VTE Prophylaxis Intervention: heparin Lines/Catheters [facility] Peripheral IV Assessment/Plan Chief Complaint/Hosp Course 1. S/p Cardiopulmonary arrest 2. Ventricular fibrillation, on amiodarone drip, follow up with cardiology 3. Right upper lobe pneumonia, likely aspiration, improving on zosyn 4. Ventilator-dependent respiratory failure, follow up with pulmonology 5. Severe lactic acidosis from cardiac arrest and sepsis 6. Mildly elevated troponin, follow up with cardiology 7. Acute pancreatitis from cardiopulmonary arrest/ischemia, and ETOH, follow up with amylase/lipase 8. Elevated transaminases, shock related, ETOH, follow up with LFTs 9. Substance abuse 10. Sinus tachycardia, metoprolol 11. Sepsis from aspiration pneumonia, improving 12 Hypokalemia,hypomagnesemia, supplement 13. DVT prophylaxis-Heparin Problems: Subjective 24 Hr Interval Summary Subjective hx not possible: pt non-verbal Exam/Review of Systems Vital Signs Vitals Vital Signs Date Time Temp Pulse Resp B/P Pulse Ox O2 Delivery O2 Flow Rate FiO2 04/17/16 08:00 95 04/17/16 05:28 16 100 30 04/17/16 05:00 119/69 Mechanical Ventilator 04/17/16 00:00 98.7 Intake and Output 04/16/16 04/16/16 04/17/16 15:00 23:00 07:00 Intake Total 1143.1 ml 1030.6 ml 712.8 ml Output Total 545 ml 710 ml 485 ml Balance 598.1 ml 320.6 ml 227.8 ml Exam Constitutional: non-verbal ENMT: intubated Respiratory: clear to auscultation Cardiovascular: regular rate and rhythm Gastrointestinal: soft, No distended Musculoskeletal: nl extremities to inspection Results Result Diagram: 04/17/16 0400 04/17/16 0400 Results 24 hrs Laboratory Tests Test 04/17/16 04:00 Anion Gap 12 Basophils # 0.1 Basophils % 0.7 Blood Urea Nitrogen 5 L Calcium Level 7.5 L Carbon Dioxide Level 24 Chloride Level 108 Creatinine 0.65 Eosinophils # 0.3 Eosinophils % 3.0 Glucose Level 91 Hematocrit 28.2 L Hemoglobin 9.4 L Lymphocytes # 2.1 Lymphocytes % 25.2 Magnesium Level 2.0 Mean Corpuscular Hemoglobin 29.4 Mean Corpuscular Hemoglobin Concent 33.4 Mean Corpuscular Volume 87.9 Mean Platelet Volume 9.0 Monocytes # 0.5 Monocytes % 6.1 Neutrophils # 5.5 Neutrophils % 65.0 Nucleated Red Blood Cells # 0.0 Nucleated Red Blood Cells % 0.0 Platelet Count 208 Potassium Level 3.2 L Red Blood Count 3.21 L Red Cell Distribution Width 13.8 Sodium Level 141 White Blood Count 8.5 # Medications Medications Current Medications Ondansetron HCl (Zofran Inj) 4 mg Q6H PRN IV NAUSEA AND/OR VOMITING; Start at 06:30 Acetaminophen (Tylenol Tab) 650 mg Q6H PRN PO PAIN LEVEL 1-3 OR FEVER Last administered on 04/14/16 05:56; Admin Dose 650 MG; Start 04/13/16 at 06:30 Acetaminophen (Tylenol Supp) 650 mg Q4H PRN [place] PAIN LEVEL 1-3 OR FEVER; Start 04/13/16 at 06:30 Pantoprazole (Protonix Iv) 40 mg DAILY@06 IV Last administered on 04/17/16 05: 01; Admin Dose 40 MG; Start 04/14/16 at 06:00 Heparin Sodium (Porcine) (Heparin (5000 Units/0.5 ml)) 5,000 unit Q12 SC Last administered on 04/17/16 10:11; Admin Dose 5,000 UNIT; Start 04/13/16 at 09:00 Dextrose (D50w Syringe) 25 ml Q15M PRN IV Till BS 80 mg/dL or above x2 Last administered on 04/15/16 05:41; Admin Dose 25 ML; Start 04/13/16 at 06:30 Dextrose (D50w Syringe) 50 ml Q15M PRN IV Till BS 80 mg/dL or above x2; Start 04/13/16 at 06:30 Acetaminophen (Tylenol Supp) 650 mg Q4H PRN [place] TEMP > 37C; Start 04/13/16 at 06 :30 Acetaminophen (Tylenol Liquid) 650 mg Q4H PRN PO TEMP > 37C; Start 04/13/16 at 06:30 Meperidine HCl (Demerol) 12.5 mg Q4H PRN IV POST OPERATIVE SHIVERING; Start at 06:30 Meperidine HCl 25 mg 25 mg Q4H PRN IV POST OPERATIVE SHIVERING; Start 04/13/16 at 06:30 Piperacillin Sod/ Tazobactam Sod 100 ml @ 25 mls/hr TID@02,10,18 IVPB Last administered on 04/17/16 11:02; Admin Dose 25 MLS/HR; Start 04/13/16 at 18:00 Fentanyl/Dextrose (D5W) 100 ml @ 2.5 mls/hr TITRATE IV Last administered on 11:55; Admin Dose 10 MLS/HR; Start 04/13/16 at 15:30 Morphine Sulfate 2 mg 2 mg Q3H PRN IV PAIN Last administered on 04/15/16 08:30 ; Admin Dose 2 MG; Start 04/13/16 at 15:25 Propofol (Diprivan) 100 ml @ 2.55 mls/hr Q12H IV Last administered on 11:56; Admin Dose 20.4 MLS/HR; Start 04/13/16 at 17:30 Aspirin (Aspirin) 81 mg DAILY NGT Last administered on 04/17/16 10:01; Admin Dose 81 MG; Start 04/14/16 at 14:00 Atorvastatin Calcium 20 mg 20 mg HS PO Last administered on 04/16/16 21:16; Admin Dose 20 MG; Start 04/14/16 at 21:00 Dextrose/Sodium Chloride 1,000 ml @ 100 mls/hr Q10H IV Last administered on 10:02; Admin Dose 100 MLS/HR; Start 04/14/16 at 15:30 Norepinephrine/ Dextrose (Levophed/D5W) 500 ml @ 0 mls/hr TITRATE IV Last administered on 04/15/16 03:52; Admin Dose 15 MLS/HR; Start 04/14/16 at 19:00 Metoprolol Tartrate (Lopressor) 25 mg BID NGT Last administered on 04/17/16 10 :02; Admin Dose 25 MG; Start 04/15/16 at 21:00 Metoclopramide HCl (Reglan) 5 mg Q6 IV Last administered on 04/17/16 12:00; Admin Dose 5 MG; Start 04/15/16 at 18:00 ITZEL KRAUSE Apr 17, 2016 12:43
--- NOTE | 2016-04-17 16:07 | PN ---
DATE: 04/16/2016 PULMONARY FOLLOW UP SUBJECTIVE: Chart reviewed. No significant events noted. Patient is off of all pressors. Off sed ation, the patient is awake, however, agitated. PHYSICAL EXAMINATION: VITAL SIGNS: Blood pressure 119/69, pulse 94, respirations 16, temperature afebrile. HEENT: Pupils are equal and reactive to light, orally intubated. NECK: Supple, no JVD noted, no cervical adenopathy noted, no carotid bruits heard. LUNGS: Fair breath sounds bilaterally. CARDIOVASCULAR: S1, S2 normal. ABDOMEN: Soft, nontender. No organomegaly or masses noted. EXTREMITIES: No clubbing or cyanosis noted. NEUROLOGICAL: Currently sedated. LABORATORY DATA: Sodium 141, potassium 3.2, chloride 108, CO2 24, BUN 5, creatinine 0.65, glucose 9 1. WBC 8.5, hemoglobin 9.4, hematocrit 28.2, platelets 208. Chest x-ray shows no acute infiltrate. IMPRESSION: 1. Acute respiratory failure, hypoxemic. 2. Status post ventricular fibrillation cardiac arrest. 3. Status post hypothermia protocol. 4. Methamphetamine abuse. RECOMMENDATIONS: 1. CPAP trial. 2. Obtain ABG after 2 hours. 3. If ABG is acceptable, the patient will be extubated. 4. Continue antibiotics. 5. Above discussed with the staff in detail. Dictated By: MARK DOUGLAS MD, MA/HARINDER Conf#: [id number] DID#: [id number]
[2016-04-17] MEDS ORDERED: POTASSIUM CHLORIDE 250 ML IVPB ONE (17:30)
[2016-04-17] MEDS: ATORVASTATIN 20 MG TAB PO SCH (21:29)
[2016-04-18] VITALS (56 sets, daily range): BP systolic 99–143; BP diastolic 56–99; PULSE 88–126; RESP 14–18
[2016-04-18] MEDS: METOCLOPRAMIDE 10 MG INJ IV SCH ×5 (00:15→23:52)
[2016-04-18] MEDS: PIPER-TAZO 3.375 GM IV (PMX) 100 ML IVPB SCH ×3 (02:06→18:39)
[2016-04-18] MEDS: PROPOFOL 100 ML IV SCH ×4 (02:08→19:35)
[2016-04-18] MEDS: PANTOPRAZOLE 40 MG INJ IV SCH (05:42)
[2016-04-18 05:51] LABS: POTASSIUM 3.5 mmol/L (3.5-5.1)
[2016-04-18 05:53] LABS: CREATININE 0.56 mg/dl (0.44-1.00)
[2016-04-18 05:54] LABS: CALCIUM 7.9 mg/dl (8.4-10.2); PHOSPHORUS 2.9 mg/dl (2.5-4.9)
[2016-04-18 05:55] LABS: MAGNESIUM 1.8 mg/dl (1.7-2.5)
[2016-04-18 06:01] LABS: BASOPHIL # 0.1 10^3/ul (0.0-0.1); BASOPHILS % 0.8 % (0.0-2.0); EOSINOPHILS # 0.4 10^3/ul (0.0-0.5); EOSINOPHILS % 5.2 % (0.0-7.0); HEMATOCRIT 27.3 % (37.0-47.0); HEMOGLOBIN 9.3 g/dl (12.0-16.0); LYMPHOCYTES # 2.2 10^3/ul (0.8-2.9); LYMPHOCYTES % 28.6 % (15.0-51.0); MEAN CORPUSCULAR HEMOGLOBIN 29.9 pg (29.0-33.0); MEAN CORPUSCULAR HGB CONC 34.2 g/dl (32.0-37.0); MEAN CORPUSCULAR VOLUME 87.3 fl (82.0-101.0); MEAN PLATELET VOLUME 9.4 fl (7.4-10.4); MONOCYTE # 0.8 10^3/ul (0.3-0.9); MONOCYTES % 10.4 % (0.0-11.0); NEUTROPHIL # 4.1 10^3/ul (1.6-7.5); PLATELET COUNT 225 10^3/UL (140-440); RED BLOOD COUNT 3.13 10^6/ul (4.20-5.40); RED CELL DISTRIBUTION WIDTH 13.6 % (11.5-14.5); UNCORRECTED WBC 7.5 10^3/ul (4.8-10.8); WHITE BLOOD COUNT 7.5 10^3/ul (4.8-10.8)
--- NOTE | 2016-04-18 06:19 | PN ---
DATE: 04/17/2016 CARDIOLOGY FOLLOWUP SUBJECTIVE: The patient was discussed with the staff, discussed with family at the bedside. The axel kuo remains intubated on the vent, nonresponsive. Rhythm strip was reviewed. Remains in sinus rh ythm. MEDICATIONS: Reviewed. OBJECTIVE: VITAL SIGNS: Temperature 98.2, heart rate of 94, blood pressure of 111/64, respiratory rate of 16. HEENT: Normocephalic, atraumatic. Status post intubation on the vent. Eyes are closed. CARDIOVASCULAR: Regular rate and rhythm. PULMONARY: With no wheezes anteriorly. GASTROINTESTINAL: Obese, soft. EXTREMITIES: Trivial edema. NEUROLOGIC: No response to verbal stimuli. LABORATORY: WBC of 8.5, hemoglobin 9.4, platelets 248. Sodium 141, potassium 3.2, BUN of 5, creati nine 0.65, glucose of 91. Echocardiogram done on 04/13/2016 shows ejection fraction of 25%. Chest x-ray done today shows no evidence of acute cardiopulmonary disease. ASSESSMENT AND PLAN: 1. Status post cardiopulmonary arrest. 2. Status post ventricular fibrillation arrest. 3. Right upper lobe pneumonia, possibly aspiration. 4. respiratory failure, status post intubation on the vent. 5. Status post lactic acidosis, improving now. 6. Mildly abnormal troponin, probably related to above. 7. Cardiomyopathy. 8. Pancreatitis. 9. Elevated LFTs. 10. History of substance abuse. 11. Electrolyte abnormality, hypokalemia. RECOMMENDATIONS: Electrolytes including potassium to be replaced. Continue with the ventilator sup port. LFTs have improved now. Respiratory care will be continued. We will continue with the suppo rtive care. Currently, remains in sinus rhythm. Follow neurological function. Continue with the I CU care and vent support. More than 38 minutes of critical care time was spent in management of this patient excluding any pro cedures. Dictated By: LISET RIDLEY/HARINDER Conf#: [id number] DID#: [id number]
[2016-04-18 07:00] LABS: CONDITION 1
[2016-04-18] MEDS: FENTAnyl 1,000 MCG in DEXTROSE 5% 80 ML IV SCH ×3 (07:00→18:45)
[2016-04-18] MEDS: DEXTROSE 5%-0.45% NACL 1,000 ML IV SCH ×2 (09:14→18:58)
[2016-04-18] MEDS: ASPIRIN 81 MG TAB NGT SCH (09:20)
[2016-04-18] MEDS: METOPROLOL 25 MG TAB NGT SCH ×2 (09:21→20:12)
[2016-04-18] MEDS: HEPARIN 5,000 UNIT/0.5 ML SYG SC SCH ×2 (09:25→20:35)
--- NOTE | 2016-04-18 09:38 | RADRPT ---
PROCEDURE: XR Chest. CLINICAL INDICATION: Cardiac arrest TECHNIQUE: AP view of the chest was performed. COMPARISON: 04/17/2016 FINDINGS: The cardiac silhouette is within normal limits. The endotracheal tube tip is above the bro and a nasogastric tube tip is below the left hemidiaph ragm. Increased perihilar markings bilaterally. IMPRESSION: 1. Support tubes and lines remain unchanged. 2. Increased perihilar markings. Findings suggestive of mild pulmonary vascular congestion. RPTAT: QQ .Neva Simeon MD, Date Time Electronically viewed and signed by .Neva Simeon MD, on 04/18/2016 09:38 .M/
--- NOTE | 2016-04-18 17:20 | PN ---
Date/Time of Note Date/Time of Note DATE: 04/18/16 TIME: 17:19 Assessment/Plan VTE Prophylaxis VTE Prophylaxis Intervention: heparin Lines/Catheters IV Catheter Type (from [facility]): Saline Lock Assessment/Plan Chief Complaint/Hosp Course 1. S/p Cardiopulmonary arrest -pt is following commands when off sedation 2. Ventricular fibrillation, on amiodarone drip, follow up with cardiology 3. Right upper lobe pneumonia, likely aspiration, improving on zosyn 4. Ventilator-dependent respiratory failure, follow up with pulmonology 5. Severe lactic acidosis from cardiac arrest and sepsis 6. Mildly elevated troponin, follow up with cardiology 7. Acute pancreatitis from cardiopulmonary arrest/ischemia, and ETOH, follow up with amylase/lipase 8. Elevated transaminases, shock related, ETOH, follow up with LFTs 9. Substance abuse 10. Sinus tachycardia, metoprolol 11. Sepsis from aspiration pneumonia, improving 12 Hypokalemia,hypomagnesemia, supplement 13. DVT prophylaxis-Heparin Problems: Subjective 24 Hr Interval Summary Subjective hx not possible: pt non-verbal Exam/Review of Systems Vital Signs Vitals Vital Signs Date Time Temp Pulse Resp B/P Pulse Ox O2 Delivery O2 Flow Rate FiO2 04/18/16 16:50 113 17 100 30 04/18/16 16:30 126/58 04/18/16 16:00 99.2 04/18/16 07:30 Mechanical Ventilator Intake and Output 04/17/16 04/17/16 04/18/16 15:00 23:00 07:00 Intake Total 900 ml 1148.6 ml 1084.92 ml Output Total 800 ml 1350 ml 900 ml Balance 100 ml -201.4 ml 184.92 ml Exam Constitutional: non-verbal ENMT: intubated Respiratory: clear to auscultation Cardiovascular: regular rate and rhythm Gastrointestinal: soft, No distended Musculoskeletal: nl extremities to inspection Results Result Diagram: 04/18/16 0400 04/18/16 0400 Results 24 hrs Laboratory Tests Test 04/18/16 04:00 Anion Gap 14 Basophils # 0.1 Basophils % 0.8 Blood Urea Nitrogen 4 L Calcium Level 7.9 L Carbon Dioxide Level 22 Chloride Level 109 Creatinine 0.56 Eosinophils # 0.4 Eosinophils % 5.2 Glucose Level 87 Hematocrit 27.3 L Hemoglobin 9.3 L Lymphocytes # 2.2 Lymphocytes % 28.6 Magnesium Level 1.8 Mean Corpuscular Hemoglobin 29.9 Mean Corpuscular Hemoglobin Concent 34.2 Mean Corpuscular Volume 87.3 Mean Platelet Volume 9.4 Monocytes # 0.8 Monocytes % 10.4 Neutrophils # 4.1 Neutrophils % 55.0 Nucleated Red Blood Cells # 0.0 Nucleated Red Blood Cells % 0.0 Phosphorus Level 2.9 Platelet Count 225 Potassium Level 3.5 Red Blood Count 3.13 L Red Cell Distribution Width 13.6 Sodium Level 141 White Blood Count 7.5 Medications Medications Current Medications Ondansetron HCl (Zofran Inj) 4 mg Q6H PRN IV NAUSEA AND/OR VOMITING; Start at 06:30 Acetaminophen (Tylenol Tab) 650 mg Q6H PRN PO PAIN LEVEL 1-3 OR FEVER Last administered on 04/14/16 05:56; Admin Dose 650 MG; Start 04/13/16 at 06:30 Acetaminophen (Tylenol Supp) 650 mg Q4H PRN [place] PAIN LEVEL 1-3 OR FEVER; Start 04/13/16 at 06:30 Pantoprazole (Protonix Iv) 40 mg DAILY@06 IV Last administered on 04/18/16 05: 42; Admin Dose 40 MG; Start 04/14/16 at 06:00 Heparin Sodium (Porcine) (Heparin (5000 Units/0.5 ml)) 5,000 unit Q12 SC Last administered on 04/18/16 09:25; Admin Dose 5,000 UNIT; Start 04/13/16 at 09:00 Dextrose (D50w Syringe) 25 ml Q15M PRN IV Till BS 80 mg/dL or above x2 Last administered on 04/15/16 05:41; Admin Dose 25 ML; Start 04/13/16 at 06:30 Dextrose (D50w Syringe) 50 ml Q15M PRN IV Till BS 80 mg/dL or above x2; Start 04/13/16 at 06:30 Acetaminophen (Tylenol Supp) 650 mg Q4H PRN [place] TEMP > 37C; Start 04/13/16 at 06 :30 Acetaminophen (Tylenol Liquid) 650 mg Q4H PRN PO TEMP > 37C; Start 04/13/16 at 06:30 Meperidine HCl (Demerol) 12.5 mg Q4H PRN IV POST OPERATIVE SHIVERING; Start at 06:30 Meperidine HCl 25 mg 25 mg Q4H PRN IV POST OPERATIVE SHIVERING; Start 04/13/16 at 06:30 Piperacillin Sod/ Tazobactam Sod 100 ml @ 25 mls/hr TID@02,10,18 IVPB Last administered on 04/18/16 09:25; Admin Dose 25 MLS/HR; Start 04/13/16 at 18:00 Fentanyl/Dextrose (D5W) 100 ml @ 2.5 mls/hr TITRATE IV Last administered on 07:00; Admin Dose 10 MLS/HR; Start 04/13/16 at 15:30 Morphine Sulfate 2 mg 2 mg Q3H PRN IV PAIN Last administered on 04/15/16 08:30 ; Admin Dose 2 MG; Start 04/13/16 at 15:25 Propofol (Diprivan) 100 ml @ 2.55 mls/hr Q12H IV Last administered on 15:03; Admin Dose 15.3 MLS/HR; Start 04/13/16 at 17:30 Aspirin (Aspirin) 81 mg DAILY NGT Last administered on 04/18/16 09:20; Admin Dose 81 MG; Start 04/14/16 at 14:00 Atorvastatin Calcium 20 mg 20 mg HS PO Last administered on 04/17/16 21:29; Admin Dose 20 MG; Start 04/14/16 at 21:00 Dextrose/Sodium Chloride 1,000 ml @ 100 mls/hr Q10H IV Last administered on 09:14; Admin Dose 100 MLS/HR; Start 04/14/16 at 15:30 Norepinephrine/ Dextrose (Levophed/D5W) 500 ml @ 0 mls/hr TITRATE IV Last administered on 04/15/16 03:52; Admin Dose 15 MLS/HR; Start 04/14/16 at 19:00 Metoprolol Tartrate (Lopressor) 25 mg BID NGT Last administered on 04/18/16 09 :21; Admin Dose 25 MG; Start 04/15/16 at 21:00 Metoclopramide HCl (Reglan) 5 mg Q6 IV Last administered on 04/18/16 13:34; Admin Dose 5 MG; Start 04/15/16 at 18:00 ITZEL KRAUSE Apr 18, 2016 17:20
--- NOTE | 2016-04-18 17:31 | PN ---
DATE: 04/18/2016 SUBJECTIVE: Chart reviewed. Events noted. The patient did not tolerate CPAP trial yesterday well and was very sedated and was switched back to assist control mode. Today during sedation vacation, the patient was extremely agitated, not following any commands. Sedation was resumed. PHYSICAL EXAMINATION: VITAL SIGNS: Blood pressure 128/80, pulse 118, respirations 16, temperature 98.9. HEENT: Pupils are equal and reactive to light, orally intubated. NECK: Supple, no JVD noted, no cervical adenopathy, no carotid bruits heard. LUNGS: Fair breath sounds bilaterally. CARDIOVASCULAR: S1, S2 normal. ABDOMEN: Soft, nontender. No organomegaly or masses noted. EXTREMITIES: No clubbing, cyanosis, or edema. NEUROLOGIC: Sedated on the vent. LABORATORY DATA: WBC 7.5, hemoglobin 9.3, hematocrit 27.3, platelets 225. Sodium 141, potassium 3. 5, chloride 109, CO2 22, BUN 4, creatinine 0.56, glucose 87. IMAGING: Chest x-ray shows mildly increased perihilar markings. IMPRESSION: 1. Acute respiratory failure, hypoxemic. 2. Status post ventricular fibrillation cardiac arrest. 3. Status post hypothermia protocol. 4. Methamphetamine abuse. 5. Encephalopathy. RECOMMENDATIONS: 1. Continue vent support today. 2. Continue antibiotics. 3. Cardiology followup noted. 4. Will assess for weaning tomorrow. 5. Above discussed with the staff and family. Dictated By: MARK DOUGLAS MD, MA/HARINDER Conf#: [id number] DID#: [id number]
[2016-04-18] MEDS: ATORVASTATIN 20 MG TAB PO SCH (20:12)
[2016-04-18] MEDS: morphine 2 MG INJ IV PRN (23:52)
[2016-04-19] VITALS (88 sets, daily range): BP systolic 100–146; BP diastolic 47–109; PULSE 95–135; RESP 10–27
[2016-04-19] MEDS: PIPER-TAZO 3.375 GM IV (PMX) 100 ML IVPB SCH ×3 (01:44→17:52)
[2016-04-19] MEDS: PROPOFOL 100 ML IV SCH ×3 (01:45→10:36)
[2016-04-19] MEDS: morphine 2 MG INJ IV PRN (04:09)
[2016-04-19] MEDS: FENTAnyl 1,000 MCG in DEXTROSE 5% 80 ML IV SCH ×2 (04:10→14:28)
[2016-04-19 04:58] LABS: BASOPHIL # 0.1 10^3/ul (0.0-0.1); BASOPHILS % 0.6 % (0.0-2.0); EOSINOPHILS # 0.4 10^3/ul (0.0-0.5); EOSINOPHILS % 4.6 % (0.0-7.0); HEMATOCRIT 27.1 % (37.0-47.0); HEMOGLOBIN 9.3 g/dl (12.0-16.0); LYMPHOCYTES % 22.4 % (15.0-51.0); MEAN CORPUSCULAR HEMOGLOBIN 29.6 pg (29.0-33.0); MEAN CORPUSCULAR HGB CONC 34.3 g/dl (32.0-37.0); MEAN CORPUSCULAR VOLUME 86.3 fl (82.0-101.0); MEAN PLATELET VOLUME 9.1 fl (7.4-10.4); MONOCYTE # 0.9 10^3/ul (0.3-0.9); MONOCYTES % 10.5 % (0.0-11.0); NEUTROPHIL # 5.4 10^3/ul (1.6-7.5); NEUTROPHILS % 61.9 % (39.0-77.0); PLATELET COUNT 267 10^3/UL (140-440); RED BLOOD COUNT 3.14 10^6/ul (4.20-5.40); RED CELL DISTRIBUTION WIDTH 13.5 % (11.5-14.5); UNCORRECTED WBC 8.8 10^3/ul (4.8-10.8); WHITE BLOOD COUNT 8.8 10^3/ul (4.8-10.8)
[2016-04-19 05:10] LABS: POTASSIUM 3.2 mmol/L (3.5-5.1)
[2016-04-19 05:12] LABS: CREATININE 0.55 mg/dl (0.44-1.00)
[2016-04-19 05:13] LABS: CALCIUM 8.2 mg/dl (8.4-10.2)
[2016-04-19] MEDS: DEXTROSE 5%-0.45% NACL 1,000 ML IV SCH ×2 (05:13→15:12)
[2016-04-19] MEDS: PANTOPRAZOLE 40 MG INJ IV SCH (05:13)
[2016-04-19] MEDS: METOCLOPRAMIDE 10 MG INJ IV SCH ×4 (05:13→23:49)
[2016-04-19 05:14] LABS: CONDITION 1
[2016-04-19 07:22] LABS: MAGNESIUM 1.9 mg/dl (1.7-2.5); PHOSPHORUS 3.1 mg/dl (2.5-4.9)
[2016-04-19] MEDS: ASPIRIN 81 MG TAB NGT SCH (08:19)
[2016-04-19] MEDS: METOPROLOL 25 MG TAB NGT SCH ×2 (08:20→20:58)
[2016-04-19] MEDS: HEPARIN 5,000 UNIT/0.5 ML SYG SC SCH ×2 (08:20→20:55)
[2016-04-19] MEDS ORDERED: POTASSIUM CHLORIDE 250 ML IVPB ONE (09:00)
--- NOTE | 2016-04-19 09:42 | PN ---
DATE: 04/19/2016 HOSPITALIST PROGRESS NOTE SUBJECTIVE DATA: The patient remains intubated. Low-grade fever. OBJECTIVE DATA: VITAL SIGNS: Temperature 99.5, pulse rate 113, respiratory rate 16, blood pressure 144/95, oxygen saturation 100% on 30% FIO2 via mechanical ventilator. GENERAL: This is a well-built, well-nourished female lying in bed, orally intubated and mechanically ventilated. HEENT: Head normocephalic and atraumatic. Eyes: Anicteric sclerae. Conjunctivae clear. ENT: Nasal septum is midline. Oral mucosa is dry. RESPIRATORY: Orally intubated. On AC mode ventilation. On 30% FIO2. Bilateral diminished breath sounds. CARDIAC: Regular rate and rhythm. Sinus tachycardia on the monitor. ABDOMEN: Soft, nontender and nondistended. Bowel sounds positive in all 4 quadrants. GENITOURINARY: The patient has a Thompson catheter in place. EXTREMITIES: No cyanosis, no clubbing. Trace pedal edema. Peripheral pulses palpable. NEUROLOGIC: The patient is sedated. LABORATORY AND DIAGNOSTIC DATA: WBC 8.8, hemoglobin 9.3, hematocrit 27.1, platelet count 267. Sodium 140, potassium 3.2, chloride 109, carbon dioxide 25 , anion gap 10, BUN 2, creatinine 0.57, glucose 84, calcium 8.2, phosphorus 3.1 , magnesium 1.9. ASSESSMENT AND PLAN: 1. Status post cardiopulmonary arrest secondary to ventricular fibrillation. Cardiology following. The patient remains on a mechanical ventilator. The patient follows commands when off sedation. Ventilator weaning as per pulmonary. 2. Acute respiratory failure (hypoxic) secondary to cardiopulmonary arrest. The patient currently on mechanical ventilation. Ventilator weaning as per pulmonary. 3. Possible underlying aspiration pneumonia. Continue antibiotics. 4. Sepsis secondary to underlying urinary tract infection. Continue antibiotics. No evidence of any septic shock. 5. Severe cardiomyopathy. Ejection fraction of 25%, most probably secondary to substance abuse. Cardiology following. 6. Elevated troponins. The patient is being followed by cardiology. Continue aspirin and statins. 7. Substance abuse. Will involve aids social worker on the case. Will advise on cessation once the patient is extubated. 8. Hypokalemia. Replete. 9. Normocytic normochromic anemia. Monitor H&H closely. Transfuse as needed. 10. Fluids, electrolytes, and nutrition. The patient currently n.p.o. The patient has an OG tube in place. Will start the patient on OG tube feedings, if the patient continues to fail at weaning trials. 11. Deep venous thrombosis prophylaxis. Bilateral sequential compression devices and subcutaneous Lovenox. 12. Gastrointestinal prophylaxis. Proton pump inhibitors. 13. Continue ICU monitoring. Ventilator weaning as per pulmonary. Replete potassium. Case discussed with Dr. Schrader. Critical care time 35 minutes. TRISTON SCHRADER MD, AM/HARINDER Conf#: [id number] DID#: [id number] MTDD
--- NOTE | 2016-04-19 11:01 | CONS ---
Date/Time of Note Date/Time of Note DATE: 04/19/16 TIME: 10:58 Consult Date/Type/Reason Admit Date/Time Apr 13, 2016 at 06:25 Type of Consultation: pulmonary Subjective Patient remains agitated off sedation moves all 4 limbs according to nursing staff Remains hemodynamically stable Objective Vital Signs Date Time Temp Pulse Resp B/P Pulse Ox O2 Delivery O2 Flow Rate FiO2 04/19/16 10:00 110 16 140/84 100 04/19/16 08:00 30 04/19/16 07:30 99.5 Mechanical Ventilator Intake and Output 04/18/16 04/18/16 04/19/16 15:00 23:00 07:00 Intake Total 901.8 ml 1101.9 ml 1100.3 ml Output Total 1496 ml 1175 ml 1380 ml Balance -594.2 ml -73.1 ml -279.7 ml PHYSICAL EXAMINATION: VITAL SIGNS: As above HEENT: Pupils are equal and reactive to light, orally intubated. NECK: Supple, no JVD noted, no cervical adenopathy, no carotid bruits heard. LUNGS: Fair breath sounds bilaterally. CARDIOVASCULAR: S1, S2 normal. ABDOMEN: Soft, nontender. No organomegaly or masses noted. EXTREMITIES: No clubbing, cyanosis, or edema. NEUROLOGIC: Sedated on the vent. Results/Medications Result Diagram: 04/19/1634404/19/16344 Results 24 hrs Laboratory Tests Test 04/19/16 03:45 Anion Gap 10 Basophils # 0.1 Basophils % 0.6 Blood Urea Nitrogen 2 L Calcium Level 8.2 L Carbon Dioxide Level 24 Chloride Level 109 Creatinine 0.55 Eosinophils # 0.4 Eosinophils % 4.6 Glucose Level 84 Hematocrit 27.1 L Hemoglobin 9.3 L Lymphocytes # 2.0 Lymphocytes % 22.4 Magnesium Level 1.9 Mean Corpuscular Hemoglobin 29.6 Mean Corpuscular Hemoglobin Concent 34.3 Mean Corpuscular Volume 86.3 Mean Platelet Volume 9.1 Monocytes # 0.9 Monocytes % 10.5 Neutrophils # 5.4 Neutrophils % 61.9 Nucleated Red Blood Cells # 0.0 Nucleated Red Blood Cells % 0.0 Phosphorus Level 3.1 Platelet Count 267 Potassium Level 3.2 L Red Blood Count 3.14 L Red Cell Distribution Width 13.5 Sodium Level 140 White Blood Count 8.8 Medications Current Medications Ondansetron HCl (Zofran Inj) 4 mg Q6H PRN IV NAUSEA AND/OR VOMITING; Start at 06:30 Acetaminophen (Tylenol Tab) 650 mg Q6H PRN PO PAIN LEVEL 1-3 OR FEVER Last administered on 04/14/16 05:56; Admin Dose 650 MG; Start 04/13/16 at 06:30 Acetaminophen (Tylenol Supp) 650 mg Q4H PRN [place] PAIN LEVEL 1-3 OR FEVER; Start 04/13/16 at 06:30 Pantoprazole (Protonix Iv) 40 mg DAILY@06 IV Last administered on 04/19/16 05: 13; Admin Dose 40 MG; Start 04/14/16 at 06:00 Heparin Sodium (Porcine) (Heparin (5000 Units/0.5 ml)) 5,000 unit Q12 SC Last administered on 04/19/16 08:20; Admin Dose 5,000 UNIT; Start 04/13/16 at 09:00 Dextrose (D50w Syringe) 25 ml Q15M PRN IV Till BS 80 mg/dL or above x2 Last administered on 04/15/16 05:41; Admin Dose 25 ML; Start 04/13/16 at 06:30 Dextrose (D50w Syringe) 50 ml Q15M PRN IV Till BS 80 mg/dL or above x2; Start 04/13/16 at 06:30 Acetaminophen (Tylenol Supp) 650 mg Q4H PRN [place] TEMP > 37C; Start 04/13/16 at 06 :30 Acetaminophen (Tylenol Liquid) 650 mg Q4H PRN PO TEMP > 37C Last administered on 04/19/16 08:19; Admin Dose 650 MG; Start 04/13/16 at 06:30 Meperidine HCl (Demerol) 12.5 mg Q4H PRN IV POST OPERATIVE SHIVERING; Start at 06:30 Meperidine HCl 25 mg 25 mg Q4H PRN IV POST OPERATIVE SHIVERING; Start 04/13/16 at 06:30 Piperacillin Sod/ Tazobactam Sod 100 ml @ 25 mls/hr TID@02,10,18 IVPB Last administered on 04/19/16 09:23; Admin Dose 25 MLS/HR; Start 04/13/16 at 18:00 Fentanyl/Dextrose (D5W) 100 ml @ 2.5 mls/hr TITRATE IV Last administered on 04:10; Admin Dose 10 MLS/HR; Start 04/13/16 at 15:30 Morphine Sulfate 2 mg 2 mg Q3H PRN IV PAIN Last administered on 04/19/16 04:09 ; Admin Dose 2 MG; Start 04/13/16 at 15:25 Propofol (Diprivan) 100 ml @ 2.55 mls/hr Q12H IV Last administered on 10:36; Admin Dose 25.5 MLS/HR; Start 04/13/16 at 17:30 Aspirin (Aspirin) 81 mg DAILY NGT Last administered on 04/19/16 08:19; Admin Dose 81 MG; Start 04/14/16 at 14:00 Atorvastatin Calcium 20 mg 20 mg HS PO Last administered on 04/18/16 20:12; Admin Dose 20 MG; Start 04/14/16 at 21:00 Dextrose/Sodium Chloride 1,000 ml @ 100 mls/hr Q10H IV Last administered on 05:13; Admin Dose 100 MLS/HR; Start 04/14/16 at 15:30 Norepinephrine/ Dextrose (Levophed/D5W) 500 ml @ 0 mls/hr TITRATE IV Last administered on 04/15/16 03:52; Admin Dose 15 MLS/HR; Start 04/14/16 at 19:00 Metoprolol Tartrate (Lopressor) 25 mg BID NGT Last administered on 04/19/16 08 :20; Admin Dose 25 MG; Start 04/15/16 at 21:00 Metoclopramide HCl 5 mg 5 mg Q6 IV Last administered on 04/19/16 05:13; Admin Dose 5 MG; Start 04/15/16 at 18:00 Potassium Chloride (KCl 40 MEQ/250 ML NS) 250 ml @ 62.5 mls/hr ONCE ONCE IVPB Last administered on 04/19/16 09:49; Admin Dose 62.5 MLS/HR; Start 04/19/16 at 09:00; Stop 04/19/16 at 12:59 Assessment/Plan Chief Complaint/Hosp Course IMPRESSION: 1. Acute respiratory failure, hypoxemic. 2. Status post ventricular fibrillation cardiac arrest. 3. Status post hypothermia protocol. 4. Methamphetamine abuse. 5. Encephalopathy. RECOMMENDATIONS: 1. Continue vent support today. CPAP weaning trial 2. Continue antibiotics. 3. Cardiology followup noted. 4. Aspiration precautions if extubated 5. Above discussed with the staff and family. Problems: SHELLEY AVILA MD, [facility] Apr 19, 2016 11:01
--- NOTE | 2016-04-19 13:49 | CONS ---
Date/Time of Note Date/Time of Note DATE: 04/19/16 TIME: 13:47 Assessment/Plan Assessment/Plan Additional Assessment/Plan Cardiac arrest Ventricular fibrillation Severe cardiomyopathy with ejection fraction 25% SIRS Sinus tachycardia Methamphetamine use Elevated troponins -Increased pulmonary vessel congestion seen on chest x-ray and slightly increased lower extremity edema. Would start gentle IV diuretics as blood pressure permits. Change Lopressor to Coreg given decreased ejection fraction and start PIOTR inhibitor as blood pressure and renal function permits. Additional potassium supplementation and magnesium ordered. Consultation Date/Type/Reason Admit Date/Time Apr 13, 2016 at 06:25 Type of Consultation: cv 24 HR Interval Summary Free Text/Dictation As per nursing staff, more awake, reaching for ET tube Exam/Review of Systems Vital Signs Vitals Vital Signs Date Time Temp Pulse Resp B/P Pulse Ox O2 Delivery O2 Flow Rate FiO2 04/19/16 13:18 16 04/19/16 13:15 123 136/81 99 04/19/16 13:15 30 04/19/16 07:30 99.5 Mechanical Ventilator Intake and Output 04/18/16 04/18/16 04/19/16 15:00 23:00 07:00 Intake Total 901.8 ml 1101.9 ml 1100.3 ml Output Total 1496 ml 1175 ml 1380 ml Balance -594.2 ml -73.1 ml -279.7 ml Exam Sedated and intubated, no apparent distress Head: normocephalic ENMT: intubated Respiratory: other (course breath sounds bilaterally, no wheezing) Cardiovascular: other (S1 and S2 heard), regular rate and rhythm Gastrointestinal: bowel sounds, non-tender, soft Extremities: edema Results Result Diagram: 04/19/16 0345 04/19/16 0345 Results 24 hrs Laboratory Tests Test 04/19/16 03:45 Anion Gap 10 Basophils # 0.1 Basophils % 0.6 Blood Urea Nitrogen 2 L Calcium Level 8.2 L Carbon Dioxide Level 24 Chloride Level 109 Creatinine 0.55 Eosinophils # 0.4 Eosinophils % 4.6 Glucose Level 84 Hematocrit 27.1 L Hemoglobin 9.3 L Lymphocytes # 2.0 Lymphocytes % 22.4 Magnesium Level 1.9 Mean Corpuscular Hemoglobin 29.6 Mean Corpuscular Hemoglobin Concent 34.3 Mean Corpuscular Volume 86.3 Mean Platelet Volume 9.1 Monocytes # 0.9 Monocytes % 10.5 Neutrophils # 5.4 Neutrophils % 61.9 Nucleated Red Blood Cells # 0.0 Nucleated Red Blood Cells % 0.0 Phosphorus Level 3.1 Platelet Count 267 Potassium Level 3.2 L Red Blood Count 3.14 L Red Cell Distribution Width 13.5 Sodium Level 140 White Blood Count 8.8 Medications Medications Current Medications Ondansetron HCl (Zofran Inj) 4 mg Q6H PRN IV NAUSEA AND/OR VOMITING; Start at 06:30 Acetaminophen (Tylenol Tab) 650 mg Q6H PRN PO PAIN LEVEL 1-3 OR FEVER Last administered on 04/14/16 05:56; Admin Dose 650 MG; Start 04/13/16 at 06:30 Acetaminophen (Tylenol Supp) 650 mg Q4H PRN [place] PAIN LEVEL 1-3 OR FEVER; Start 04/13/16 at 06:30 Pantoprazole (Protonix Iv) 40 mg DAILY@06 IV Last administered on 04/19/16 05: 13; Admin Dose 40 MG; Start 04/14/16 at 06:00 Heparin Sodium (Porcine) (Heparin (5000 Units/0.5 ml)) 5,000 unit Q12 SC Last administered on 04/19/16 08:20; Admin Dose 5,000 UNIT; Start 04/13/16 at 09:00 Dextrose (D50w Syringe) 25 ml Q15M PRN IV Till BS 80 mg/dL or above x2 Last administered on 04/15/16 05:41; Admin Dose 25 ML; Start 04/13/16 at 06:30 Dextrose (D50w Syringe) 50 ml Q15M PRN IV Till BS 80 mg/dL or above x2; Start 04/13/16 at 06:30 Acetaminophen (Tylenol Supp) 650 mg Q4H PRN [place] TEMP > 37C; Start 04/13/16 at 06 :30 Acetaminophen (Tylenol Liquid) 650 mg Q4H PRN PO TEMP > 37C Last administered on 04/19/16 08:19; Admin Dose 650 MG; Start 04/13/16 at 06:30 Meperidine HCl (Demerol) 12.5 mg Q4H PRN IV POST OPERATIVE SHIVERING; Start at 06:30 Meperidine HCl 25 mg 25 mg Q4H PRN IV POST OPERATIVE SHIVERING; Start 04/13/16 at 06:30 Piperacillin Sod/ Tazobactam Sod 100 ml @ 25 mls/hr TID@02,10,18 IVPB Last administered on 04/19/16 09:23; Admin Dose 25 MLS/HR; Start 04/13/16 at 18:00 Fentanyl/Dextrose (D5W) 100 ml @ 2.5 mls/hr TITRATE IV Last administered on 04:10; Admin Dose 10 MLS/HR; Start 04/13/16 at 15:30 Morphine Sulfate 2 mg 2 mg Q3H PRN IV PAIN Last administered on 04/19/16 04:09 ; Admin Dose 2 MG; Start 04/13/16 at 15:25 Propofol (Diprivan) 100 ml @ 2.55 mls/hr Q12H IV Last administered on 10:36; Admin Dose 25.5 MLS/HR; Start 04/13/16 at 17:30 Aspirin (Aspirin) 81 mg DAILY NGT Last administered on 04/19/16 08:19; Admin Dose 81 MG; Start 04/14/16 at 14:00 Atorvastatin Calcium 20 mg 20 mg HS PO Last administered on 04/18/16 20:12; Admin Dose 20 MG; Start 04/14/16 at 21:00 Dextrose/Sodium Chloride 1,000 ml @ 100 mls/hr Q10H IV Last administered on 05:13; Admin Dose 100 MLS/HR; Start 04/14/16 at 15:30 Norepinephrine/ Dextrose (Levophed/D5W) 500 ml @ 0 mls/hr TITRATE IV Last administered on 04/15/16 03:52; Admin Dose 15 MLS/HR; Start 04/14/16 at 19:00 Metoprolol Tartrate (Lopressor) 25 mg BID NGT Last administered on 04/19/16 08 :20; Admin Dose 25 MG; Start 04/15/16 at 21:00 Metoclopramide HCl (Reglan) 5 mg Q6 IV Last administered on 04/19/16 05:13; Admin Dose 5 MG; Start 04/15/16 at 18:00 Giorgio Knight DO Apr 19, 2016 13:48
[2016-04-19] MEDS ORDERED: POTASSIUM CHLORIDE 20 MEQ POWDER FOR ORAL SOLN NGT ONE (14:00)
[2016-04-19] MEDS: AMIODARONE 200 MG TAB GTB SCH (14:41)
[2016-04-19 15:07] LABS: AADO2 Arterial 25.1 mmHg (7.0-24.0); Allen Test ACCEPTAB; Arterial Base Excess -3.8 mmol/L (-3.0-3); Arterial COHb 0.3 % (0.0-3.0); Arterial HCO3 20.5 mmol/L (22.0-26.0); Arterial MetHb 0.3 % (0.0-1.5); Arterial Total Hemglobin 11.5 g/dl (12.0-18.0); Blood Gas PS 10; MODE VENT - CPAP
[2016-04-19] MEDS ORDERED: MAGNESIUM SULFATE 3 GM in SOD CHLORIDE 0.9% 100 ML IVPB ONE (16:00)
[2016-04-19] MEDS: FUROSEMIDE 20 MG INJ IV SCH (17:50)
[2016-04-19] MEDS: LISINOPRIL 5 MG TAB GTB SCH (20:59)
[2016-04-19] MEDS: ATORVASTATIN 20 MG TAB PO SCH (20:59)
[2016-04-20] VITALS (34 sets, daily range): BP systolic 94–140; BP diastolic 45–92; PULSE 69–143; RESP 10–38
[2016-04-20] MEDS: DEXTROSE 5%-0.45% NACL 1,000 ML IV SCH ×3 (01:13→20:20)
[2016-04-20] MEDS: PIPER-TAZO 3.375 GM IV (PMX) 100 ML IVPB SCH ×3 (02:00→17:58)
[2016-04-20] MEDS: FENTAnyl 1,000 MCG in DEXTROSE 5% 80 ML IV SCH (04:52)
[2016-04-20] MEDS: PANTOPRAZOLE 40 MG INJ IV SCH (05:47)
[2016-04-20] MEDS: FUROSEMIDE 20 MG INJ IV SCH ×2 (05:47→17:58)
[2016-04-20] MEDS: METOCLOPRAMIDE 10 MG INJ IV SCH ×4 (05:47→23:31)
--- NOTE | 2016-04-20 07:21 | RADRPT ---
PROCEDURE: XR Chest. CLINICAL INDICATION: Pneumonia TECHNIQUE: A single AP view of the chest was obtained. COMPARISON: Chest x-ray dated 04/18/2016 FINDINGS: There is a left subclavian central venous catheter with tip near the cavoatrial junction. The endot jackson tube and enteric tube have been removed. Lung volumes are low. No focal airspace opacification, pleural effusion or pneumothorax is seen. T he cardiomediastinal silhouette is within normal limits for size. The osseous structures are unrema rkable. IMPRESSION: 1. Low lung volumes. Lungs are otherwise clear, with improved aeration when compared to the prior examination. 2. Tubes and lines, as described above. RPTAT: HH .Janea Aquino MD, MD Date Time Electronically viewed and signed by .Janae Aquino MD, on 04/20/2016 07:21 .G/
[2016-04-20 07:47] LABS: AADO2 Arterial 19.6 mmHg (7.0-24.0); Allen Test ACCEPTAB; Arterial Base Excess 1.3 mmol/L (-3.0-3); Arterial COHb 0.3 % (0.0-3.0); Arterial Fraction of Oxyhgb 98.6 % (93.0-99.0); Arterial HCO3 26.2 mmol/L (22.0-26.0); Arterial MetHb 0.2 % (0.0-1.5); Arterial Total Hemglobin 13.4 g/dl (12.0-18.0); MODE NASAL CANNULA
[2016-04-20 07:52] LABS: THYROID STIMULATING HORMONE 0.471 MIU/L (0.465-4.680)
[2016-04-20 08:22] LABS: PHOSPHORUS 3.3 mg/dl (2.5-4.9)
[2016-04-20 08:23] LABS: MAGNESIUM 2.1 mg/dl (1.7-2.5)
[2016-04-20] MEDS ORDERED: POTASSIUM CHLORIDE 250 ML IVPB ONE (08:30)
--- NOTE | 2016-04-20 08:32 | PN ---
Date/Time of Note Date/Time of Note DATE: 04/20/16 TIME: 08:28 Assessment/Plan VTE Prophylaxis VTE Prophylaxis Intervention: LMWH, SCD's Lines/Catheters IV Catheter Type (from Nrs): Peripheral IV Central line still needed: Yes Urinary Cath still in place: Yes Reason Cath still needed: other (indicate) Assessment/Plan Chief Complaint/Hosp Course 1. Status post cardiopulmonary arrest secondary to ventricular fibrillation. Cardiology following. Was extubated on 04/19/2016. 2. Acute respiratory failure (hypoxic) secondary to cardiopulmonary arrest. S/ P mechanical ventilation. Was extubated on 04/19/2016. 3. Possible underlying aspiration pneumonia. Continue antibiotics. 4. S/P sepsis secondary to underlying urinary tract infection. Continue antibiotics. No evidence of any septic shock. 5. Severe cardiomyopathy. Ejection fraction of 25%, most probably secondary to substance abuse. Cardiology following. 6. Elevated troponins. The patient is being followed by cardiology. Continue aspirin and statins. 7. Substance abuse. Will involve social media marketing analyst on the case. Will advise on cessation. 8. Acute encephalopathy. Most probably metabolic in origin. Brain CT from 04/13 negative fo any acute findings. 9. Transaminitis. Etiology unclear. Will trend LFTs. Avoid hepatotoxic medications. 10. Normocytic normochromic anemia. Monitor H&H closely. Transfuse as needed. 11. Fluids, electrolytes, and nutrition. The patient currently n.p.o. Failed ST evaluation. Continue IVFs. 12. Deep venous thrombosis prophylaxis. Bilateral sequential compression devices and subcutaneous Lovenox. 13. Gastrointestinal prophylaxis. Proton pump inhibitors. 14. Continue ICU monitoring. Replete potassium to keep levels at 4.0. Hold statins because of transaminitis. Continue NPO. Case discussed with Dr. Schrader. Critical care time 35 minutes. Problems: Subjective 24 Hr Interval Summary Free Text/Dictation Patient remains confused. She was extubated on 04/20/2016. Exam/Review of Systems Vital Signs Vitals Vital Signs Date Time Temp Pulse Resp B/P Pulse Ox O2 Delivery O2 Flow Rate FiO2 04/20/16 06:00 117 29 108/62 100 Room Air 04/20/16 05:31 4.0 04/20/16 04:00 98.7 04/19/16 15:39 30 Intake and Output 04/19/16 04/19/16 04/20/16 15:00 23:00 07:00 Intake Total 1327.43 ml 1052.99 ml 841.0 ml Output Total 1360 ml 3620 ml 950 ml Balance -32.57 ml -2567.01 ml -109.0 ml Exam GENERAL: This is a well-built, well-nourished female lying in bed in no apparent distress. HEENT: Head normocephalic and atraumatic. Eyes: Anicteric sclerae. Conjunctivae clear. ENT: Nasal septum is midline. Oral mucosa is dry. RESPIRATORY: Bilateral diminished breath sounds. No use of accessory muscles of respiration. CARDIAC: Regular rate and rhythm. Sinus tachycardia on the monitor. ABDOMEN: Soft, nontender and nondistended. Bowel sounds positive in all 4 quadrants. GENITOURINARY: The patient has a Thompson catheter in place. EXTREMITIES: No cyanosis, no clubbing. Trace pedal edema. Peripheral pulses palpable. NEUROLOGIC: The patient is awake and alert. Oriented X 2. Results Result Diagram: 04/19/16 0345 04/19/16 0345 Results 24 hrs Laboratory Tests Test 04/19/16 14:20 04/19/16 19:52 04/20/16 04:00 04/20/16 07:00 Arterial Blood HCO3 20.5 L 26.2 H Arterial Blood Base Excess -3.8 L 1.3 Arterial Blood Oxygen Saturation 98.6 H 99.1 H Colton Test ACCEPTAB ACCEPTAB Arterial Blood Gas Puncture Site Right Radial Right Radial Arterial Blood Carboxyhemoglobin 0.3 0.3 Arterial Blood Date Drawn 04/19/2016 2:50:32 PM 04/20/2016 7:30:00 AM Arterial Blood Methemoglobin 0.3 0.2 Arterial Blood pCO2 (Temp correct) 34.7 L 42.8 Arterial Blood pH (Temp corrected) 7.389 7.405 Arterial Blood pO2 (Temp corrected) 148.0 H 187.4 H Blood Gas A-a O2 Differential 25.1 H 19.6 Blood Gas Actual Respiration Rate 16 Blood Gas Low PEEP Setting 5.0 Blood Gas Modality VENT - CPAP NASAL CANNULA Blood Gas Notified Time 04/19/2016 3:07:11 PM 04/20/2016 7:47:00 AM Blood Gas Notified Whom DONAVON RAPHAEL Blood Gas Pressure Support 10 Blood Gas Specimen Source Blood arterial Blood arterial Blood Gas Temperature 37.0 37.0 FiO2 30.0 36.0 Oxyhemoglobin Percent 98.0 98.6 Total Hemoglobin 11.5 L 13.4 Urine Test NEGATIVE Cholesterol Level 133 Cholesterol/HDL Ratio Pending Free Thyroxine 1.35 HDL Cholesterol Pending LDL Cholesterol, Calculated Pending Magnesium Level 2.1 Phosphorus Level 3.3 Thyroid Stimulating Hormone (TSH) 0.471 Triglycerides Level 133 Medications Medications Current Medications Ondansetron HCl (Zofran Inj) 4 mg Q6H PRN IV NAUSEA AND/OR VOMITING; Start at 06:30 Acetaminophen (Tylenol Tab) 650 mg Q6H PRN PO PAIN LEVEL 1-3 OR FEVER Last administered on 04/14/16 05:56; Admin Dose 650 MG; Start 04/13/16 at 06:30 Acetaminophen (Tylenol Supp) 650 mg Q4H PRN [place] PAIN LEVEL 1-3 OR FEVER; Start 04/13/16 at 06:30 Pantoprazole (Protonix Iv) 40 mg DAILY@06 IV Last administered on 04/20/16 05: 47; Admin Dose 40 MG; Start 04/14/16 at 06:00 Heparin Sodium (Porcine) (Heparin (5000 Units/0.5 ml)) 5,000 unit Q12 SC Last administered on 04/19/16 20:55; Admin Dose 5,000 UNIT; Start 04/13/16 at 09:00 Acetaminophen (Tylenol Supp) 650 mg Q4H PRN [place] TEMP > 37C; Start 04/13/16 at 06 :30 Acetaminophen (Tylenol Liquid) 650 mg Q4H PRN PO TEMP > 37C Last administered on 04/19/16 08:19; Admin Dose 650 MG; Start 04/13/16 at 06:30 Meperidine HCl (Demerol) 12.5 mg Q4H PRN IV POST OPERATIVE SHIVERING; Start at 06:30 Meperidine HCl 25 mg 25 mg Q4H PRN IV POST OPERATIVE SHIVERING; Start 04/13/16 at 06:30 Piperacillin Sod/ Tazobactam Sod 100 ml @ 25 mls/hr TID@02,10,18 IVPB Last administered on 04/20/16 02:00; Admin Dose 25 MLS/HR; Start 04/13/16 at 18:00 Fentanyl/Dextrose (D5W) 100 ml @ 2.5 mls/hr TITRATE IV Last administered on 04:52; Admin Dose 5.5 MLS/HR; Start 04/13/16 at 15:30 Morphine Sulfate 2 mg 2 mg Q3H PRN IV PAIN Last administered on 04/19/16 04:09 ; Admin Dose 2 MG; Start 04/13/16 at 15:25 Propofol (Diprivan) 100 ml @ 2.55 mls/hr Q12H IV Last administered on 10:36; Admin Dose 25.5 MLS/HR; Start 04/13/16 at 17:30 Aspirin (Aspirin) 81 mg DAILY NGT Last administered on 04/19/16 08:19; Admin Dose 81 MG; Start 04/14/16 at 14:00 Atorvastatin Calcium 20 mg 20 mg HS PO Last administered on 04/18/16 20:12; Admin Dose 20 MG; Start 04/14/16 at 21:00 Dextrose/Sodium Chloride (D5-1/2ns) 1,000 ml @ 100 mls/hr Q10H IV Last administered on 04/20/16 01:13; Admin Dose 100 MLS/HR; Start 04/14/16 at 15:30 Metoprolol Tartrate (Lopressor) 25 mg BID NGT Last administered on 04/19/16 08 :20; Admin Dose 25 MG; Start 04/15/16 at 21:00 Metoclopramide HCl (Reglan) 5 mg Q6 IV Last administered on 04/20/16 05:47; Admin Dose 5 MG; Start 04/15/16 at 18:00 Carvedilol (Coreg) 6.25 mg BID PO ; Start 04/19/16 at 21:00 Lisinopril (Zestril) 2.5 mg BID GTB ; Start 04/19/16 at 21:00 Amiodarone HCl (Cordarone) 200 mg DAILY GTB Last administered on 04/19/16 14: 41; Admin Dose 200 MG; Start 04/19/16 at 14:00 Metoprolol Tartrate (Lopressor) 2.5 mg Q6 PRN IV ELEVATED BLOOD PRESSURE; Start 04/19/16 at 20:00 TRISTON STEINBERG NP Apr 20, 2016 08:32
[2016-04-20 08:46] LABS: POTASSIUM 4.3 mmol/L (3.5-5.1)
[2016-04-20 08:49] LABS: CREATININE 0.5 mg/dl (0.44-1.00)
[2016-04-20] MEDS: LISINOPRIL 5 MG TAB GTB SCH ×2 (09:00→20:27)
[2016-04-20] MEDS: AMIODARONE 200 MG TAB GTB SCH (09:00)
[2016-04-20] MEDS: METOPROLOL 25 MG TAB NGT SCH ×2 (09:00→20:28)
[2016-04-20] MEDS: ASPIRIN 81 MG TAB NGT SCH (09:00)
[2016-04-20] MEDS: HEPARIN 5,000 UNIT/0.5 ML SYG SC SCH ×2 (09:42→20:22)
[2016-04-20 09:44] LABS: ALBUMIN 3.4 g/dl (3.3-4.9)
[2016-04-20 09:45] LABS: POTASSIUM 3.6 mmol/L (3.5-5.1)
[2016-04-20 09:47] LABS: ALBUMIN/GLOBULIN RATIO 0.89; BILIRUBIN,INDIRECT 0.4 mg/dl (0-1.1); BILIRUBIN,TOTAL 0.4 mg/dl (0.2-1.3); CREATININE 0.51 mg/dl (0.44-1.00); TOTAL PROTEIN 7.2 g/dl (6.1-8.1)
[2016-04-20 09:48] LABS: CALCIUM 8.8 mg/dl (8.4-10.2)
[2016-04-20 09:56] LABS: CHOL/HDL RATIO 3.5 RATIO
[2016-04-20 10:03] LABS: BASOPHILS % 0.4 % (0.0-2.0); EOSINOPHILS # 0.3 10^3/ul (0.0-0.5); EOSINOPHILS % 2.1 % (0.0-7.0); HEMATOCRIT 32.7 % (37.0-47.0); LYMPHOCYTES # 1.7 10^3/ul (0.8-2.9); LYMPHOCYTES % 13.7 % (15.0-51.0); MEAN CORPUSCULAR HEMOGLOBIN 29.7 pg (29.0-33.0); MEAN CORPUSCULAR HGB CONC 33.7 g/dl (32.0-37.0); MEAN CORPUSCULAR VOLUME 88.2 fl (82.0-101.0); MEAN PLATELET VOLUME 9.5 fl (7.4-10.4); MONOCYTE # 1.2 10^3/ul (0.3-0.9); NEUTROPHILS % 73.8 % (39.0-77.0); PLATELET COUNT 324 10^3/UL (140-440); RED BLOOD COUNT 3.71 10^6/ul (4.20-5.40); RED CELL DISTRIBUTION WIDTH 13.6 % (11.5-14.5); UNCORRECTED WBC 12.2 10^3/ul (4.8-10.8); WHITE BLOOD COUNT 12.2 10^3/ul (4.8-10.8)
[2016-04-20 10:24] LABS: CONDITION 1
[2016-04-20] MEDS ORDERED: POTASSIUM CHLORIDE 20 MEQ in SOD CHLORIDE 0.9% 100 ML IVPB ONE (11:00)
[2016-04-20] MEDS ORDERED: POTASSIUM CHLORIDE 50 ML IVPB SCH (11:05)
--- NOTE | 2016-04-20 11:20 | CONS ---
Date/Time of Note Date/Time of Note DATE: 04/20/16 TIME: 11:18 Consult Date/Type/Reason Admit Date/Time Apr 13, 2016 at 06:25 Type of Consultation: pulmonary Subjective Patient remained stable postextubation Remains somewhat confused this morning Continues fentanyl drip Objective Vital Signs Date Time Temp Pulse Resp B/P Pulse Ox O2 Delivery O2 Flow Rate FiO2 04/20/16 08:00 69 04/20/16 06:00 29 108/62 100 Room Air 04/20/16 05:31 4.0 04/20/16 04:00 98.7 04/19/16 15:39 30 Intake and Output 04/19/16 04/19/16 04/20/16 14:59 22:59 06:59 Intake Total 1312.4 ml 1087.32 ml 947.0 ml Output Total 1190 ml 3470 ml 1300 ml Balance 122.4 ml -2382.68 ml -353.0 ml PHYSICAL EXAMINATION: VITAL SIGNS: As above HEENT: Pupils are equal and reactive to light, awake alert mild confusion NECK: Supple, no JVD noted, no cervical adenopathy, no carotid bruits heard. LUNGS: Fair breath sounds bilaterally. CARDIOVASCULAR: S1, S2 normal. ABDOMEN: Soft, nontender. No organomegaly or masses noted. EXTREMITIES: No clubbing, cyanosis, or edema. NEUROLOGIC: Moves all 4 limbs no focal deficits Results/Medications Result Diagram: 04/20/16 0400 04/20/16 0400 Results 24 hrs Laboratory Tests Test 04/19/16 14:20 04/19/16 19:52 04/20/16 04:00 04/20/16 07:00 Arterial Blood HCO3 20.5 L 26.2 H Arterial Blood Base Excess -3.8 L 1.3 Arterial Blood Oxygen Saturation 98.6 H 99.1 H Colton Test ACCEPTAB ACCEPTAB Arterial Blood Gas Puncture Site Right Radial Right Radial Arterial Blood Carboxyhemoglobin 0.3 0.3 Arterial Blood Date Drawn 04/19/2016 2:50:32 PM 04/20/2016 7:30:00 AM Arterial Blood Methemoglobin 0.3 0.2 Arterial Blood pCO2 (Temp correct) 34.7 L 42.8 Arterial Blood pH (Temp corrected) 7.389 7.405 Arterial Blood pO2 (Temp corrected) 148.0 H 187.4 H Blood Gas A-a O2 Differential 25.1 H 19.6 Blood Gas Actual Respiration Rate 16 Blood Gas Low PEEP Setting 5.0 Blood Gas Modality VENT - CPAP NASAL CANNULA Blood Gas Notified Time 04/19/2016 3:07:11 PM 04/20/2016 7:47:00 AM Blood Gas Notified Whom LANAD DONAVON Blood Gas Pressure Support 10 Blood Gas Specimen Source Blood arterial Blood arterial Blood Gas Temperature 37.0 37.0 FiO2 30.0 36.0 Oxyhemoglobin Percent 98.0 98.6 Total Hemoglobin 11.5 L 13.4 Urine Test NEGATIVE Alanine Aminotransferase (ALT/SGPT) 84 H Albumin 3.4 Albumin/Globulin Ratio 0.89 Alkaline Phosphatase 238 H Anion Gap 16 Aspartate Amino Transf (AST/SGOT) 128 H Basophils # 0.0 Basophils % 0.4 Blood Urea Nitrogen 3 L Calcium Level 8.8 Carbon Dioxide Level 25 Chloride Level 103 Cholesterol Level 133 Cholesterol/HDL Ratio 3.5 Creatinine 0.51 Direct Bilirubin 0.00 Eosinophils # 0.3 Eosinophils % 2.1 Free Thyroxine 1.35 Globulin 3.80 H Glucose Level 77 HDL Cholesterol 38 Hematocrit 32.7 #L Hemoglobin 11.0 L Hemoglobin A1c 5.0 Indirect Bilirubin 0.4 LDL Cholesterol, Calculated 68 Lymphocytes # 1.7 Lymphocytes % 13.7 L Magnesium Level 2.1 Mean Corpuscular Hemoglobin 29.7 Mean Corpuscular Hemoglobin Concent 33.7 Mean Corpuscular Volume 88.2 Mean Platelet Volume 9.5 Monocytes # 1.2 H Monocytes % 10.0 Neutrophils # 9.0 H Neutrophils % 73.8 Nucleated Red Blood Cells # 0.0 Nucleated Red Blood Cells % 0.0 Phosphorus Level 3.3 Platelet Count 324 # Potassium Level 3.6 Red Blood Count 3.71 L Red Cell Distribution Width 13.6 Sodium Level 140 Thyroid Stimulating Hormone (TSH) 0.471 Total Bilirubin 0.4 Total Protein 7.2 Triglycerides Level 133 White Blood Count 12.2 #H Medications Current Medications Ondansetron HCl (Zofran Inj) 4 mg Q6H PRN IV NAUSEA AND/OR VOMITING; Start at 06:30 Acetaminophen (Tylenol Tab) 650 mg Q6H PRN PO PAIN LEVEL 1-3 OR FEVER Last administered on 04/14/16t 05:56; Admin Dose 650 MG; Start 04/13/16 at 06:30 Acetaminophen (Tylenol Supp) 650 mg Q4H PRN [place] PAIN LEVEL 1-3 OR FEVER; Start 04/13/16 at 06:30 Pantoprazole (Protonix Iv) 40 mg DAILY@06 IV Last administered on 04/20/16 05: 47; Admin Dose 40 MG; Start 04/14/16 at 06:00 Heparin Sodium (Porcine) (Heparin (5000 Units/0.5 ml)) 5,000 unit Q12 SC Last administered on 04/20/16 09:42; Admin Dose 5,000 UNIT; Start 04/13/16 at 09:00 Acetaminophen (Tylenol Supp) 650 mg Q4H PRN [place] TEMP > 37C; Start 04/13/16 at 06 :30 Acetaminophen (Tylenol Liquid) 650 mg Q4H PRN PO TEMP > 37C Last administered on 04/19/16 08:19; Admin Dose 650 MG; Start 04/13/16 at 06:30 Meperidine HCl (Demerol) 12.5 mg Q4H PRN IV POST OPERATIVE SHIVERING; Start at 06:30 Meperidine HCl 25 mg 25 mg Q4H PRN IV POST OPERATIVE SHIVERING; Start 04/13/16 at 06:30 Piperacillin Sod/ Tazobactam Sod 100 ml @ 25 mls/hr TID@02,10,18 IVPB Last administered on 04/20/16 09:41; Admin Dose 25 MLS/HR; Start 04/13/16 at 18:00 Fentanyl/Dextrose (D5W) 100 ml @ 2.5 mls/hr TITRATE IV Last administered on 04:52; Admin Dose 5.5 MLS/HR; Start 04/13/16 at 15:30 Morphine Sulfate 2 mg 2 mg Q3H PRN IV PAIN Last administered on 04/19/16 04:09 ; Admin Dose 2 MG; Start 04/13/16 at 15:25 Propofol (Diprivan) 100 ml @ 2.55 mls/hr Q12H IV Last administered on 10:36; Admin Dose 25.5 MLS/HR; Start 04/13/16 at 17:30 Aspirin (Aspirin) 81 mg DAILY NGT Last administered on 04/19/16 08:19; Admin Dose 81 MG; Start 04/14/16 at 14:00 Atorvastatin Calcium 20 mg 20 mg HS PO Last administered on 04/18/16 20:12; Admin Dose 20 MG; Start 04/14/16 at 21:00 Dextrose/Sodium Chloride (D5-1/2ns) 1,000 ml @ 100 mls/hr Q10H IV Last administered on 04/20/16 11:03; Admin Dose 100 MLS/HR; Start 04/14/16 at 15:30 Metoprolol Tartrate (Lopressor) 25 mg BID NGT Last administered on 04/19/16 08 :20; Admin Dose 25 MG; Start 04/15/16 at 21:00 Metoclopramide HCl (Reglan) 5 mg Q6 IV Last administered on 04/20/16 05:47; Admin Dose 5 MG; Start 04/15/16 at 18:00 Carvedilol (Coreg) 6.25 mg BID PO ; Start 04/19/16 at 21:00 Lisinopril (Zestril) 2.5 mg BID GTB ; Start 04/19/16 at 21:00 Amiodarone HCl (Cordarone) 200 mg DAILY GTB Last administered on 04/19/16 14: 41; Admin Dose 200 MG; Start 04/19/16 at 14:00 Metoprolol Tartrate 2.5 mg 2.5 mg Q6 PRN IV ELEVATED BLOOD PRESSURE; Start at 20:00 Potassium Chloride (KCl 20 MEQ/50 ML SW) 50 ml @ 25 mls/hr ONCE IVPB ; Start at 11:05; Stop 04/20/16 at 13:04 Assessment/Plan Chief Complaint/Hosp Course IMPRESSION: 1. Acute respiratory failure, hypoxemic. Possible aspiration pneumonia 2. Status post ventricular fibrillation cardiac arrest. 3. Status post hypothermia protocol. 4. Methamphetamine abuse. 5. Encephalopathy. Possibly toxic metabolic RECOMMENDATIONS: 1. Status post extubation stable pulmonary standpoint 2. Continue antibiotics. 3. Cardiology followup noted. 4. Aspiration precautions, speech therapy evaluation 5. Resolving encephalopathy will DC fentanyl drip 6. Physical therapy evaluation Transfer to telemetry floor Problems: SHELLEY AVILA MD, [facility] Apr 20, 2016 11:20
[2016-04-20] MEDS: METOPROLOL 5 MG INJ IV PRN ×2 (13:22→19:05)
--- NOTE | 2016-04-20 13:43 | PN ---
Date/Time of Note Date/Time of Note DATE: 04/20/16 TIME: 13:42 Assessment/Plan VTE Prophylaxis VTE Prophylaxis Intervention: SCD's Lines/Catheters IV Catheter Type (from Nrs): Peripheral IV Urinary Cath still in place: Yes Reason Cath still needed: urinary retention Assessment/Plan Assessment/Plan Cardiac arrest Ventricular fibrillation Severe cardiomyopathy with ejection fraction 25% SIRS Sinus tachycardia Methamphetamine use Elevated troponins -s/p diuretics continue cardiac meds possible AICD once recovers, though, with some heistation based on her history of drug use No evidecne of ACS - +trops due to arrest Subjective 24 Hr Interval Summary Free Text/Dictation the patient with no chagne overnight but confused Exam/Review of Systems Vital Signs Vitals Vital Signs Date Time Temp Pulse Resp B/P Pulse Ox O2 Delivery O2 Flow Rate FiO2 04/20/16 10:30 105/66 Nasal Cannula 2.0 04/20/16 10:00 120 04/20/16 08:00 98.6 04/20/16 07:30 21 04/20/16 06:00 100 04/19/16 15:39 30 Intake and Output 04/19/16 04/19/16 04/20/16 15:00 23:00 07:00 Intake Total 1327.43 ml 1052.99 ml 841.0 ml Output Total 1360 ml 3620 ml 950 ml Balance -32.57 ml -2567.01 ml -109.0 ml Results Result Diagram: 04/20/16 0400 04/20/16 0400 Results 24 hrs Laboratory Tests Test 04/19/16 14:20 04/19/16 19:52 04/20/16 04:00 04/20/16 07:00 Arterial Blood HCO3 20.5 L 26.2 H Arterial Blood Base Excess -3.8 L 1.3 Arterial Blood Oxygen Saturation 98.6 H 99.1 H Colton Test ACCEPTAB ACCEPTAB Arterial Blood Gas Puncture Site Right Radial Right Radial Arterial Blood Carboxyhemoglobin 0.3 0.3 Arterial Blood Date Drawn 04/19/2016 2:50:32 PM 04/20/2016 7:30:00 AM Arterial Blood Methemoglobin 0.3 0.2 Arterial Blood pCO2 (Temp correct) 34.7 L 42.8 Arterial Blood pH (Temp corrected) 7.389 7.405 Arterial Blood pO2 (Temp corrected) 148.0 H 187.4 H Blood Gas A-a O2 Differential 25.1 H 19.6 Blood Gas Actual Respiration Rate 16 Blood Gas Low PEEP Setting 5.0 Blood Gas Modality VENT - CPAP NASAL CANNULA Blood Gas Notified Time 04/19/2016 3:07:11 PM 04/20/2016 7:47:00 AM Blood Gas Notified Whom JLD JLD Blood Gas Pressure Support 10 Blood Gas Specimen Source Blood arterial Blood arterial Blood Gas Temperature 37.0 37.0 FiO2 30.0 36.0 Oxyhemoglobin Percent 98.0 98.6 Total Hemoglobin 11.5 L 13.4 Urine Test NEGATIVE Alanine Aminotransferase (ALT/SGPT) 84 H Albumin 3.4 Albumin/Globulin Ratio 0.89 Alkaline Phosphatase 238 H Anion Gap 16 Aspartate Amino Transf (AST/SGOT) 128 H Basophils # 0.0 Basophils % 0.4 Blood Urea Nitrogen 3 L Calcium Level 8.8 Carbon Dioxide Level 25 Chloride Level 103 Cholesterol Level 133 Cholesterol/HDL Ratio 3.5 Creatinine 0.51 Direct Bilirubin 0.00 Eosinophils # 0.3 Eosinophils % 2.1 Free Thyroxine 1.35 Globulin 3.80 H Glucose Level 77 HDL Cholesterol 38 Hematocrit 32.7 #L Hemoglobin 11.0 L Hemoglobin A1c 5.0 Indirect Bilirubin 0.4 LDL Cholesterol, Calculated 68 Lymphocytes # 1.7 Lymphocytes % 13.7 L Magnesium Level 2.1 Mean Corpuscular Hemoglobin 29.7 Mean Corpuscular Hemoglobin Concent 33.7 Mean Corpuscular Volume 88.2 Mean Platelet Volume 9.5 Monocytes # 1.2 H Monocytes % 10.0 Neutrophils # 9.0 H Neutrophils % 73.8 Nucleated Red Blood Cells # 0.0 Nucleated Red Blood Cells % 0.0 Phosphorus Level 3.3 Platelet Count 324 # Potassium Level 3.6 Red Blood Count 3.71 L Red Cell Distribution Width 13.6 Sodium Level 140 Thyroid Stimulating Hormone (TSH) 0.471 Total Bilirubin 0.4 Total Protein 7.2 Triglycerides Level 133 White Blood Count 12.2 #H Medications Medications Current Medications Ondansetron HCl (Zofran Inj) 4 mg Q6H PRN IV NAUSEA AND/OR VOMITING; Start at 06:30 Acetaminophen (Tylenol Tab) 650 mg Q6H PRN PO PAIN LEVEL 1-3 OR FEVER Last administered on 04/14/16t 05:56; Admin Dose 650 MG; Start 04/13/16 at 06:30 Acetaminophen (Tylenol Supp) 650 mg Q4H PRN [place] PAIN LEVEL 1-3 OR FEVER; Start 04/13/16 at 06:30 Pantoprazole (Protonix Iv) 40 mg DAILY@06 IV Last administered on 04/20/16 05: 47; Admin Dose 40 MG; Start 04/14/16 at 06:00 Heparin Sodium (Porcine) (Heparin (5000 Units/0.5 ml)) 5,000 unit Q12 SC Last administered on 04/20/16 09:42; Admin Dose 5,000 UNIT; Start 04/13/16 at 09:00 Acetaminophen (Tylenol Supp) 650 mg Q4H PRN [place] TEMP > 37C; Start 04/13/16 at 06 :30 Acetaminophen (Tylenol Liquid) 650 mg Q4H PRN PO TEMP > 37C Last administered on 04/19/16 08:19; Admin Dose 650 MG; Start 04/13/16 at 06:30 Meperidine HCl (Demerol) 12.5 mg Q4H PRN IV POST OPERATIVE SHIVERING; Start at 06:30 Meperidine HCl 25 mg 25 mg Q4H PRN IV POST OPERATIVE SHIVERING; Start 04/13/16 at 06:30 Piperacillin Sod/ Tazobactam Sod 100 ml @ 25 mls/hr TID@02,10,18 IVPB Last administered on 04/20/16 09:41; Admin Dose 25 MLS/HR; Start 04/13/16 at 18:00 Fentanyl/Dextrose (D5W) 100 ml @ 2.5 mls/hr TITRATE IV Last administered on 04:52; Admin Dose 5.5 MLS/HR; Start 04/13/16 at 15:30 Morphine Sulfate 2 mg 2 mg Q3H PRN IV PAIN Last administered on 04/19/16 04:09 ; Admin Dose 2 MG; Start 04/13/16 at 15:25 Propofol (Diprivan) 100 ml @ 2.55 mls/hr Q12H IV Last administered on 10:36; Admin Dose 25.5 MLS/HR; Start 04/13/16 at 17:30 Aspirin (Aspirin) 81 mg DAILY NGT Last administered on 04/19/16 08:19; Admin Dose 81 MG; Start 04/14/16 at 14:00 Atorvastatin Calcium 20 mg 20 mg HS PO Last administered on 04/18/16 20:12; Admin Dose 20 MG; Start 04/14/16 at 21:00; Status Future Hold Dextrose/Sodium Chloride (D5-1/2ns) 1,000 ml @ 100 mls/hr Q10H IV Last administered on 04/20/16 11:03; Admin Dose 100 MLS/HR; Start 04/14/16 at 15:30 Metoprolol Tartrate (Lopressor) 25 mg BID NGT Last administered on 04/19/16 08 :20; Admin Dose 25 MG; Start 04/15/16 at 21:00 Metoclopramide HCl (Reglan) 5 mg Q6 IV Last administered on 04/20/16 05:47; Admin Dose 5 MG; Start 04/15/16 at 18:00 Carvedilol (Coreg) 6.25 mg BID PO ; Start 04/19/16 at 21:00 Lisinopril (Zestril) 2.5 mg BID GTB ; Start 04/19/16 at 21:00 Amiodarone HCl (Cordarone) 200 mg DAILY GTB Last administered on 04/19/16 14: 41; Admin Dose 200 MG; Start 04/19/16 at 14:00 Metoprolol Tartrate (Lopressor) 2.5 mg Q6 PRN IV ELEVATED BLOOD PRESSURE Last administered on 04/20/16 13:22; Admin Dose 2.5 MG; Start 04/19/16 at 20:00 KAYLIN BOLANOS MD Apr 20, 2016 13:43
--- NOTE | 2016-04-20 16:38 | CONS ---
DATE OF ADMISSION: 04/13/2016 DATE OF CONSULTATION: 04/20/2016 TYPE OF CONSULTATION: Palliative care. HISTORY OF PRESENT ILLNESS: This is a 20-year-old female who presented to the emergency room at [facility] brought in by paramedics. The patient apparently sustained a cardiac arrest. She w as intubated in the emergency room and was transferred to the intensive care unit. Since that time when I examined patient her tox screen has come back positive for methamphetamine. She remains intub ated at this time. I am asked to speak to family members in so far as her current critical conditio n, long-term care and hopefully patient will tolerate extubation and will consider some kind of an i npatient treatment program. MEDICATIONS: Please refer to reconciliation sheet. ALLERGIES: NO KNOWN DRUG ALLERGIES. MAJOR MEDICAL PROBLEMS IN THE PAST: Unknown. SOCIAL HISTORY: According to family members, she has a longstanding history of methamphetamine and alcohol use and she is a smoker. REVIEW OF SYSTEMS: Cannot be obtained. PHYSICAL EXAMINATION: VITAL SIGNS: Blood pressure 105/66, pulse 120, respirations of 18, temperature 98.6. GENERAL: The patient is sedated at this time. She appears to be normocephalic and atraumatic. Ani cteric and acyanotic. CHEST: Shows inspiratory and expiratory distant breath sounds without rales, rhonchi, wheezing, or rubs. LABORATORIES: White blood cell count of 12.2, MCV of 88.2, platelet count of 324,000. Serum chemis tries: Serum sodium 140, potassium 3.6, chloride 103, bicarbonate 25, BUN of 3, creatinine 0.51. A ST 128, ALT 84, alkaline phosphatase 238. ASSESSMENT AND PLAN: This is a critically ill 20-year-old female witnessed cardiac arrest, intubate d in the ICU. I have had a long family conversation. At this time she appears to be improving enough that she may be extubated by tomorrow. I will speak to family members in more detail at that time. What they have told me, is per history of present illness. They appear to be devastated by her cur rent medical course but the last time they had seen her was approximately 1 year ago. The patient d oes have a 6-year-old daughter who lives with parents. Will follow her close and further recommendat ions continued on her course. Dictated By: DELMER WRIGHT MD, LP/HARINDER Conf#: [id number] DID#: [id number]
--- NOTE | 2016-04-20 16:48 | PN ---
DATE: 04/20/2016 I have had a conversation with patient's family. Mother and father at the bedside of patient. She does not recall anything as to why she was brought to the hospital totally amnestic. She is having chest pain secondary to cardiopulmonary resuscitation. She appears to be very comfortable otherwise . I have told her that we will probably ambulate her and she will be moved out of the intensive car e unit per hospitalist's decision. I will continue to follow her daily and reorient her as to why s he was admitted to the hospital and scott family members involved with her care. Dictated By: DELMER WRIGHT MD LP/NTS Conf#: [id number] DID#: [id number]
[2016-04-20] MEDS: PROPOFOL 100 ML IV SCH (17:30)
[2016-04-21] VITALS (19 sets, daily range): BP systolic 92–126; BP diastolic 50–90; PULSE 93–132; RESP 15–27
[2016-04-21] MEDS: PIPER-TAZO 3.375 GM IV (PMX) 100 ML IVPB SCH ×3 (01:37→18:14)
[2016-04-21 04:55] LABS: BASOPHIL # 0.1 10^3/ul (0.0-0.1); BASOPHILS % 0.7 % (0.0-2.0); EOSINOPHILS # 0.4 10^3/ul (0.0-0.5); EOSINOPHILS % 3.9 % (0.0-7.0); HEMATOCRIT 34.4 % (37.0-47.0); HEMOGLOBIN 11.5 g/dl (12.0-16.0); LYMPHOCYTES % 17.4 % (15.0-51.0); MEAN CORPUSCULAR HEMOGLOBIN 29.3 pg (29.0-33.0); MEAN CORPUSCULAR HGB CONC 33.5 g/dl (32.0-37.0); MEAN CORPUSCULAR VOLUME 87.3 fl (82.0-101.0); MEAN PLATELET VOLUME 8.8 fl (7.4-10.4); MONOCYTE # 1.5 10^3/ul (0.3-0.9); MONOCYTES % 12.7 % (0.0-11.0); NEUTROPHIL # 7.5 10^3/ul (1.6-7.5); NEUTROPHILS % 65.3 % (39.0-77.0); PLATELET COUNT 441 10^3/UL (140-440); RED BLOOD COUNT 3.94 10^6/ul (4.20-5.40); RED CELL DISTRIBUTION WIDTH 13.8 % (11.5-14.5); UNCORRECTED WBC 11.4 10^3/ul (4.8-10.8); WHITE BLOOD COUNT 11.4 10^3/ul (4.8-10.8)
[2016-04-21 05:00] LABS: CONDITION 1
[2016-04-21 05:02] LABS: ALBUMIN 3.5 g/dl (3.3-4.9)
[2016-04-21 05:03] LABS: POTASSIUM 3.5 mmol/L (3.5-5.1)
[2016-04-21 05:05] LABS: ALBUMIN/GLOBULIN RATIO 0.87; BILIRUBIN,INDIRECT 0.3 mg/dl (0-1.1); BILIRUBIN,TOTAL 0.3 mg/dl (0.2-1.3); CALCIUM 9.1 mg/dl (8.4-10.2); CREATININE 0.62 mg/dl (0.44-1.00); TOTAL PROTEIN 7.5 g/dl (6.1-8.1)
[2016-04-21 05:10] LABS: PHOSPHORUS 3.4 mg/dl (2.5-4.9)
[2016-04-21] MEDS: PROPOFOL 100 ML IV SCH ×2 (05:30→17:30)
[2016-04-21] MEDS: PANTOPRAZOLE 40 MG INJ IV SCH (05:51)
[2016-04-21] MEDS: METOCLOPRAMIDE 10 MG INJ IV SCH ×3 (05:51→18:13)
[2016-04-21] MEDS: FUROSEMIDE 20 MG INJ IV SCH ×2 (06:01→18:00)
[2016-04-21] MEDS: DEXTROSE 5%-0.45% NACL 1,000 ML IV SCH ×2 (06:04→17:04)
--- NOTE | 2016-04-21 08:43 | PN ---
Date/Time of Note Date/Time of Note DATE: 04/21/16 TIME: 08:37 Assessment/Plan VTE Prophylaxis VTE Prophylaxis Intervention: LMWH, SCD's Lines/Catheters IV [facility] Central Line Central line still needed: Yes Urinary Cath still in place: Yes Reason Cath still needed: other (indicate) Assessment/Plan Chief Complaint/Hosp Course 1. Status post cardiopulmonary arrest secondary to ventricular fibrillation. Cardiology following. Was extubated on 04/19/2016. 2. Acute respiratory failure (hypoxic) secondary to cardiopulmonary arrest. S/ P mechanical ventilation. Was extubated on 04/19/2016. 3. Possible underlying aspiration pneumonia. Continue antibiotics. 4. S/P sepsis secondary to underlying urinary tract infection. Continue antibiotics. No evidence of any septic shock. 5. Severe cardiomyopathy. Ejection fraction of 25%, most probably secondary to substance abuse. Cardiology following. 6. Elevated troponins. Troponin leak secondary to cardiac arrest. The patient is being followed by cardiology. 7. Substance abuse. 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 Will advise on cessation. 8. Acute encephalopathy. Most probably metabolic in origin. Brain CT from 04/13 negative fo any acute findings. 9. Transaminitis. Etiology unclear. Will trend LFTs. Avoid hepatotoxic medications. 10. Normocytic normochromic anemia. Monitor H&H closely. Transfuse as needed. 11. Fluids, electrolytes, and nutrition. The patient currently n.p.o. Failed ST evaluation. Continue IVFs. 12. Deep venous thrombosis prophylaxis. Bilateral sequential compression devices and subcutaneous Lovenox. 13. Gastrointestinal prophylaxis. Proton pump inhibitors. 14. Plan. Move the patient to telemetry floor. Replete potassium to keep levels at 4.0. Hold statins because of transaminitis. Continue NPO. Physical therapy evaluation. The patient continues to be NPO because of dysphagia. The patient needs to be continued on cardiac medications. Hence will insert an NG tube to give the patient her medications. Case discussed with Dr. Schrader. Critical care time 35 minutes. Problems: Subjective 24 Hr Interval Summary Free Text/Dictation The patient remains confused. Failed swallow evaluation. Exam/Review of Systems Vital Signs Vitals Vital Signs Date Time Temp Pulse Resp B/P Pulse Ox O2 Delivery O2 Flow Rate FiO2 04/21/16 06:38 100 Room Air 04/21/16 06:00 101 20 110/50 2.0 04/21/16 04:00 98.6 04/19/16 15:39 30 Intake and Output 04/20/16 04/20/16 04/21/16 15:00 23:00 07:00 Intake Total 150 ml 1400 ml 800 ml Output Total 1420 ml 1100 ml 425 ml Balance -1270 ml 300 ml 375 ml Exam GENERAL: This is a well-built, well-nourished female lying in bed in no apparent distress. HEENT: Head normocephalic and atraumatic. Eyes: Anicteric sclerae. Conjunctivae clear. ENT: Nasal septum is midline. Oral mucosa is dry. RESPIRATORY: Bilateral diminished breath sounds. No use of accessory muscles of respiration. CARDIAC: Regular rate and rhythm. Sinus tachycardia on the monitor. ABDOMEN: Soft, nontender and nondistended. Bowel sounds positive in all 4 quadrants. GENITOURINARY: The patient has a Thompson catheter in place. EXTREMITIES: No cyanosis, no clubbing. Trace pedal edema. Peripheral pulses palpable. NEUROLOGIC: The patient is awake and alert. Oriented X 1-2. Results Result Diagram: 04/21/16 0400 04/21/16 0400 Results 24 hrs Laboratory Tests Test 04/21/16 04:00 Alanine Aminotransferase (ALT/SGPT) 83 H Albumin 3.5 Albumin/Globulin Ratio 0.87 Alkaline Phosphatase 214 H Anion Gap 15 Aspartate Amino Transf (AST/SGOT) 100 H Basophils # 0.1 Basophils % 0.7 Blood Urea Nitrogen 6 L Calcium Level 9.1 Carbon Dioxide Level 29 Chloride Level 102 Creatinine 0.62 Direct Bilirubin 0.00 Eosinophils # 0.4 Eosinophils % 3.9 Globulin 4.00 H Glucose Level 89 Hematocrit 34.4 L Hemoglobin 11.5 L Indirect Bilirubin 0.3 Lymphocytes # 2.0 Lymphocytes % 17.4 Magnesium Level 2.0 Mean Corpuscular Hemoglobin 29.3 Mean Corpuscular Hemoglobin Concent 33.5 Mean Corpuscular Volume 87.3 Mean Platelet Volume 8.8 Monocytes # 1.5 H Monocytes % 12.7 H Neutrophils # 7.5 Neutrophils % 65.3 Nucleated Red Blood Cells # 0.0 Nucleated Red Blood Cells % 0.0 Phosphorus Level 3.4 Platelet Count 441 #H Potassium Level 3.5 Red Blood Count 3.94 L Red Cell Distribution Width 13.8 Sodium Level 142 Total Bilirubin 0.3 Total Protein 7.5 White Blood Count 11.4 H Medications Medications Current Medications Ondansetron HCl (Zofran Inj) 4 mg Q6H PRN IV NAUSEA AND/OR VOMITING; Start at 06:30 Acetaminophen (Tylenol Tab) 650 mg Q6H PRN PO PAIN LEVEL 1-3 OR FEVER Last administered on 04/14/16 05:56; Admin Dose 650 MG; Start 04/13/16 at 06:30 Acetaminophen (Tylenol Supp) 650 mg Q4H PRN PA PAIN LEVEL 1-3 OR FEVER; Start 04/13/16 at 06:30 Pantoprazole (Protonix Iv) 40 mg DAILY@06 IV Last administered on 04/21/16 05: 51; Admin Dose 40 MG; Start 04/14/16 at 06:00 Heparin Sodium (Porcine) (Heparin (5000 Units/0.5 ml)) 5,000 unit Q12 SC Last administered on 04/20/16 09:42; Admin Dose 5,000 UNIT; Start 04/13/16 at 09:00 Acetaminophen (Tylenol Supp) 650 mg Q4H PRN PA TEMP > 37C; Start 04/13/16 at 06 :30 Acetaminophen (Tylenol Liquid) 650 mg Q4H PRN PO TEMP > 37C Last administered on 04/19/16 08:19; Admin Dose 650 MG; Start 04/13/16 at 06:30 Meperidine HCl (Demerol) 12.5 mg Q4H PRN IV POST OPERATIVE SHIVERING; Start at 06:30 Meperidine HCl 25 mg 25 mg Q4H PRN IV POST OPERATIVE SHIVERING; Start 04/13/16 at 06:30 Piperacillin Sod/ Tazobactam Sod 100 ml @ 25 mls/hr TID@02,10,18 IVPB Last administered on 04/21/16 01:37; Admin Dose 25 MLS/HR; Start 04/13/16 at 18:00 Fentanyl/Dextrose (D5W) 100 ml @ 2.5 mls/hr TITRATE IV Last administered on 04:52; Admin Dose 5.5 MLS/HR; Start 04/13/16 at 15:30; Status Future Hold Morphine Sulfate 2 mg 2 mg Q3H PRN IV PAIN Last administered on 04/19/16 04:09 ; Admin Dose 2 MG; Start 04/13/16 at 15:25 Propofol (Diprivan) 100 ml @ 2.55 mls/hr Q12H IV Last administered on 10:36; Admin Dose 25.5 MLS/HR; Start 04/13/16 at 17:30 Aspirin (Aspirin) 81 mg DAILY NGT Last administered on 04/19/16 08:19; Admin Dose 81 MG; Start 04/14/16 at 14:00 Atorvastatin Calcium 20 mg 20 mg HS PO Last administered on 04/18/16 20:12; Admin Dose 20 MG; Start 04/14/16 at 21:00; Status Future Hold Dextrose/Sodium Chloride (D5-1/2ns) 1,000 ml @ 100 mls/hr Q10H IV Last administered on 04/21/16 06:04; Admin Dose 100 MLS/HR; Start 04/14/16 at 15:30 Metoprolol Tartrate (Lopressor) 25 mg BID NGT Last administered on 04/19/16 08 :20; Admin Dose 25 MG; Start 04/15/16 at 21:00 Metoclopramide HCl (Reglan) 5 mg Q6 IV Last administered on 04/21/16 05:51; Admin Dose 5 MG; Start 04/15/16 at 18:00 Carvedilol (Coreg) 6.25 mg BID PO ; Start 04/19/16 at 21:00 Lisinopril (Zestril) 2.5 mg BID GTB ; Start 04/19/16 at 21:00 Amiodarone HCl (Cordarone) 200 mg DAILY GTB Last administered on 04/19/16 14: 41; Admin Dose 200 MG; Start 04/19/16 at 14:00 Metoprolol Tartrate (Lopressor) 2.5 mg Q6 PRN IV ELEVATED BLOOD PRESSURE Last administered on 04/20/16 19:05; Admin Dose 2.5 MG; Start 04/19/16 at 20:00 TRISTON STEINBERG NP Apr 21, 2016 08:43
--- NOTE | 2016-04-21 09:06 | CONS ---
Date/Time of Note Date/Time of Note DATE: 04/21/16 TIME: 09:03 Consult Date/Type/Reason Admit Date/Time Apr 13, 2016 at 06:25 Type of Consultation: pulmonary Subjective Drowsy but arousable Failed swallow evaluation Remains hemodynamically stable No evidence of respiratory distress Objective Vital Signs Date Time Temp Pulse Resp B/P Pulse Ox O2 Delivery O2 Flow Rate FiO2 04/21/16 06:38 100 Room Air 04/21/16 06:00 101 20 110/50 2.0 04/21/16 04:00 98.6 04/19/16 15:39 30 Intake and Output 04/20/16 04/20/16 04/21/16 15:00 23:00 07:00 Intake Total 150 ml 1400 ml 800 ml Output Total 1420 ml 1100 ml 425 ml Balance -1270 ml 300 ml 375 ml Results/Medications Result Diagram: 04/21/16 0400 04/21/16 0400 Results 24 hrs Laboratory Tests Test 04/21/16 04:00 Alanine Aminotransferase (ALT/SGPT) 83 H Albumin 3.5 Albumin/Globulin Ratio 0.87 Alkaline Phosphatase 214 H Anion Gap 15 Aspartate Amino Transf (AST/SGOT) 100 H Basophils # 0.1 Basophils % 0.7 Blood Urea Nitrogen 6 L Calcium Level 9.1 Carbon Dioxide Level 29 Chloride Level 102 Creatinine 0.62 Direct Bilirubin 0.00 Eosinophils # 0.4 Eosinophils % 3.9 Globulin 4.00 H Glucose Level 89 Hematocrit 34.4 L Hemoglobin 11.5 L Indirect Bilirubin 0.3 Lymphocytes # 2.0 Lymphocytes % 17.4 Magnesium Level 2.0 Mean Corpuscular Hemoglobin 29.3 Mean Corpuscular Hemoglobin Concent 33.5 Mean Corpuscular Volume 87.3 Mean Platelet Volume 8.8 Monocytes # 1.5 H Monocytes % 12.7 H Neutrophils # 7.5 Neutrophils % 65.3 Nucleated Red Blood Cells # 0.0 Nucleated Red Blood Cells % 0.0 Phosphorus Level 3.4 Platelet Count 441 #H Potassium Level 3.5 Red Blood Count 3.94 L Red Cell Distribution Width 13.8 Sodium Level 142 Total Bilirubin 0.3 Total Protein 7.5 White Blood Count 11.4 H Medications Current Medications Ondansetron HCl (Zofran Inj) 4 mg Q6H PRN IV NAUSEA AND/OR VOMITING; Start at 06:30 Acetaminophen (Tylenol Tab) 650 mg Q6H PRN PO PAIN LEVEL 1-3 OR FEVER Last administered on 04/14/16 05:56; Admin Dose 650 MG; Start 04/13/16 at 06:30 Acetaminophen (Tylenol Supp) 650 mg Q4H PRN [place] PAIN LEVEL 1-3 OR FEVER; Start 04/13/16 at 06:30 Pantoprazole (Protonix Iv) 40 mg DAILY@06 IV Last administered on 04/21/16 05: 51; Admin Dose 40 MG; Start 04/14/16 at 06:00 Heparin Sodium (Porcine) (Heparin (5000 Units/0.5 ml)) 5,000 unit Q12 SC Last administered on 04/20/16 09:42; Admin Dose 5,000 UNIT; Start 04/13/16 at 09:00 Acetaminophen (Tylenol Supp) 650 mg Q4H PRN MA TEMP > 37C; Start 04/13/16 at 06 :30 Acetaminophen (Tylenol Liquid) 650 mg Q4H PRN PO TEMP > 37C Last administered on 04/19/16 08:19; Admin Dose 650 MG; Start 04/13/16 at 06:30 Meperidine HCl (Demerol) 12.5 mg Q4H PRN IV POST OPERATIVE SHIVERING; Start at 06:30 Meperidine HCl 25 mg 25 mg Q4H PRN IV POST OPERATIVE SHIVERING; Start 04/13/16 at 06:30 Piperacillin Sod/ Tazobactam Sod 100 ml @ 25 mls/hr TID@02,10,18 IVPB Last administered on 04/21/16 01:37; Admin Dose 25 MLS/HR; Start 04/13/16 at 18:00 Fentanyl/Dextrose (D5W) 100 ml @ 2.5 mls/hr TITRATE IV Last administered on 04:52; Admin Dose 5.5 MLS/HR; Start 04/13/16 at 15:30; Status Future Hold Morphine Sulfate 2 mg 2 mg Q3H PRN IV PAIN Last administered on 04/19/16 04:09 ; Admin Dose 2 MG; Start 04/13/16 at 15:25 Propofol (Diprivan) 100 ml @ 2.55 mls/hr Q12H IV Last administered on 10:36; Admin Dose 25.5 MLS/HR; Start 04/13/16 at 17:30 Aspirin (Aspirin) 81 mg DAILY NGT Last administered on 04/19/16 08:19; Admin Dose 81 MG; Start 04/14/16 at 14:00 Atorvastatin Calcium 20 mg 20 mg HS PO Last administered on 04/18/16 20:12; Admin Dose 20 MG; Start 04/14/16 at 21:00; Status Future Hold Dextrose/Sodium Chloride (D5-1/2ns) 1,000 ml @ 100 mls/hr Q10H IV Last administered on 04/21/16 06:04; Admin Dose 100 MLS/HR; Start 04/14/16 at 15:30 Metoprolol Tartrate (Lopressor) 25 mg BID NGT Last administered on 04/19/16 08 :20; Admin Dose 25 MG; Start 04/15/16 at 21:00 Metoclopramide HCl (Reglan) 5 mg Q6 IV Last administered on 04/21/16 05:51; Admin Dose 5 MG; Start 04/15/16 at 18:00 Carvedilol (Coreg) 6.25 mg BID PO ; Start 04/19/16 at 21:00 Lisinopril (Zestril) 2.5 mg BID GTB ; Start 04/19/16 at 21:00 Amiodarone HCl (Cordarone) 200 mg DAILY GTB Last administered on 04/19/16 14: 41; Admin Dose 200 MG; Start 04/19/16 at 14:00 Metoprolol Tartrate 2.5 mg 2.5 mg Q6 PRN IV ELEVATED BLOOD PRESSURE Last administered on 04/20/16 19:05; Admin Dose 2.5 MG; Start 04/19/16 at 20:00 Potassium Chloride/Dextrose (KCl/D5W) 265 ml @ 88.333 mls/ hr ONCE ONCE IVPB ; Start 04/21/16 at 10:00; Stop 04/21/16 at 12:59 Assessment/Plan Chief Complaint/Hosp Course IMPRESSION: 1. Acute respiratory failure, hypoxemic. Possible aspiration pneumonia 2. Status post ventricular fibrillation cardiac arrest. 3. Status post hypothermia protocol. 4. Methamphetamine abuse. 5. Encephalopathy. Possibly toxic metabolic RECOMMENDATIONS: 1. Status post extubation stable pulmonary standpoint 2. Continue antibiotics. 3. Cardiology followup noted. 4. Aspiration precautions, speech therapy evaluation 5. Resolving encephalopathy will DC fentanyl drip 6. Physical therapy evaluation 7. Consider nasogastric tube feeding Transfer to telemetry floor Problems: SHELLEY AVILA MD, [facility] Apr 21, 2016 09:06
[2016-04-21] MEDS ORDERED: POTASSIUM CHLORIDE 30 MEQ in DEXTROSE 5% 250 ML IVPB ONE (10:00)
[2016-04-21] MEDS: ASPIRIN 81 MG TAB NGT SCH (12:27)
[2016-04-21] MEDS: LISINOPRIL 5 MG TAB GTB SCH ×2 (12:27→22:15)
[2016-04-21] MEDS: AMIODARONE 200 MG TAB GTB SCH (12:28)
[2016-04-21] MEDS: METOPROLOL 25 MG TAB NGT SCH ×2 (12:29→22:16)
[2016-04-21] MEDS: HEPARIN 5,000 UNIT/0.5 ML SYG SC SCH ×2 (12:55→22:20)
--- NOTE | 2016-04-21 13:34 | PN ---
Date/Time of Note Date/Time of Note DATE: 04/21/16 TIME: 13:33 Assessment/Plan VTE Prophylaxis VTE Prophylaxis Intervention: SCD's Lines/Catheters IV Catheter Type (from Nrs): Central Line Central line still needed: No Urinary Cath still in place: Yes Reason Cath still needed: urinary retention Assessment/Plan Assessment/Plan Cardiac arrest Ventricular fibrillation Severe cardiomyopathy with ejection fraction 25% SIRS Sinus tachycardia Methamphetamine use Elevated troponins -s/p diuretics > -i/o continue cardiac meds possible AICD once recovers, though, with some heistation based on her history of drug use > may be able to avoid as drug use may have been the etiology and may not be a good candidate. Possible life vest if beocmes necessary No evidecne of ACS - +trops due to arrest Subjective 24 Hr Interval Summary Free Text/Dictation The [pateitn wtih no cahnge Exam/Review of Systems Vital Signs Vitals Vital Signs Date Time Temp Pulse Resp B/P Pulse Ox O2 Delivery O2 Flow Rate FiO2 04/21/16 12:00 105 04/21/16 11:36 98 2.0 28 04/21/16 11:00 24 126/90 Room Air 04/21/16 07:00 98.8 Intake and Output 04/20/16 04/20/16 04/21/16 15:00 23:00 07:00 Intake Total 150 ml 1400 ml 800 ml Output Total 1420 ml 1100 ml 425 ml Balance -1270 ml 300 ml 375 ml Results Result Diagram: 04/21/16 0400 04/21/16 0400 Results 24 hrs Laboratory Tests Test 04/21/16 04:00 Alanine Aminotransferase (ALT/SGPT) 83 H Albumin 3.5 Albumin/Globulin Ratio 0.87 Alkaline Phosphatase 214 H Anion Gap 15 Aspartate Amino Transf (AST/SGOT) 100 H Basophils # 0.1 Basophils % 0.7 Blood Urea Nitrogen 6 L Calcium Level 9.1 Carbon Dioxide Level 29 Chloride Level 102 Creatinine 0.62 Direct Bilirubin 0.00 Eosinophils # 0.4 Eosinophils % 3.9 Globulin 4.00 H Glucose Level 89 Hematocrit 34.4 L Hemoglobin 11.5 L Indirect Bilirubin 0.3 Lymphocytes # 2.0 Lymphocytes % 17.4 Magnesium Level 2.0 Mean Corpuscular Hemoglobin 29.3 Mean Corpuscular Hemoglobin Concent 33.5 Mean Corpuscular Volume 87.3 Mean Platelet Volume 8.8 Monocytes # 1.5 H Monocytes % 12.7 H Neutrophils # 7.5 Neutrophils % 65.3 Nucleated Red Blood Cells # 0.0 Nucleated Red Blood Cells % 0.0 Phosphorus Level 3.4 Platelet Count 441 #H Potassium Level 3.5 Red Blood Count 3.94 L Red Cell Distribution Width 13.8 Sodium Level 142 Total Bilirubin 0.3 Total Protein 7.5 White Blood Count 11.4 H Medications Medications Current Medications Ondansetron HCl (Zofran Inj) 4 mg Q6H PRN IV NAUSEA AND/OR VOMITING; Start at 06:30 Acetaminophen (Tylenol Tab) 650 mg Q6H PRN PO PAIN LEVEL 1-3 OR FEVER Last administered on 04/14/16 05:56; Admin Dose 650 MG; Start 04/13/16 at 06:30 Acetaminophen (Tylenol Supp) 650 mg Q4H PRN OR PAIN LEVEL 1-3 OR FEVER; Start 04/13/16 at 06:30 Pantoprazole (Protonix Iv) 40 mg DAILY@06 IV Last administered on 04/21/16 05: 51; Admin Dose 40 MG; Start 04/14/16 at 06:00 Heparin Sodium (Porcine) (Heparin (5000 Units/0.5 ml)) 5,000 unit Q12 SC Last administered on 04/21/16 12:55; Admin Dose 5,000 UNIT; Start 04/13/16 at 09:00 Acetaminophen (Tylenol Supp) 650 mg Q4H PRN OR TEMP > 37C; Start 04/13/16 at 06 :30 Acetaminophen (Tylenol Liquid) 650 mg Q4H PRN PO TEMP > 37C Last administered on 04/19/16 08:19; Admin Dose 650 MG; Start 04/13/16 at 06:30 Meperidine HCl (Demerol) 12.5 mg Q4H PRN IV POST OPERATIVE SHIVERING; Start at 06:30 Meperidine HCl 25 mg 25 mg Q4H PRN IV POST OPERATIVE SHIVERING; Start 04/13/16 at 06:30 Piperacillin Sod/ Tazobactam Sod 100 ml @ 25 mls/hr TID@02,,18 IVPB Last administered on 04/21/16 12:57; Admin Dose 25 MLS/HR; Start 04/13/16 at 18:00 Fentanyl/Dextrose (D5W) 100 ml @ 2.5 mls/hr TITRATE IV Last administered on 04:52; Admin Dose 5.5 MLS/HR; Start 04/13/16 at 15:30; Status Future Hold Morphine Sulfate 2 mg 2 mg Q3H PRN IV PAIN Last administered on 04/19/16 04:09 ; Admin Dose 2 MG; Start 04/13/16 at 15:25 Propofol (Diprivan) 100 ml @ 2.55 mls/hr Q12H IV Last administered on 10:36; Admin Dose 25.5 MLS/HR; Start 04/13/16 at 17:30 Aspirin (Aspirin) 81 mg DAILY NGT Last administered on 04/21/16 12:27; Admin Dose 81 MG; Start 04/14/16 at 14:00 Atorvastatin Calcium 20 mg 20 mg HS PO Last administered on 04/18/16 20:12; Admin Dose 20 MG; Start 04/14/16 at 21:00; Status Future Hold Dextrose/Sodium Chloride (D5-1/2ns) 1,000 ml @ 100 mls/hr Q10H IV Last administered on 04/21/16 06:04; Admin Dose 100 MLS/HR; Start 04/14/16 at 15:30 Metoprolol Tartrate (Lopressor) 25 mg BID NGT Last administered on 04/21/16 12 :29; Admin Dose 25 MG; Start 04/15/16 at 21:00 Metoclopramide HCl (Reglan) 5 mg Q6 IV Last administered on 04/21/16 12:30; Admin Dose 5 MG; Start 04/15/16 at 18:00 Carvedilol (Coreg) 6.25 mg BID PO Last administered on 04/21/16 12:29; Admin Dose 6.25 MG; Start 04/19/16 at 21:00 Lisinopril (Zestril) 2.5 mg BID GTB Last administered on 04/21/16 12:27; Admin Dose 2.5 MG; Start 04/19/16 at 21:00 Amiodarone HCl (Cordarone) 200 mg DAILY GTB Last administered on 04/21/16 12: 28; Admin Dose 200 MG; Start 04/19/16 at 14:00 Metoprolol Tartrate (Lopressor) 2.5 mg Q6 PRN IV ELEVATED BLOOD PRESSURE Last administered on 04/20/16t 19:05; Admin Dose 2.5 MG; Start 04/19/16 at 20:00 KAYLIN BOLANOS MD Apr 21, 2016 13:34
[2016-04-21] MEDS ORDERED: INFLUENZA VIRUS VACCINE 0.5 ML SYG IM* ONE (15:30)
--- NOTE | 2016-04-21 17:13 | RADRPT ---
PROCEDURE: XR Chest. CLINICAL INDICATION: Check nasogastric tube position. TECHNIQUE: Single frontal view. COMPARISON: 04/20/2016. FINDINGS: The nasogastric tube has been inserted in satisfactory position within the stomach. The left subcla vian vein catheter remains in satisfactory position. There is mild interstitial disease bilaterally , unchanged. The heart size is normal. There is no pleural effusion. There is no pneumothorax. IMPRESSION: 1. Nasogastric tube tip in the stomach. 2. Left subclavian vein catheter in satisfactory position. 3. Mild interstitial disease bilaterally, unchanged. RPTAT: QQ .Roberto Monroy MD, Date Time Electronically viewed and signed by .Roberto Monroy MD, on 04/21/2016 17:12 .R/
[2016-04-22] VITALS (11 sets, daily range): BP systolic 104–122; BP diastolic 57–68; PULSE 102–116; RESP 18–20
[2016-04-22] MEDS: METOCLOPRAMIDE 10 MG INJ IV SCH ×4 (00:16→17:29)
[2016-04-22] MEDS: PIPER-TAZO 3.375 GM IV (PMX) 100 ML IVPB SCH ×2 (02:12→10:03)
[2016-04-22] MEDS: DEXTROSE 5%-0.45% NACL 1,000 ML IV SCH (04:24)
[2016-04-22] MEDS: PROPOFOL 100 ML IV SCH (05:30)
[2016-04-22] MEDS: PANTOPRAZOLE 40 MG INJ IV SCH (05:48)
[2016-04-22 07:23] LABS: PHOSPHORUS 3.2 mg/dl (2.5-4.9)
[2016-04-22 07:24] LABS: MAGNESIUM 1.9 mg/dl (1.7-2.5)
[2016-04-22 07:27] LABS: BASOPHIL # 0.1 10^3/ul (0.0-0.1); BASOPHILS % 0.7 % (0.0-2.0); EOSINOPHILS # 0.4 10^3/ul (0.0-0.5); EOSINOPHILS % 3.6 % (0.0-7.0); HEMATOCRIT 37.2 % (37.0-47.0); HEMOGLOBIN 12.7 g/dl (12.0-16.0); LYMPHOCYTES # 2.1 10^3/ul (0.8-2.9); MEAN CORPUSCULAR HGB CONC 34.2 g/dl (32.0-37.0); MEAN CORPUSCULAR VOLUME 87.7 fl (82.0-101.0); MEAN PLATELET VOLUME 8.7 fl (7.4-10.4); MONOCYTES % 8.7 % (0.0-11.0); NEUTROPHIL # 7.6 10^3/ul (1.6-7.5); PLATELET COUNT 406 10^3/UL (140-440); RED BLOOD COUNT 4.24 10^6/ul (4.20-5.40); RED CELL DISTRIBUTION WIDTH 13.9 % (11.5-14.5); UNCORRECTED WBC 11.2 10^3/ul (4.8-10.8); WHITE BLOOD COUNT 11.2 10^3/ul (4.8-10.8)
[2016-04-22 07:38] LABS: CONDITION 1
[2016-04-22 07:54] LABS: ALBUMIN 3.5 g/dl (3.3-4.9); POTASSIUM 3.5 mmol/L (3.5-5.1)
[2016-04-22 07:57] LABS: ALBUMIN/GLOBULIN RATIO 0.92; BILIRUBIN,INDIRECT 0.2 mg/dl (0-1.1); BILIRUBIN,TOTAL 0.2 mg/dl (0.2-1.3); CALCIUM 8.8 mg/dl (8.4-10.2); CREATININE 0.49 mg/dl (0.44-1.00); TOTAL PROTEIN 7.3 g/dl (6.1-8.1)
--- NOTE | 2016-04-22 08:11 | PN ---
Date/Time of Note Date/Time of Note DATE: 04/22/16 TIME: 08:10 Assessment/Plan VTE Prophylaxis VTE Prophylaxis Intervention: SCD's Lines/Catheters IV Catheter Type (from Nrs): Central Line Central line still needed: No Urinary Cath still in place: Yes Reason Cath still needed: urinary retention Assessment/Plan Assessment/Plan Cardiac arrest Ventricular fibrillation Severe cardiomyopathy with ejection fraction 25% SIRS Sinus tachycardia Methamphetamine use Elevated troponins -s/p diuretics > -i/o continue cardiac meds possible AICD once recovers, though, with some heistation based on her history of drug use > may be able to avoid as drug use may have been the etiology and may not be a good candidate. Possible life vest if beocmes necessary No evidecne of ACS - +trops due to arrest Subjective 24 Hr Interval Summary Free Text/Dictation The patient with no cahgne oveernight Exam/Review of Systems Vital Signs Vitals Vital Signs Date Time Temp Pulse Resp B/P Pulse Ox O2 Delivery O2 Flow Rate FiO2 04/22/16 04:34 105 04/22/16 01:45 96 21 04/22/16 00:20 98.2 20 108/57 04/21/16 17:59 2.0 04/21/16 13:00 Room Air Intake and Output 04/21/16 04/21/16 04/22/16 15:00 23:00 07:00 Intake Total 1565 ml 1420 ml Output Total 1300 ml 750 ml Balance 265 ml 670 ml Results Result Diagram: 04/22/16 0540 04/22/16 0540 Results 24 hrs Laboratory Tests Test 04/22/16 05:40 Alanine Aminotransferase (ALT/SGPT) 84 H Albumin 3.5 Albumin/Globulin Ratio 0.92 Alkaline Phosphatase 186 H Anion Gap 16 Aspartate Amino Transf (AST/SGOT) 88 H Basophils # 0.1 Basophils % 0.7 Blood Urea Nitrogen 7 Calcium Level 8.8 Carbon Dioxide Level 26 Chloride Level 101 Creatinine 0.49 Direct Bilirubin 0.00 Eosinophils # 0.4 Eosinophils % 3.6 Globulin 3.80 H Glucose Level 100 Hematocrit 37.2 Hemoglobin 12.7 Indirect Bilirubin 0.2 Lymphocytes # 2.1 Lymphocytes % 19.0 Magnesium Level 1.9 Mean Corpuscular Hemoglobin 30.0 Mean Corpuscular Hemoglobin Concent 34.2 Mean Corpuscular Volume 87.7 Mean Platelet Volume 8.7 Monocytes # 1.0 H Monocytes % 8.7 Neutrophils # 7.6 H Neutrophils % 68.0 Nucleated Red Blood Cells # 0.0 Nucleated Red Blood Cells % 0.0 Phosphorus Level 3.2 Platelet Count 406 Potassium Level 3.5 Red Blood Count 4.24 Red Cell Distribution Width 13.9 Sodium Level 139 Total Bilirubin 0.2 Total Protein 7.3 White Blood Count 11.2 H Medications Medications Current Medications Ondansetron HCl (Zofran Inj) 4 mg Q6H PRN IV NAUSEA AND/OR VOMITING; Start at 06:30 Acetaminophen (Tylenol Tab) 650 mg Q6H PRN PO PAIN LEVEL 1-3 OR FEVER Last administered on 04/14/16 05:56; Admin Dose 650 MG; Start 04/13/16 at 06:30 Acetaminophen (Tylenol Supp) 650 mg Q4H PRN OR PAIN LEVEL 1-3 OR FEVER; Start 04/13/16 at 06:30 Pantoprazole (Protonix Iv) 40 mg DAILY@06 IV Last administered on 04/22/16 05: 48; Admin Dose 40 MG; Start 04/14/16 at 06:00 Heparin Sodium (Porcine) (Heparin (5000 Units/0.5 ml)) 5,000 unit Q12 SC Last administered on 04/21/16 22:20; Admin Dose 5,000 UNIT; Start 04/13/16 at 09:00 Acetaminophen (Tylenol Supp) 650 mg Q4H PRN OR TEMP > 37C; Start 04/13/16 at 06 :30 Acetaminophen (Tylenol Liquid) 650 mg Q4H PRN PO TEMP > 37C Last administered on 04/19/16 08:19; Admin Dose 650 MG; Start 04/13/16 at 06:30 Meperidine HCl (Demerol) 12.5 mg Q4H PRN IV POST OPERATIVE SHIVERING; Start at 06:30 Meperidine HCl 25 mg 25 mg Q4H PRN IV POST OPERATIVE SHIVERING; Start 04/13/16 at 06:30 Piperacillin Sod/ Tazobactam Sod 100 ml @ 25 mls/hr TID@02,,18 IVPB Last administered on 04/22/16 02:12; Admin Dose 25 MLS/HR; Start 04/13/16 at 18:00 Fentanyl/Dextrose (D5W) 100 ml @ 2.5 mls/hr TITRATE IV Last administered on 04:52; Admin Dose 5.5 MLS/HR; Start 04/13/16 at 15:30; Status Future Hold Morphine Sulfate 2 mg 2 mg Q3H PRN IV PAIN Last administered on 04/19/16 04:09 ; Admin Dose 2 MG; Start 04/13/16 at 15:25 Propofol (Diprivan) 100 ml @ 2.55 mls/hr Q12H IV Last administered on 10:36; Admin Dose 25.5 MLS/HR; Start 04/13/16 at 17:30 Aspirin (Aspirin) 81 mg DAILY NGT Last administered on 04/21/16 12:27; Admin Dose 81 MG; Start 04/14/16 at 14:00 Atorvastatin Calcium 20 mg 20 mg HS PO Last administered on 04/18/16 20:12; Admin Dose 20 MG; Start 04/14/16 at 21:00; Status Future Hold Dextrose/Sodium Chloride (D5-1/2ns) 1,000 ml @ 100 mls/hr Q10H IV Last administered on 04/22/16 04:24; Admin Dose 100 MLS/HR; Start 04/14/16 at 15:30 Metoprolol Tartrate (Lopressor) 25 mg BID NGT Last administered on 04/21/16 22 :16; Admin Dose 25 MG; Start 04/15/16 at 21:00 Metoclopramide HCl (Reglan) 5 mg Q6 IV Last administered on 04/22/16 05:48; Admin Dose 5 MG; Start 04/15/16 at 18:00 Carvedilol (Coreg) 6.25 mg BID PO Last administered on 04/21/16 22:16; Admin Dose 6.25 MG; Start 04/19/16 at 21:00 Lisinopril (Zestril) 2.5 mg BID GTB Last administered on 04/21/16 22:15; Admin Dose 2.5 MG; Start 04/19/16 at 21:00 Amiodarone HCl (Cordarone) 200 mg DAILY GTB Last administered on 04/21/16 12: 28; Admin Dose 200 MG; Start 04/19/16 at 14:00 Metoprolol Tartrate (Lopressor) 2.5 mg Q6 PRN IV ELEVATED BLOOD PRESSURE Last administered on 04/20/16t 19:05; Admin Dose 2.5 MG; Start 04/19/16 at 20:00 KAYLIN BOLANOS MD Apr 22, 2016 08:11
[2016-04-22] MEDS: AMIODARONE 200 MG TAB GTB SCH (09:51)
[2016-04-22] MEDS: METOPROLOL 25 MG TAB NGT SCH (09:51)
[2016-04-22] MEDS: ASPIRIN 81 MG TAB NGT SCH (09:51)
[2016-04-22] MEDS: HEPARIN 5,000 UNIT/0.5 ML SYG SC SCH ×2 (10:00→20:53)
[2016-04-22] MEDS: LISINOPRIL 5 MG TAB GTB SCH ×2 (10:01→20:44)
--- NOTE | 2016-04-22 10:22 | CONS ---
Date/Time of Note Date/Time of Note DATE: 04/22/16 TIME: 10:19 Consult Date/Type/Reason Admit Date/Time Apr 13, 2016 at 06:25 Type of Consultation: pulmonary Subjective Comfortable Mild confusion Objective Vital Signs Date Time Temp Pulse Resp B/P Pulse Ox O2 Delivery O2 Flow Rate FiO2 04/22/16 08:21 116 04/22/16 08:20 98.8 18 104/57 98 04/22/16 01:45 21 04/21/16 17:59 2.0 04/21/16 13:00 Room Air Intake and Output 04/21/16 04/21/16 04/22/16 15:00 23:00 07:00 Intake Total 1565 ml 1420 ml Output Total 1300 ml 750 ml Balance 265 ml 670 ml PHYSICAL EXAMINATION: VITAL SIGNS: As above HEENT: Pupils are equal and reactive to light, awake alert mild confusion NECK: Supple, no JVD noted, no cervical adenopathy, no carotid bruits heard. LUNGS: Fair breath sounds bilaterally. CARDIOVASCULAR: S1, S2 normal. ABDOMEN: Soft, nontender. No organomegaly or masses noted. EXTREMITIES: No clubbing, cyanosis, or edema. NEUROLOGIC: Moves all 4 limbs no focal deficits Results/Medications Result Diagram: 04/22/16 0540 04/22/16 0540 Results 24 hrs Laboratory Tests Test 04/22/16 05:40 Alanine Aminotransferase (ALT/SGPT) 84 H Albumin 3.5 Albumin/Globulin Ratio 0.92 Alkaline Phosphatase 186 H Anion Gap 16 Aspartate Amino Transf (AST/SGOT) 88 H Basophils # 0.1 Basophils % 0.7 Blood Urea Nitrogen 7 Calcium Level 8.8 Carbon Dioxide Level 26 Chloride Level 101 Creatinine 0.49 Direct Bilirubin 0.00 Eosinophils # 0.4 Eosinophils % 3.6 Globulin 3.80 H Glucose Level 100 Hematocrit 37.2 Hemoglobin 12.7 Indirect Bilirubin 0.2 Lymphocytes # 2.1 Lymphocytes % 19.0 Magnesium Level 1.9 Mean Corpuscular Hemoglobin 30.0 Mean Corpuscular Hemoglobin Concent 34.2 Mean Corpuscular Volume 87.7 Mean Platelet Volume 8.7 Monocytes # 1.0 H Monocytes % 8.7 Neutrophils # 7.6 H Neutrophils % 68.0 Nucleated Red Blood Cells # 0.0 Nucleated Red Blood Cells % 0.0 Phosphorus Level 3.2 Platelet Count 406 Potassium Level 3.5 Red Blood Count 4.24 Red Cell Distribution Width 13.9 Sodium Level 139 Total Bilirubin 0.2 Total Protein 7.3 White Blood Count 11.2 H Medications Current Medications Ondansetron HCl (Zofran Inj) 4 mg Q6H PRN IV NAUSEA AND/OR VOMITING; Start at 06:30 Acetaminophen (Tylenol Tab) 650 mg Q6H PRN PO PAIN LEVEL 1-3 OR FEVER Last administered on 04/14/16 05:56; Admin Dose 650 MG; Start 04/13/16 at 06:30 Acetaminophen (Tylenol Supp) 650 mg Q4H PRN [place] PAIN LEVEL 1-3 OR FEVER; Start 04/13/16 at 06:30 Pantoprazole (Protonix Iv) 40 mg DAILY@06 IV Last administered on 04/22/16 05: 48; Admin Dose 40 MG; Start 04/14/16 at 06:00 Heparin Sodium (Porcine) (Heparin (5000 Units/0.5 ml)) 5,000 unit Q12 SC Last administered on 04/22/16 10:00; Admin Dose 5,000 UNIT; Start 04/13/16 at 09:00 Acetaminophen (Tylenol Supp) 650 mg Q4H PRN [place] TEMP > 37C; Start 04/13/16 at 06 :30 Acetaminophen (Tylenol Liquid) 650 mg Q4H PRN PO TEMP > 37C Last administered on 04/19/16 08:19; Admin Dose 650 MG; Start 04/13/16 at 06:30 Meperidine HCl (Demerol) 12.5 mg Q4H PRN IV POST OPERATIVE SHIVERING; Start at 06:30 Meperidine HCl 25 mg 25 mg Q4H PRN IV POST OPERATIVE SHIVERING; Start 04/13/16 at 06:30 Piperacillin Sod/ Tazobactam Sod 100 ml @ 25 mls/hr TID@02,10,18 IVPB Last administered on 04/22/16 10:03; Admin Dose 25 MLS/HR; Start 04/13/16 at 18:00 Fentanyl/Dextrose (D5W) 100 ml @ 2.5 mls/hr TITRATE IV Last administered on 04:52; Admin Dose 5.5 MLS/HR; Start 04/13/16 at 15:30; Status Future Hold Morphine Sulfate 2 mg 2 mg Q3H PRN IV PAIN Last administered on 04/19/16 04:09 ; Admin Dose 2 MG; Start 04/13/16 at 15:25 Propofol (Diprivan) 100 ml @ 2.55 mls/hr Q12H IV Last administered on 10:36; Admin Dose 25.5 MLS/HR; Start 04/13/16 at 17:30 Aspirin (Aspirin) 81 mg DAILY NGT Last administered on 04/22/16 09:51; Admin Dose 81 MG; Start 04/14/16 at 14:00 Atorvastatin Calcium 20 mg 20 mg HS PO Last administered on 04/18/16 20:12; Admin Dose 20 MG; Start 04/14/16 at 21:00; Status Future Hold Dextrose/Sodium Chloride (D5-1/2ns) 1,000 ml @ 100 mls/hr Q10H IV Last administered on 04/22/16 04:24; Admin Dose 100 MLS/HR; Start 04/14/16 at 15:30 Metoprolol Tartrate (Lopressor) 25 mg BID NGT Last administered on 04/22/16 09 :51; Admin Dose 25 MG; Start 04/15/16 at 21:00 Metoclopramide HCl (Reglan) 5 mg Q6 IV Last administered on 04/22/16 05:48; Admin Dose 5 MG; Start 04/15/16 at 18:00 Carvedilol (Coreg) 6.25 mg BID PO Last administered on 04/21/16 22:16; Admin Dose 6.25 MG; Start 04/19/16 at 21:00 Lisinopril (Zestril) 2.5 mg BID GTB Last administered on 04/21/16 22:15; Admin Dose 2.5 MG; Start 04/19/16 at 21:00 Amiodarone HCl (Cordarone) 200 mg DAILY GTB Last administered on 04/22/16 09: 51; Admin Dose 200 MG; Start 04/19/16 at 14:00 Metoprolol Tartrate (Lopressor) 2.5 mg Q6 PRN IV ELEVATED BLOOD PRESSURE Last administered on 04/20/16 19:05; Admin Dose 2.5 MG; Start 04/19/16 at 20:00 Assessment/Plan Chief Complaint/Hosp Course IMPRESSION: 1. Acute respiratory failure, hypoxemic. Possible aspiration pneumonia 2. Status post ventricular fibrillation cardiac arrest. Severe cardiomyopathy likely secondary to drug abuse. 3. Status post hypothermia protocol. 4. Methamphetamine abuse. 5. Encephalopathy. Possibly toxic metabolic RECOMMENDATIONS: 1. Status post extubation stable pulmonary standpoint 2. Continue antibiotics. 3. Cardiology followup noted. 4. Aspiration precautions, speech therapy evaluation 5. Physical therapy evaluation 6. NG feeding as tolerated. 7. Possible AICD in future if EF does not recover. Problems: SHELLEY AVILA MD, [facility] Apr 22, 2016 10:22
--- NOTE | 2016-04-22 10:55 | PN ---
Date/Time of Note Date/Time of Note DATE: 04/22/16 TIME: 10:50 Assessment/Plan VTE Prophylaxis VTE Prophylaxis Intervention: SCD's Lines/Catheters [facility]from [facility] Central Line Central line still needed: No Urinary Cath still in place: Yes Reason Cath still needed: other (indicate) (To be discontinued.) Assessment/Plan Chief Complaint/Hosp Course 1. Status post cardiopulmonary arrest secondary to ventricular fibrillation. Cardiology following. Was extubated on 04/19/2016. 2. Status post acute respiratory failure (hypoxic) secondary to cardiopulmonary arrest. S/P mechanical ventilation. Was extubated on 2016. 3. Possible underlying aspiration pneumonia. Will discontinue antibiotics. 4. S/P sepsis secondary to underlying urinary tract infection. Will discontinue antibiotics. No evidence of any septic shock. 5. Severe cardiomyopathy. Ejection fraction of 25%, most probably secondary to substance abuse. On beta blockers and PIOTR inhibitors. Cardiology following. 6. Elevated troponins. Troponin leak secondary to cardiac arrest. The patient is being followed by cardiology. 7. 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 Will advise on cessation. 8. Acute encephalopathy. Most probably metabolic in origin. Brain CT from 04/13 negative fo any acute findings. Gradually improving. 9. Transaminitis. Etiology unclear. Will trend LFTs. Avoid hepatotoxic medications. 10. Normocytic normochromic anemia. Monitor H&H closely. Transfuse as needed. 11. Dysphagia. The patient currently has NG tube in place for provision of nutrition and giving medications. Speech therapy following. 12. Fluids, electrolytes, and nutrition. The patient currently n.p.o. Failed ST evaluation. Continue NGT feeds. 12. Deep venous thrombosis prophylaxis. Bilateral sequential compression devices and subcutaneous Lovenox. 13. Gastrointestinal prophylaxis. Proton pump inhibitors. 14. Plan. Replete potassium to keep levels at 4.0. Discontinue antibiotics. Discontinue Thompson catheter. Discontinue central line after obtaining a peripheral IV. Continue physical therapy and speech therapy. Case discussed with Dr. Schrader. Problems: Subjective 24 Hr Interval Summary Free Text/Dictation The patient is working with physical therapy. Denies any pain. Exam/Review of Systems Vital Signs Vitals Vital Signs Date Time Temp Pulse Resp B/P Pulse Ox O2 Delivery O2 Flow Rate FiO2 04/22/16 08:21 116 04/22/16 08:20 98.8 18 104/57 98 04/22/16 01:45 21 04/21/16 17:59 2.0 04/21/16 13:00 Room Air Intake and Output 04/21/16 04/21/16 04/22/16 15:00 23:00 07:00 Intake Total 1565 ml 1420 ml Output Total 1300 ml 750 ml Balance 265 ml 670 ml Exam GENERAL: This is a well-built, well-nourished female lying in bed in no apparent distress. HEENT: Head normocephalic and atraumatic. Eyes: Anicteric sclerae. Conjunctivae clear. ENT: Nasal septum is midline. Oral mucosa is dry. RESPIRATORY: Bilateral diminished breath sounds. No use of accessory muscles of respiration. CARDIAC: Regular rate and rhythm. Sinus tachycardia on the monitor. ABDOMEN: Soft, nontender and nondistended. Bowel sounds positive in all 4 quadrants. GENITOURINARY: The patient has a Thompson catheter in place. EXTREMITIES: No cyanosis, no clubbing. Trace pedal edema. Peripheral pulses palpable. NEUROLOGIC: The patient is awake and alert. Oriented X 2. Results Result Diagram: 04/22/16 0540 04/22/16 0540 Results 24 hrs Laboratory Tests Test 04/22/16 05:40 Alanine Aminotransferase (ALT/SGPT) 84 H Albumin 3.5 Albumin/Globulin Ratio 0.92 Alkaline Phosphatase 186 H Anion Gap 16 Aspartate Amino Transf (AST/SGOT) 88 H Basophils # 0.1 Basophils % 0.7 Blood Urea Nitrogen 7 Calcium Level 8.8 Carbon Dioxide Level 26 Chloride Level 101 Creatinine 0.49 Direct Bilirubin 0.00 Eosinophils # 0.4 Eosinophils % 3.6 Globulin 3.80 H Glucose Level 100 Hematocrit 37.2 Hemoglobin 12.7 Indirect Bilirubin 0.2 Lymphocytes # 2.1 Lymphocytes % 19.0 Magnesium Level 1.9 Mean Corpuscular Hemoglobin 30.0 Mean Corpuscular Hemoglobin Concent 34.2 Mean Corpuscular Volume 87.7 Mean Platelet Volume 8.7 Monocytes # 1.0 H Monocytes % 8.7 Neutrophils # 7.6 H Neutrophils % 68.0 Nucleated Red Blood Cells # 0.0 Nucleated Red Blood Cells % 0.0 Phosphorus Level 3.2 Platelet Count 406 Potassium Level 3.5 Red Blood Count 4.24 Red Cell Distribution Width 13.9 Sodium Level 139 Total Bilirubin 0.2 Total Protein 7.3 White Blood Count 11.2 H Medications Medications Current Medications Ondansetron HCl (Zofran Inj) 4 mg Q6H PRN IV NAUSEA AND/OR VOMITING; Start at 06:30 Acetaminophen (Tylenol Tab) 650 mg Q6H PRN PO PAIN LEVEL 1-3 OR FEVER Last administered on 04/14/16 05:56; Admin Dose 650 MG; Start 04/13/16 at 06:30 Acetaminophen (Tylenol Supp) 650 mg Q4H PRN [place] PAIN LEVEL 1-3 OR FEVER; Start 04/13/16 at 06:30 Pantoprazole (Protonix Iv) 40 mg DAILY@06 IV Last administered on 04/22/16 05: 48; Admin Dose 40 MG; Start 04/14/16 at 06:00 Heparin Sodium (Porcine) (Heparin (5000 Units/0.5 ml)) 5,000 unit Q12 SC Last administered on 04/22/16 10:00; Admin Dose 5,000 UNIT; Start 04/13/16 at 09:00 Acetaminophen (Tylenol Supp) 650 mg Q4H PRN [place] TEMP > 37C; Start 04/13/16 at 06 :30 Acetaminophen (Tylenol Liquid) 650 mg Q4H PRN PO TEMP > 37C Last administered on 04/19/16 08:19; Admin Dose 650 MG; Start 04/13/16 at 06:30 Meperidine HCl (Demerol) 12.5 mg Q4H PRN IV POST OPERATIVE SHIVERING; Start at 06:30 Meperidine HCl 25 mg 25 mg Q4H PRN IV POST OPERATIVE SHIVERING; Start 04/13/16 at 06:30 Piperacillin Sod/ Tazobactam Sod 100 ml @ 25 mls/hr TID@02,10,18 IVPB Last administered on 04/22/16 10:03; Admin Dose 25 MLS/HR; Start 04/13/16 at 18:00 Fentanyl/Dextrose (D5W) 100 ml @ 2.5 mls/hr TITRATE IV Last administered on 04:52; Admin Dose 5.5 MLS/HR; Start 04/13/16 at 15:30; Status Future Hold Morphine Sulfate 2 mg 2 mg Q3H PRN IV PAIN Last administered on 04/19/16 04:09 ; Admin Dose 2 MG; Start 04/13/16 at 15:25 Propofol (Diprivan) 100 ml @ 2.55 mls/hr Q12H IV Last administered on 10:36; Admin Dose 25.5 MLS/HR; Start 04/13/16 at 17:30 Aspirin (Aspirin) 81 mg DAILY NGT Last administered on 04/22/16 09:51; Admin Dose 81 MG; Start 04/14/16 at 14:00 Atorvastatin Calcium 20 mg 20 mg HS PO Last administered on 04/18/16 20:12; Admin Dose 20 MG; Start 04/14/16 at 21:00; Status Future Hold Dextrose/Sodium Chloride (D5-1/2ns) 1,000 ml @ 100 mls/hr Q10H IV Last administered on 04/22/16 04:24; Admin Dose 100 MLS/HR; Start 04/14/16 at 15:30 Metoprolol Tartrate (Lopressor) 25 mg BID NGT Last administered on 04/22/16 09 :51; Admin Dose 25 MG; Start 04/15/16 at 21:00 Metoclopramide HCl (Reglan) 5 mg Q6 IV Last administered on 04/22/16 05:48; Admin Dose 5 MG; Start 04/15/16 at 18:00 Carvedilol (Coreg) 6.25 mg BID PO Last administered on 04/21/16 22:16; Admin Dose 6.25 MG; Start 04/19/16 at 21:00 Lisinopril (Zestril) 2.5 mg BID GTB Last administered on 04/21/16 22:15; Admin Dose 2.5 MG; Start 04/19/16 at 21:00 Amiodarone HCl (Cordarone) 200 mg DAILY GTB Last administered on 04/22/16 09: 51; Admin Dose 200 MG; Start 04/19/16 at 14:00 Metoprolol Tartrate (Lopressor) 2.5 mg Q6 PRN IV ELEVATED BLOOD PRESSURE Last administered on 04/20/16 19:05; Admin Dose 2.5 MG; Start 04/19/16 at 20:00 TRISTON STEINBERG NP Apr 22, 2016 10:55
[2016-04-22] MEDS ORDERED: POTASSIUM CHLORIDE 250 ML IVPB ONE (11:00)
[2016-04-23] VITALS (12 sets, daily range): BP systolic 102–116; BP diastolic 55–72; PULSE 100–123; RESP 18–20
[2016-04-23] MEDS: METOCLOPRAMIDE 10 MG INJ IV SCH ×4 (00:25→17:12)
[2016-04-23] MEDS: PANTOPRAZOLE 40 MG INJ IV SCH (05:25)
[2016-04-23 06:59] LABS: BASOPHIL # 0.1 10^3/ul (0.0-0.1); BASOPHILS % 0.8 % (0.0-2.0); EOSINOPHILS # 0.3 10^3/ul (0.0-0.5); EOSINOPHILS % 2.4 % (0.0-7.0); HEMATOCRIT 38.2 % (37.0-47.0); HEMOGLOBIN 13.1 g/dl (12.0-16.0); LYMPHOCYTES % 21.2 % (15.0-51.0); MEAN CORPUSCULAR HEMOGLOBIN 30.2 pg (29.0-33.0); MEAN CORPUSCULAR HGB CONC 34.3 g/dl (32.0-37.0); MEAN CORPUSCULAR VOLUME 88.2 fl (82.0-101.0); MEAN PLATELET VOLUME 8.9 fl (7.4-10.4); MONOCYTE # 1.1 10^3/ul (0.3-0.9); NEUTROPHIL # 9.7 10^3/ul (1.6-7.5); NEUTROPHILS % 67.6 % (39.0-77.0); PLATELET COUNT 586 10^3/UL (140-440); RED BLOOD COUNT 4.34 10^6/ul (4.20-5.40); RED CELL DISTRIBUTION WIDTH 13.6 % (11.5-14.5); UNCORRECTED WBC 14.3 10^3/ul (4.8-10.8); WHITE BLOOD COUNT 14.3 10^3/ul (4.8-10.8)
[2016-04-23 07:02] LABS: ALBUMIN 4.3 g/dl (3.3-4.9); POTASSIUM 3.6 mmol/L (3.5-5.1)
[2016-04-23 07:04] LABS: CREATININE 0.53 mg/dl (0.44-1.00)
[2016-04-23 07:05] LABS: BILIRUBIN,INDIRECT 0.3 mg/dl (0-1.1); BILIRUBIN,TOTAL 0.3 mg/dl (0.2-1.3); TOTAL PROTEIN 8.6 g/dl (6.1-8.1)
[2016-04-23 07:18] LABS: CONDITION 1
[2016-04-23 07:21] LABS: PHOSPHORUS 3.6 mg/dl (2.5-4.9)
[2016-04-23] MEDS: ASPIRIN 81 MG TAB NGT SCH (08:40)
[2016-04-23] MEDS: LISINOPRIL 5 MG TAB GTB SCH ×2 (08:41→20:47)
[2016-04-23] MEDS: AMIODARONE 200 MG TAB GTB SCH (08:41)
[2016-04-23] MEDS: HEPARIN 5,000 UNIT/0.5 ML SYG SC SCH ×2 (08:48→20:49)
--- NOTE | 2016-04-23 10:33 | PN ---
Date/Time of Note Date/Time of Note DATE: 04/23/16 TIME: 10:32 Assessment/Plan VTE Prophylaxis VTE Prophylaxis Intervention: LMWH, SCD's Lines/Catheters IV [facility] Saline Lock Urinary Cath still in place: No Assessment/Plan Chief Complaint/Hosp Course 1. Status post cardiopulmonary arrest secondary to ventricular fibrillation. Cardiology following. Was extubated on 04/19/2016. 2. Status post acute respiratory failure (hypoxic) secondary to cardiopulmonary arrest. S/P mechanical ventilation. Was extubated on 2016. 3. Possible underlying aspiration pneumonia. Status post antibiotic therapy. 4. S/P sepsis secondary to underlying urinary tract infection. Status post antibiotics. 5. Severe cardiomyopathy. Ejection fraction of 25%, most probably secondary to substance abuse. On beta blockers and PIOTR inhibitors. Cardiology following. 6. Elevated troponins. Troponin leak secondary to cardiac arrest. The patient is being followed by cardiology. 7. 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 Will advise on cessation. 8. Acute encephalopathy. Most probably metabolic in origin. Brain CT from 04/13 negative fo any acute findings. Gradually improving. 9. Transaminitis. Etiology unclear. Will trend LFTs. Avoid hepatotoxic medications. 10. Normocytic normochromic anemia. Monitor H&H closely. Transfuse as needed. 11. Dysphagia. The patient currently has NG tube in place for provision of nutrition and giving medications. Speech therapy following. We will discontinue the NG tube as per speech therapy recommendations and will start the patient on a pured diet with thin liquids and no straws. 12. Fluids, electrolytes, and nutrition. Discontinue NGT. Start oral feeds. 13. Deep venous thrombosis prophylaxis. Bilateral sequential compression devices and subcutaneous Lovenox. 14. Gastrointestinal prophylaxis. Proton pump inhibitors. 15. Plan. Replete potassium to keep levels at 4.0. Continue physical therapy and speech therapy. Discontinue NG tube. Start the patient on a diet as per speech therapy recommendations. Case discussed with Dr. Schrader. Problems: Subjective 24 Hr Interval Summary Free Text/Dictation The patient remains somnolent. Exam/Review of Systems Vital Signs Vitals Vital Signs Date Time Temp Pulse Resp B/P Pulse Ox O2 Delivery O2 Flow Rate FiO2 04/23/16 08:27 123 04/23/16 06:58 98.1 18 103/55 99 04/23/16 05:48 21 04/21/16 17:59 2.0 04/21/16 13:00 Room Air Intake and Output 04/22/16 04/22/16 04/23/16 15:00 23:00 07:00 Intake Total 800 ml 500 ml 750 ml Output Total 900 ml 600 ml 2 ml Balance -100 ml -100 ml 748 ml Exam GENERAL: This is a well-built, well-nourished female lying in bed in no apparent distress. HEENT: Head normocephalic and atraumatic. Eyes: Anicteric sclerae. Conjunctivae clear. ENT: Nasal septum is midline. Oral mucosa is dry. RESPIRATORY: Bilateral diminished breath sounds. No use of accessory muscles of respiration. CARDIAC: Regular rate and rhythm. Sinus tachycardia on the monitor. ABDOMEN: Soft, nontender and nondistended. Bowel sounds positive in all 4 quadrants. GENITOURINARY: The patient has a Thompson catheter in place. EXTREMITIES: No cyanosis, no clubbing. Trace pedal edema. Peripheral pulses palpable. NEUROLOGIC: The patient is awake and alert. Oriented X 2. Results Result Diagram: 04/23/16 0540 04/23/16 0540 Results 24 hrs Laboratory Tests Test 04/23/16 05:40 Alanine Aminotransferase (ALT/SGPT) 82 H Albumin 4.3 Albumin/Globulin Ratio 1.00 Alkaline Phosphatase 204 H Anion Gap 17 H Aspartate Amino Transf (AST/SGOT) 70 H Basophils # 0.1 Basophils % 0.8 Blood Urea Nitrogen 8 Calcium Level 10.0 Carbon Dioxide Level 28 Chloride Level 100 Creatinine 0.53 Direct Bilirubin 0.00 Eosinophils # 0.3 Eosinophils % 2.4 Globulin 4.30 H Glucose Level 83 Hematocrit 38.2 Hemoglobin 13.1 Indirect Bilirubin 0.3 Lymphocytes # 3.0 H Lymphocytes % 21.2 Magnesium Level 2.0 Mean Corpuscular Hemoglobin 30.2 Mean Corpuscular Hemoglobin Concent 34.3 Mean Corpuscular Volume 88.2 Mean Platelet Volume 8.9 Monocytes # 1.1 H Monocytes % 8.0 Neutrophils # 9.7 H Neutrophils % 67.6 Nucleated Red Blood Cells # 0.0 Nucleated Red Blood Cells % 0.0 Phosphorus Level 3.6 Platelet Count 586 #H Potassium Level 3.6 Red Blood Count 4.34 Red Cell Distribution Width 13.6 Sodium Level 141 Total Bilirubin 0.3 Total Protein 8.6 H White Blood Count 14.3 #H Medications Medications Current Medications Ondansetron HCl (Zofran Inj) 4 mg Q6H PRN IV NAUSEA AND/OR VOMITING; Start at 06:30 Acetaminophen (Tylenol Tab) 650 mg Q6H PRN PO PAIN LEVEL 1-3 OR FEVER Last administered on 04/14/16 05:56; Admin Dose 650 MG; Start 04/13/16 at 06:30 Acetaminophen (Tylenol Supp) 650 mg Q4H PRN [place] PAIN LEVEL 1-3 OR FEVER; Start 04/13/16 at 06:30 Pantoprazole (Protonix Iv) 40 mg DAILY@06 IV Last administered on 04/23/16 05: 25; Admin Dose 40 MG; Start 04/14/16 at 06:00 Heparin Sodium (Porcine) (Heparin (5000 Units/0.5 ml)) 5,000 unit Q12 SC Last administered on 04/23/16 08:48; Admin Dose 5,000 UNIT; Start 04/13/16 at 09:00 Acetaminophen (Tylenol Supp) 650 mg Q4H PRN [place] TEMP > 37C; Start 04/13/16 at 06 :30 Acetaminophen (Tylenol Liquid) 650 mg Q4H PRN PO TEMP > 37C Last administered on 04/19/16 08:19; Admin Dose 650 MG; Start 04/13/16 at 06:30 Morphine Sulfate (morphine) 2 mg Q3H PRN IV PAIN Last administered on 04:09; Admin Dose 2 MG; Start 04/13/16 at 15:25 Aspirin (Aspirin) 81 mg DAILY NGT Last administered on 04/23/16 08:40; Admin Dose 81 MG; Start 04/14/16 at 14:00 Atorvastatin Calcium (Lipitor) 20 mg HS PO Last administered on 04/18/16 20:12 ; Admin Dose 20 MG; Start 04/14/16 at 21:00; Status Future Hold Metoclopramide HCl (Reglan) 5 mg Q6 IV Last administered on 04/23/16 05:25; Admin Dose 5 MG; Start 04/15/16 at 18:00 Carvedilol (Coreg) 6.25 mg BID PO Last administered on 04/23/16 08:40; Admin Dose 6.25 MG; Start 04/19/16 at 21:00 Lisinopril (Zestril) 2.5 mg BID GTB Last administered on 04/23/16 08:41; Admin Dose 2.5 MG; Start 04/19/16 at 21:00 Amiodarone HCl (Cordarone) 200 mg DAILY GTB Last administered on 04/23/16 08: 41; Admin Dose 200 MG; Start 04/19/16 at 14:00 Metoprolol Tartrate (Lopressor) 2.5 mg Q6 PRN IV ELEVATED BLOOD PRESSURE Last administered on 04/20/16 19:05; Admin Dose 2.5 MG; Start 04/19/16 at 20:00 TRISTON STEINBERG NP Apr 23, 2016 10:33
[2016-04-23] MEDS ORDERED: POTASSIUM CHLORIDE 30 MEQ in DEXTROSE 5% 250 ML IVPB ONE (11:30)
--- NOTE | 2016-04-23 16:26 | PN ---
Date/Time of Note Date/Time of Note DATE: 04/23/16 TIME: 16:25 Assessment/Plan VTE Prophylaxis VTE Prophylaxis Intervention: SCD's Lines/Catheters IV Catheter Type (from Nrs): Saline Lock Urinary Cath still in place: Yes Reason Cath still needed: urinary retention Assessment/Plan Assessment/Plan Cardiac arrest Ventricular fibrillation Severe cardiomyopathy with ejection fraction 25% SIRS Sinus tachycardia Methamphetamine use Elevated troponins -s/p diuretics continue cardiac meds possible AICD once recovers, though, with some heistation based on her history of drug use > may be able to avoid as drug use may have been the etiology and may not be a good candidate. Possible life vest if beocmes necessary No evidecne of ACS - +trops due to arrest Subjective 24 Hr Interval Summary Free Text/Dictation The patient with no cahnge Exam/Review of Systems Vital Signs Vitals Vital Signs Date Time Temp Pulse Resp B/P Pulse Ox O2 Delivery O2 Flow Rate FiO2 04/23/16 16:18 109 04/23/16 15:04 98.0 18 102/56 97 04/23/16 05:48 21 04/21/16 17:59 2.0 04/21/16 13:00 Room Air Intake and Output 04/22/16 04/22/16 04/23/16 15:00 23:00 07:00 Intake Total 800 ml 500 ml 750 ml Output Total 900 ml 600 ml 2 ml Balance -100 ml -100 ml 748 ml Results Result Diagram: 04/23/16 0540 04/23/16 0540 Results 24 hrs Laboratory Tests Test 04/23/16 05:40 Alanine Aminotransferase (ALT/SGPT) 82 H Albumin 4.3 Albumin/Globulin Ratio 1.00 Alkaline Phosphatase 204 H Anion Gap 17 H Aspartate Amino Transf (AST/SGOT) 70 H Basophils # 0.1 Basophils % 0.8 Blood Urea Nitrogen 8 Calcium Level 10.0 Carbon Dioxide Level 28 Chloride Level 100 Creatinine 0.53 Direct Bilirubin 0.00 Eosinophils # 0.3 Eosinophils % 2.4 Globulin 4.30 H Glucose Level 83 Hematocrit 38.2 Hemoglobin 13.1 Indirect Bilirubin 0.3 Lymphocytes # 3.0 H Lymphocytes % 21.2 Magnesium Level 2.0 Mean Corpuscular Hemoglobin 30.2 Mean Corpuscular Hemoglobin Concent 34.3 Mean Corpuscular Volume 88.2 Mean Platelet Volume 8.9 Monocytes # 1.1 H Monocytes % 8.0 Neutrophils # 9.7 H Neutrophils % 67.6 Nucleated Red Blood Cells # 0.0 Nucleated Red Blood Cells % 0.0 Phosphorus Level 3.6 Platelet Count 586 #H Potassium Level 3.6 Red Blood Count 4.34 Red Cell Distribution Width 13.6 Sodium Level 141 Total Bilirubin 0.3 Total Protein 8.6 H White Blood Count 14.3 #H Medications Medications Current Medications Ondansetron HCl (Zofran Inj) 4 mg Q6H PRN IV NAUSEA AND/OR VOMITING; Start at 06:30 Acetaminophen (Tylenol Tab) 650 mg Q6H PRN PO PAIN LEVEL 1-3 OR FEVER Last administered on 04/14/16 05:56; Admin Dose 650 MG; Start 04/13/16 at 06:30 Acetaminophen (Tylenol Supp) 650 mg Q4H PRN [place] PAIN LEVEL 1-3 OR FEVER; Start 04/13/16 at 06:30 Pantoprazole (Protonix Iv) 40 mg DAILY@06 IV Last administered on 04/23/16 05: 25; Admin Dose 40 MG; Start 04/14/16 at 06:00 Heparin Sodium (Porcine) (Heparin (5000 Units/0.5 ml)) 5,000 unit Q12 SC Last administered on 04/23/16 08:48; Admin Dose 5,000 UNIT; Start 04/13/16 at 09:00 Acetaminophen (Tylenol Supp) 650 mg Q4H PRN [place] TEMP > 37C; Start 04/13/16 at 06 :30 Acetaminophen (Tylenol Liquid) 650 mg Q4H PRN PO TEMP > 37C Last administered on 04/19/16 08:19; Admin Dose 650 MG; Start 04/13/16 at 06:30 Morphine Sulfate (morphine) 2 mg Q3H PRN IV PAIN Last administered on 04:09; Admin Dose 2 MG; Start 04/13/16 at 15:25 Aspirin (Aspirin) 81 mg DAILY NGT Last administered on 04/23/16 08:40; Admin Dose 81 MG; Start 04/14/16 at 14:00 Atorvastatin Calcium (Lipitor) 20 mg HS PO Last administered on 04/18/16 20:12 ; Admin Dose 20 MG; Start 04/14/16 at 21:00; Status Future Hold Metoclopramide HCl (Reglan) 5 mg Q6 IV Last administered on 04/23/16 12:45; Admin Dose 5 MG; Start 04/15/16 at 18:00 Carvedilol (Coreg) 6.25 mg BID PO Last administered on 04/23/16 08:40; Admin Dose 6.25 MG; Start 04/19/16 at 21:00 Lisinopril (Zestril) 2.5 mg BID GTB Last administered on 04/23/16 08:41; Admin Dose 2.5 MG; Start 04/19/16 at 21:00 Amiodarone HCl (Cordarone) 200 mg DAILY GTB Last administered on 04/23/16 08: 41; Admin Dose 200 MG; Start 04/19/16 at 14:00 Metoprolol Tartrate (Lopressor) 2.5 mg Q6 PRN IV ELEVATED BLOOD PRESSURE Last administered on 04/20/16 19:05; Admin Dose 2.5 MG; Start 04/19/16 at 20:00 KAYLIN BOLANOS MD Apr 23, 2016 16:25
[2016-04-24] VITALS (13 sets, daily range): BP systolic 99–118; BP diastolic 52–65; PULSE 85–185; RESP 18–19
[2016-04-24] MEDS: METOCLOPRAMIDE 10 MG INJ IV SCH ×5 (01:52→23:56)
[2016-04-24] MEDS: PANTOPRAZOLE 40 MG INJ IV SCH (05:58)
[2016-04-24 06:40] LABS: BASOPHIL # 0.1 10^3/ul (0.0-0.1); EOSINOPHILS # 0.2 10^3/ul (0.0-0.5); EOSINOPHILS % 1.5 % (0.0-7.0); HEMATOCRIT 37.2 % (37.0-47.0); HEMOGLOBIN 12.8 g/dl (12.0-16.0); LYMPHOCYTES # 3.3 10^3/ul (0.8-2.9); LYMPHOCYTES % 22.6 % (15.0-51.0); MEAN CORPUSCULAR HEMOGLOBIN 29.8 pg (29.0-33.0); MEAN CORPUSCULAR HGB CONC 34.3 g/dl (32.0-37.0); MEAN CORPUSCULAR VOLUME 86.9 fl (82.0-101.0); MEAN PLATELET VOLUME 8.5 fl (7.4-10.4); MONOCYTE # 1.1 10^3/ul (0.3-0.9); MONOCYTES % 7.3 % (0.0-11.0); NEUTROPHIL # 9.9 10^3/ul (1.6-7.5); NEUTROPHILS % 67.6 % (39.0-77.0); PLATELET COUNT 608 10^3/UL (140-440); RED BLOOD COUNT 4.28 10^6/ul (4.20-5.40); RED CELL DISTRIBUTION WIDTH 13.8 % (11.5-14.5); UNCORRECTED WBC 14.6 10^3/ul (4.8-10.8); WHITE BLOOD COUNT 14.6 10^3/ul (4.8-10.8)
[2016-04-24 06:49] LABS: ALBUMIN 4.2 g/dl (3.3-4.9); POTASSIUM 4.2 mmol/L (3.5-5.1)
[2016-04-24 06:51] LABS: CREATININE 0.58 mg/dl (0.44-1.00)
[2016-04-24 06:52] LABS: ALBUMIN/GLOBULIN RATIO 1.02; BILIRUBIN,INDIRECT 0.3 mg/dl (0-1.1); BILIRUBIN,TOTAL 0.3 mg/dl (0.2-1.3); TOTAL PROTEIN 8.3 g/dl (6.1-8.1)
[2016-04-24 06:56] LABS: PHOSPHORUS 4.4 mg/dl (2.5-4.9)
[2016-04-24 07:01] LABS: CONDITION 1
[2016-04-24] MEDS: ASPIRIN 81 MG TAB NGT SCH (07:47)
[2016-04-24] MEDS: AMIODARONE 200 MG TAB GTB SCH (07:47)
[2016-04-24] MEDS: LISINOPRIL 5 MG TAB GTB SCH ×2 (07:48→20:46)
[2016-04-24] MEDS: HEPARIN 5,000 UNIT/0.5 ML SYG SC SCH ×2 (07:53→21:03)
--- NOTE | 2016-04-24 08:14 | PN ---
Date/Time of Note Date/Time of Note DATE: 04/24/16 TIME: 08:12 Assessment/Plan VTE Prophylaxis VTE Prophylaxis Intervention: SCD's Lines/Catheters IV Catheter Type (from Nrs): Saline Lock Assessment/Plan Assessment/Plan Cardiac arrest Ventricular fibrillation Severe cardiomyopathy with ejection fraction 25% SIRS Sinus tachycardia Methamphetamine use Elevated troponins -s/p diuretics continue cardiac meds On amiodarone possible AICD once recovers, though, with some heistation based on her history of drug use > may be able to avoid as drug use may have been the etiology and may not be a good candidate. Possible life vest if beocmes necessary No evidecne of ACS - +trops due to arrest Had an extensive discussion with her regarding benefits of AICD as we make final dcsions on her care - she has absolutely declined AICD and aware of risk of sudden echo reordered to see if EF has improved since her cardiac arrest last drug use 3 weeks back per pateint Subjective 24 Hr Interval Summary Free Text/Dictation The patient much better and alert and oriented, conversant Exam/Review of Systems Vital Signs Vitals Vital Signs Date Time Temp Pulse Resp B/P Pulse Ox O2 Delivery O2 Flow Rate FiO2 04/24/16 07:59 98.0 97 19 101/52 96 04/24/16 03:43 21 04/21/16 17:59 2.0 04/21/16 13:00 Room Air Intake and Output 04/23/16 04/23/16 04/24/16 15:00 23:00 07:00 Intake Total 505 ml 50 ml Balance 505 ml 50 ml Results Result Diagram: 04/24/16 0540 04/24/16 0540 Results 24 hrs Laboratory Tests Test 04/24/16 05:40 Alanine Aminotransferase (ALT/SGPT) 66 Albumin 4.2 Albumin/Globulin Ratio 1.02 Alkaline Phosphatase 162 H Anion Gap 17 H Aspartate Amino Transf (AST/SGOT) 42 Basophils # 0.1 Basophils % 1.0 Blood Urea Nitrogen 11 Calcium Level 10.0 Carbon Dioxide Level 30 Chloride Level 97 Creatinine 0.58 Direct Bilirubin 0.00 Eosinophils # 0.2 Eosinophils % 1.5 Globulin 4.10 H Glucose Level 89 Hematocrit 37.2 Hemoglobin 12.8 Indirect Bilirubin 0.3 Lymphocytes # 3.3 H Lymphocytes % 22.6 Magnesium Level 2.0 Mean Corpuscular Hemoglobin 29.8 Mean Corpuscular Hemoglobin Concent 34.3 Mean Corpuscular Volume 86.9 Mean Platelet Volume 8.5 Monocytes # 1.1 H Monocytes % 7.3 Neutrophils # 9.9 H Neutrophils % 67.6 Nucleated Red Blood Cells # 0.0 Nucleated Red Blood Cells % 0.0 Phosphorus Level 4.4 Platelet Count 608 H Potassium Level 4.2 Red Blood Count 4.28 Red Cell Distribution Width 13.8 Sodium Level 140 Total Bilirubin 0.3 Total Protein 8.3 H White Blood Count 14.6 H Medications Medications Current Medications Ondansetron HCl (Zofran Inj) 4 mg Q6H PRN IV NAUSEA AND/OR VOMITING; Start at 06:30 Acetaminophen (Tylenol Tab) 650 mg Q6H PRN PO PAIN LEVEL 1-3 OR FEVER Last administered on 04/14/16 05:56; Admin Dose 650 MG; Start 04/13/16 at 06:30 Acetaminophen (Tylenol Supp) 650 mg Q4H PRN [place] PAIN LEVEL 1-3 OR FEVER; Start 04/13/16 at 06:30 Pantoprazole (Protonix Iv) 40 mg DAILY@06 IV Last administered on 04/24/16 05: 58; Admin Dose 40 MG; Start 04/14/16 at 06:00 Heparin Sodium (Porcine) (Heparin (5000 Units/0.5 ml)) 5,000 unit Q12 SC Last administered on 04/24/16 07:53; Admin Dose 5,000 UNIT; Start 04/13/16 at 09:00 Acetaminophen (Tylenol Supp) 650 mg Q4H PRN [place] TEMP > 37C; Start 04/13/16 at 06 :30 Acetaminophen (Tylenol Liquid) 650 mg Q4H PRN PO TEMP > 37C Last administered on 04/19/16 08:19; Admin Dose 650 MG; Start 04/13/16 at 06:30 Morphine Sulfate (morphine) 2 mg Q3H PRN IV PAIN Last administered on 04:09; Admin Dose 2 MG; Start 04/13/16 at 15:25 Aspirin (Aspirin) 81 mg DAILY NGT Last administered on 04/24/16 07:47; Admin Dose 81 MG; Start 04/14/16 at 14:00 Atorvastatin Calcium (Lipitor) 20 mg HS PO Last administered on 04/18/16 20:12 ; Admin Dose 20 MG; Start 04/14/16 at 21:00; Status Future Hold Metoclopramide HCl (Reglan) 5 mg Q6 IV Last administered on 04/24/16 06:00; Admin Dose 5 MG; Start 04/15/16 at 18:00 Carvedilol (Coreg) 6.25 mg BID PO Last administered on 04/24/16 07:48; Admin Dose 6.25 MG; Start 04/19/16 at 21:00 Lisinopril (Zestril) 2.5 mg BID GTB Last administered on 04/23/16 20:47; Admin Dose 2.5 MG; Start 04/19/16 at 21:00 Amiodarone HCl (Cordarone) 200 mg DAILY GTB Last administered on 04/24/16 07: 47; Admin Dose 200 MG; Start 04/19/16 at 14:00 Metoprolol Tartrate (Lopressor) 2.5 mg Q6 PRN IV ELEVATED BLOOD PRESSURE Last administered on 04/20/16 19:05; Admin Dose 2.5 MG; Start 04/19/16 at 20:00 KAYLIN BOLANOS MD Apr 24, 2016 08:14
--- NOTE | 2016-04-24 11:33 | PN ---
Date/Time of Note Date/Time of Note DATE: 04/24/16 TIME: 11:30 Assessment/Plan VTE Prophylaxis VTE Prophylaxis Intervention: LMWH, SCD's Lines/Catheters IV [facility] Saline Lock Assessment/Plan Chief Complaint/Hosp Course 1. Status post cardiopulmonary arrest secondary to ventricular fibrillation. Cardiology following. Was extubated on 04/19/2016. 2. Status post acute respiratory failure (hypoxic) secondary to cardiopulmonary arrest. S/P mechanical ventilation. Was extubated on 2016. 3. Possible underlying aspiration pneumonia. Status post antibiotic therapy. 4. S/P sepsis secondary to underlying urinary tract infection. Status post antibiotics. 5. Severe cardiomyopathy. Ejection fraction of 25%, most probably secondary to substance abuse. On beta blockers and PIOTR inhibitors. Cardiology following. 6. Elevated troponins. Troponin leak secondary to cardiac arrest. The patient is being followed by cardiology. 7. Substance abuse. knockout worker on the case. Will advise on cessation. 8. Acute encephalopathy. Most probably metabolic in origin. Brain CT from 04/13 negative fo any acute findings. Gradually improving. 9. Transaminitis. Etiology unclear. Will trend LFTs. Avoid hepatotoxic medications. 10. Normocytic normochromic anemia. Monitor H&H closely. Transfuse as needed. 11. Dysphagia. The patient's NG tube has been discontinued on 04/23/2016. Currently on a pured diet and no straws. Aspiration precautions. Speech therapy following. 12. Deconditioning. Continue physical therapy. 13. Fluids, electrolytes, and nutrition. Discontinue NGT. Start oral feeds. 14. Deep venous thrombosis prophylaxis. Bilateral sequential compression devices and subcutaneous Lovenox. 15. Gastrointestinal prophylaxis. Proton pump inhibitors. 16. Plan. Continue physical therapy and speech therapy. Case discussed with Dr. Schrader. Problems: Subjective 24 Hr Interval Summary Free Text/Dictation Denies any chest pain or dyspnea. Exam/Review of Systems Vital Signs Vitals Vital Signs Date Time Temp Pulse Resp B/P Pulse Ox O2 Delivery O2 Flow Rate FiO2 04/24/16 09:05 185 04/24/16 07:59 98.0 19 101/52 96 04/24/16 03:43 21 04/21/16 17:59 2.0 04/21/16 13:00 Room Air Intake and Output 04/23/16 04/23/16 04/24/16 15:00 23:00 07:00 Intake Total 505 ml 50 ml Balance 505 ml 50 ml Exam GENERAL: This is a well-built, well-nourished female lying in bed in no apparent distress. HEENT: Head normocephalic and atraumatic. Eyes: Anicteric sclerae. Conjunctivae clear. ENT: Nasal septum is midline. Oral mucosa is dry. RESPIRATORY: Bilateral diminished breath sounds. No use of accessory muscles of respiration. CARDIAC: Regular rate and rhythm. Sinus tachycardia on the monitor. ABDOMEN: Soft, nontender and nondistended. Bowel sounds positive in all 4 quadrants. GENITOURINARY: The patient has a Thompson catheter in place. EXTREMITIES: No cyanosis, no clubbing. Trace pedal edema. Peripheral pulses palpable. NEUROLOGIC: The patient is awake and alert. Oriented X 2. Results Result Diagram: 04/24/16 0540 04/24/16 0540 Results 24 hrs Laboratory Tests Test 04/24/16 05:40 Alanine Aminotransferase (ALT/SGPT) 66 Albumin 4.2 Albumin/Globulin Ratio 1.02 Alkaline Phosphatase 162 H Anion Gap 17 H Aspartate Amino Transf (AST/SGOT) 42 Basophils # 0.1 Basophils % 1.0 Blood Urea Nitrogen 11 Calcium Level 10.0 Carbon Dioxide Level 30 Chloride Level 97 Creatinine 0.58 Direct Bilirubin 0.00 Eosinophils # 0.2 Eosinophils % 1.5 Globulin 4.10 H Glucose Level 89 Hematocrit 37.2 Hemoglobin 12.8 Indirect Bilirubin 0.3 Lymphocytes # 3.3 H Lymphocytes % 22.6 Magnesium Level 2.0 Mean Corpuscular Hemoglobin 29.8 Mean Corpuscular Hemoglobin Concent 34.3 Mean Corpuscular Volume 86.9 Mean Platelet Volume 8.5 Monocytes # 1.1 H Monocytes % 7.3 Neutrophils # 9.9 H Neutrophils % 67.6 Nucleated Red Blood Cells # 0.0 Nucleated Red Blood Cells % 0.0 Phosphorus Level 4.4 Platelet Count 608 H Potassium Level 4.2 Red Blood Count 4.28 Red Cell Distribution Width 13.8 Sodium Level 140 Total Bilirubin 0.3 Total Protein 8.3 H White Blood Count 14.6 H Medications Medications Current Medications Ondansetron HCl (Zofran Inj) 4 mg Q6H PRN IV NAUSEA AND/OR VOMITING; Start at 06:30 Acetaminophen (Tylenol Tab) 650 mg Q6H PRN PO PAIN LEVEL 1-3 OR FEVER Last administered on 04/14/16 05:56; Admin Dose 650 MG; Start 04/13/16 at 06:30 Acetaminophen (Tylenol Supp) 650 mg Q4H PRN [place] PAIN LEVEL 1-3 OR FEVER; Start 04/13/16 at 06:30 Pantoprazole (Protonix Iv) 40 mg DAILY@06 IV Last administered on 04/24/16 05: 58; Admin Dose 40 MG; Start 04/14/16 at 06:00 Heparin Sodium (Porcine) (Heparin (5000 Units/0.5 ml)) 5,000 unit Q12 SC Last administered on 04/24/16 07:53; Admin Dose 5,000 UNIT; Start 04/13/16 at 09:00 Acetaminophen (Tylenol Supp) 650 mg Q4H PRN [place] TEMP > 37C; Start 04/13/16 at 06 :30 Acetaminophen (Tylenol Liquid) 650 mg Q4H PRN PO TEMP > 37C Last administered on 04/19/16 08:19; Admin Dose 650 MG; Start 04/13/16 at 06:30 Morphine Sulfate (morphine) 2 mg Q3H PRN IV PAIN Last administered on 04:09; Admin Dose 2 MG; Start 04/13/16 at 15:25 Aspirin (Aspirin) 81 mg DAILY NGT Last administered on 04/24/16 07:47; Admin Dose 81 MG; Start 04/14/16 at 14:00 Atorvastatin Calcium (Lipitor) 20 mg HS PO Last administered on 04/18/16 20:12 ; Admin Dose 20 MG; Start 04/14/16 at 21:00; Status Future Hold Metoclopramide HCl (Reglan) 5 mg Q6 IV Last administered on 04/24/16 11:17; Admin Dose 5 MG; Start 04/15/16 at 18:00 Carvedilol (Coreg) 6.25 mg BID PO Last administered on 04/24/16 07:48; Admin Dose 6.25 MG; Start 04/19/16 at 21:00 Lisinopril (Zestril) 2.5 mg BID GTB Last administered on 04/23/16 20:47; Admin Dose 2.5 MG; Start 1/23/17 at 21:00 Amiodarone HCl (Cordarone) 200 mg DAILY GTB Last administered on 04/24/16 07: 47; Admin Dose 200 MG; Start 04/19/16 at 14:00 Metoprolol Tartrate (Lopressor) 2.5 mg Q6 PRN IV ELEVATED BLOOD PRESSURE Last administered on 04/20/16 19:05; Admin Dose 2.5 MG; Start 04/19/16 at 20:00 TRISTON STEINBERG NP Apr 24, 2016 11:33
[2016-04-24] MEDS: ACETAMINOPHEN 325 MG TAB PO PRN (12:36)
[2016-04-25] VITALS (11 sets, daily range): BP systolic 98–117; BP diastolic 45–61; PULSE 88–110; RESP 15–19
[2016-04-25] MEDS: METOCLOPRAMIDE 10 MG INJ IV SCH ×3 (05:19→18:00)
[2016-04-25] MEDS: PANTOPRAZOLE 40 MG INJ IV SCH (05:19)
[2016-04-25 08:09] LABS: ALBUMIN 3.9 g/dl (3.3-4.9)
[2016-04-25 08:10] LABS: POTASSIUM 4.2 mmol/L (3.5-5.1)
[2016-04-25 08:11] LABS: PHOSPHORUS 4.1 mg/dl (2.5-4.9)
[2016-04-25 08:12] LABS: BILIRUBIN,INDIRECT 0.5 mg/dl (0-1.1); BILIRUBIN,TOTAL 0.5 mg/dl (0.2-1.3); CREATININE 0.59 mg/dl (0.44-1.00)
[2016-04-25 08:13] LABS: ALBUMIN/GLOBULIN RATIO 0.88; CALCIUM 9.5 mg/dl (8.4-10.2); TOTAL PROTEIN 8.3 g/dl (6.1-8.1)
[2016-04-25 08:26] LABS: BASOPHIL # 0.2 10^3/ul (0.0-0.1); BASOPHILS % 1.8 % (0.0-2.0); EOSINOPHILS # 0.2 10^3/ul (0.0-0.5); EOSINOPHILS % 1.6 % (0.0-7.0); HEMOGLOBIN 12.6 g/dl (12.0-16.0); LYMPHOCYTES # 2.9 10^3/ul (0.8-2.9); LYMPHOCYTES % 22.1 % (15.0-51.0); MEAN CORPUSCULAR HEMOGLOBIN 30.1 pg (29.0-33.0); MEAN PLATELET VOLUME 8.9 fl (7.4-10.4); MONOCYTES % 7.5 % (0.0-11.0); NEUTROPHIL # 8.9 10^3/ul (1.6-7.5); RED BLOOD COUNT 4.18 10^6/ul (4.20-5.40); RED CELL DISTRIBUTION WIDTH 13.8 % (11.5-14.5); UNCORRECTED WBC 13.3 10^3/ul (4.8-10.8); WHITE BLOOD COUNT 13.3 10^3/ul (4.8-10.8)
--- NOTE | 2016-04-25 08:46 | CONS ---
Date/Time of Note Date/Time of Note DATE: 04/25/16 TIME: 08:44 Consultation Date/Type/Reason Admit Date/Time Apr 13, 2016 at 06:25 Initial Consult Date Type of Consultation: pulmonary 24 HR Interval Summary Free Text/Dictation Cardiac arrest Ventricular fibrillation Severe cardiomyopathy with ejection fraction 25% SIRS Sinus tachycardia Methamphetamine use Elevated troponins -s/p diuretics continue cardiac meds On amiodarone refused ICD Constitutional: other (tearful) Exam/Review of Systems Vital Signs Vitals Vital Signs Date Time Temp Pulse Resp B/P Pulse Ox O2 Delivery O2 Flow Rate FiO2 04/25/16 07:58 98.1 83 19 111/61 97 04/24/16 20:00 Room Air 04/24/16 03:43 21 04/21/16 17:59 2.0 Exam Constitutional: alert, oriented Respiratory: clear to auscultation Cardiovascular: regular rate and rhythm, No systolic murmur Results Result Diagram: 04/24/16 0540 04/25/16 0640 Results 24 hrs Laboratory Tests Test 04/25/16 06:40 Alanine Aminotransferase (ALT/SGPT) 55 Albumin 3.9 Albumin/Globulin Ratio 0.88 Alkaline Phosphatase 128 H Anion Gap 16 Aspartate Amino Transf (AST/SGOT) 43 Blood Urea Nitrogen 14 Calcium Level 9.5 Carbon Dioxide Level 27 Chloride Level 100 Creatinine 0.59 Direct Bilirubin 0.00 Globulin 4.40 H Glucose Level 81 Indirect Bilirubin 0.5 Magnesium Level 2.0 Phosphorus Level 4.1 Potassium Level 4.2 Sodium Level 139 Total Bilirubin 0.5 Total Protein 8.3 H Medications Medications Current Medications Ondansetron HCl (Zofran Inj) 4 mg Q6H PRN IV NAUSEA AND/OR VOMITING; Start at 06:30 Acetaminophen (Tylenol Tab) 650 mg Q6H PRN PO PAIN LEVEL 1-3 OR FEVER Last administered on 04/24/16 12:36; Admin Dose 650 MG; Start 04/13/16 at 06:30 Acetaminophen (Tylenol Supp) 650 mg Q4H PRN [place] PAIN LEVEL 1-3 OR FEVER; Start 04/13/16 at 06:30 Pantoprazole (Protonix Iv) 40 mg DAILY@06 IV Last administered on 04/25/16 05: 19; Admin Dose 40 MG; Start 04/14/16 at 06:00 Heparin Sodium (Porcine) (Heparin (5000 Units/0.5 ml)) 5,000 unit Q12 SC Last administered on 04/24/16 21:03; Admin Dose 5,000 UNIT; Start 04/13/16 at 09:00 Acetaminophen (Tylenol Supp) 650 mg Q4H PRN [place] TEMP > 37C; Start 04/13/16 at 06 :30 Acetaminophen (Tylenol Liquid) 650 mg Q4H PRN PO TEMP > 37C Last administered on 04/19/16 08:19; Admin Dose 650 MG; Start 04/13/16 at 06:30 Morphine Sulfate (morphine) 2 mg Q3H PRN IV PAIN Last administered on 04:09; Admin Dose 2 MG; Start 04/13/16 at 15:25 Aspirin (Aspirin) 81 mg DAILY NGT Last administered on 04/24/16 07:47; Admin Dose 81 MG; Start 04/14/16 at 14:00 Atorvastatin Calcium (Lipitor) 20 mg HS PO Last administered on 04/18/16 20:12 ; Admin Dose 20 MG; Start 04/14/16 at 21:00; Status Future Hold Metoclopramide HCl (Reglan) 5 mg Q6 IV Last administered on 04/25/16 05:19; Admin Dose 5 MG; Start 04/15/16 at 18:00 Carvedilol (Coreg) 6.25 mg BID PO Last administered on 04/24/16 20:46; Admin Dose 6.25 MG; Start 04/19/16 at 21:00 Lisinopril (Zestril) 2.5 mg BID GTB Last administered on 04/24/16 20:46; Admin Dose 2.5 MG; Start 04/19/16 at 21:00 Amiodarone HCl (Cordarone) 200 mg DAILY GTB Last administered on 04/24/16 07: 47; Admin Dose 200 MG; Start 04/19/16 at 14:00 Metoprolol Tartrate (Lopressor) 2.5 mg Q6 PRN IV ELEVATED BLOOD PRESSURE Last administered on 04/20/16 19:05; Admin Dose 2.5 MG; Start 04/19/16 at 20:00 PHOEBE IQBAL MD Apr 25, 2016 08:46
[2016-04-25 08:59] LABS: CONDITION 1; PLATELET COUNT 642 10^3/UL (140-440)
[2016-04-25] MEDS: LISINOPRIL 5 MG TAB GTB SCH ×2 (09:00→20:56)
[2016-04-25] MEDS: ASPIRIN 81 MG TAB NGT SCH (09:56)
[2016-04-25] MEDS: AMIODARONE 200 MG TAB GTB SCH (10:01)
--- NOTE | 2016-04-25 11:14 | PN ---
Date/Time of Note Date/Time of Note DATE: 04/25/16 TIME: 11:11 Assessment/Plan VTE Prophylaxis VTE Prophylaxis Intervention: LMWH, SCD's Lines/Catheters IV [facility] ([facility] Saline Lock Assessment/Plan Chief Complaint/Hosp Course 1. Status post cardiopulmonary arrest secondary to ventricular fibrillation. Cardiology following. Was extubated on 04/19/2016. 2. Status post acute respiratory failure (hypoxic) secondary to cardiopulmonary arrest. S/P mechanical ventilation. Was extubated on 2016. 3. Possible underlying aspiration pneumonia. Status post antibiotic therapy. 4. S/P sepsis secondary to underlying urinary tract infection. Status post antibiotics. 5. Severe cardiomyopathy. Ejection fraction of 25%, most probably secondary to substance abuse. On beta blockers and PIOTR inhibitors. Cardiology following. 6. Elevated troponins. Troponin leak secondary to cardiac arrest. The patient is being followed by cardiology. 7. Substance abuse. 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 Will advise on cessation. 8. Acute encephalopathy. Most probably metabolic in origin. Brain CT from 04/13 negative fo any acute findings. Largely resolved. 9. Transaminitis. Etiology unclear. Will trend LFTs. Avoid hepatotoxic medications. 10. Normocytic normochromic anemia. Monitor H&H closely. Transfuse as needed. 11. Dysphagia. Largely resolved. Continue pured diet. 12. Deconditioning. Continue physical therapy. 13. Fluids, electrolytes, and nutrition. 14. Deep venous thrombosis prophylaxis. Bilateral sequential compression devices and subcutaneous Lovenox. 15. Gastrointestinal prophylaxis. Proton pump inhibitors. 16. Plan. Continue physical therapy and speech therapy. 2D echocardiogram reordered to evaluate the left ventricular ejection fraction. Patient ideally needs AICD provided the low LVEF and history of cardiac arrest. Will await final decision by cardiology. Case discussed with Dr. Schrader. Problems: Subjective 24 Hr Interval Summary Free Text/Dictation Denies any complaints. Wants to go home. Exam/Review of Systems Vital Signs Vitals Vital Signs Date Time Temp Pulse Resp B/P Pulse Ox O2 Delivery O2 Flow Rate FiO2 04/25/16 08:14 100 04/25/16 07:58 98.1 19 111/61 97 04/24/16 20:00 Room Air 04/24/16 03:43 21 04/21/16 17:59 2.0 Exam GENERAL: This is a well-built, well-nourished female lying in bed in no apparent distress. HEENT: Head normocephalic and atraumatic. Eyes: Anicteric sclerae. Conjunctivae clear. ENT: Nasal septum is midline. Oral mucosa is dry. RESPIRATORY: Bilateral diminished breath sounds. No use of accessory muscles of respiration. CARDIAC: Regular rate and rhythm. Sinus tachycardia on the monitor. ABDOMEN: Soft, nontender and nondistended. Bowel sounds positive in all 4 quadrants. GENITOURINARY: The patient has a Thompson catheter in place. EXTREMITIES: No cyanosis, no clubbing. Trace pedal edema. Peripheral pulses palpable. NEUROLOGIC: The patient is awake and alert. Oriented X 3. Results Result Diagram: 04/25/16 0640 04/25/16 0640 Results 24 hrs Laboratory Tests Test 04/25/16 06:40 Alanine Aminotransferase (ALT/SGPT) 55 Albumin 3.9 Albumin/Globulin Ratio 0.88 Alkaline Phosphatase 128 H Anion Gap 16 Aspartate Amino Transf (AST/SGOT) 43 Basophils # 0.2 H Basophils % 1.8 Blood Urea Nitrogen 14 Calcium Level 9.5 Carbon Dioxide Level 27 Chloride Level 100 Creatinine 0.59 Direct Bilirubin 0.00 Eosinophils # 0.2 Eosinophils % 1.6 Globulin 4.40 H Glucose Level 81 Hematocrit 36.0 L Hemoglobin 12.6 Indirect Bilirubin 0.5 Lymphocytes # 2.9 Lymphocytes % 22.1 Magnesium Level 2.0 Mean Corpuscular Hemoglobin 30.1 Mean Corpuscular Hemoglobin Concent 35.0 Mean Corpuscular Volume 86.0 Mean Platelet Volume 8.9 Monocytes # 1.0 H Monocytes % 7.5 Neutrophils # 8.9 H Neutrophils % 67.0 Nucleated Red Blood Cells # 0.0 Nucleated Red Blood Cells % 0.0 Phosphorus Level 4.1 Platelet Count 642 H Potassium Level 4.2 Red Blood Count 4.18 L Red Cell Distribution Width 13.8 Sodium Level 139 Total Bilirubin 0.5 Total Protein 8.3 H White Blood Count 13.3 H Medications Medications Current Medications Ondansetron HCl (Zofran Inj) 4 mg Q6H PRN IV NAUSEA AND/OR VOMITING; Start at 06:30 Acetaminophen (Tylenol Tab) 650 mg Q6H PRN PO PAIN LEVEL 1-3 OR FEVER Last administered on 04/24/16t 12:36; Admin Dose 650 MG; Start 04/13/16 at 06:30 Acetaminophen (Tylenol Supp) 650 mg Q4H PRN [place] PAIN LEVEL 1-3 OR FEVER; Start 04/13/16 at 06:30 Pantoprazole (Protonix Iv) 40 mg DAILY@06 IV Last administered on 04/25/16 05: 19; Admin Dose 40 MG; Start 04/14/16 at 06:00 Heparin Sodium (Porcine) (Heparin (5000 Units/0.5 ml)) 5,000 unit Q12 SC Last administered on 04/24/16 21:03; Admin Dose 5,000 UNIT; Start 04/13/16 at 09:00 Acetaminophen (Tylenol Supp) 650 mg Q4H PRN [place] TEMP > 37C; Start 04/13/16 at 06 :30 Acetaminophen (Tylenol Liquid) 650 mg Q4H PRN PO TEMP > 37C Last administered on 04/19/16 08:19; Admin Dose 650 MG; Start 04/13/16 at 06:30 Morphine Sulfate (morphine) 2 mg Q3H PRN IV PAIN Last administered on 04:09; Admin Dose 2 MG; Start 04/13/16 at 15:25 Aspirin (Aspirin) 81 mg DAILY NGT Last administered on 04/25/16 09:56; Admin Dose 81 MG; Start 04/14/16 at 14:00 Atorvastatin Calcium (Lipitor) 20 mg HS PO Last administered on 04/18/16 20:12 ; Admin Dose 20 MG; Start 04/14/16 at 21:00; Status Future Hold Metoclopramide HCl (Reglan) 5 mg Q6 IV Last administered on 04/25/16 05:19; Admin Dose 5 MG; Start 04/15/16 at 18:00 Carvedilol (Coreg) 6.25 mg BID PO Last administered on 04/25/16 10:01; Admin Dose 6.25 MG; Start 04/19/16 at 21:00 Lisinopril (Zestril) 2.5 mg BID GTB Last administered on 04/24/16 20:46; Admin Dose 2.5 MG; Start 04/19/16 at 21:00 Amiodarone HCl (Cordarone) 200 mg DAILY GTB Last administered on 04/25/16 10: 01; Admin Dose 200 MG; Start 04/19/16 at 14:00 Metoprolol Tartrate (Lopressor) 2.5 mg Q6 PRN IV ELEVATED BLOOD PRESSURE Last administered on 04/20/16 19:05; Admin Dose 2.5 MG; Start 04/19/16 at 20:00 TRISTON STEINBERG NP Apr 25, 2016 11:14
[2016-04-25] MEDS: HEPARIN 5,000 UNIT/0.5 ML SYG SC SCH ×2 (11:51→21:15)
[2016-04-26] VITALS (10 sets, daily range): BP systolic 95–128; BP diastolic 47–59; PULSE 89–101; RESP 15–20
[2016-04-26] MEDS: METOCLOPRAMIDE 10 MG INJ IV SCH ×4 (06:00→17:33)
[2016-04-26] MEDS: PANTOPRAZOLE 40 MG INJ IV SCH (06:00)
[2016-04-26 06:29] LABS: BASOPHIL # 0.2 10^3/ul (0.0-0.1); EOSINOPHILS # 0.2 10^3/ul (0.0-0.5); EOSINOPHILS % 1.9 % (0.0-7.0); HEMATOCRIT 35.5 % (37.0-47.0); HEMOGLOBIN 12.4 g/dl (12.0-16.0); LYMPHOCYTES % 24.4 % (15.0-51.0); MEAN CORPUSCULAR HEMOGLOBIN 30.1 pg (29.0-33.0); MEAN CORPUSCULAR HGB CONC 35.1 g/dl (32.0-37.0); MEAN CORPUSCULAR VOLUME 85.8 fl (82.0-101.0); MONOCYTE # 0.9 10^3/ul (0.3-0.9); MONOCYTES % 7.4 % (0.0-11.0); NEUTROPHILS % 64.3 % (39.0-77.0); PLATELET COUNT 609 10^3/UL (140-440); RED BLOOD COUNT 4.13 10^6/ul (4.20-5.40); RED CELL DISTRIBUTION WIDTH 13.6 % (11.5-14.5); UNCORRECTED WBC 12.5 10^3/ul (4.8-10.8); WHITE BLOOD COUNT 12.5 10^3/ul (4.8-10.8)
[2016-04-26 06:41] LABS: ALBUMIN 3.7 g/dl (3.3-4.9); CONDITION 1; POTASSIUM 3.9 mmol/L (3.5-5.1)
[2016-04-26 06:43] LABS: BILIRUBIN,INDIRECT 0.4 mg/dl (0-1.1); BILIRUBIN,TOTAL 0.4 mg/dl (0.2-1.3); CREATININE 0.6 mg/dl (0.44-1.00)
[2016-04-26 06:44] LABS: ALBUMIN/GLOBULIN RATIO 0.86; CALCIUM 9.5 mg/dl (8.4-10.2)
[2016-04-26 07:35] LABS: MAGNESIUM 1.9 mg/dl (1.7-2.5); PHOSPHORUS 3.4 mg/dl (2.5-4.9)
[2016-04-26] MEDS: LISINOPRIL 5 MG TAB GTB SCH ×2 (09:00→21:05)
[2016-04-26] MEDS ORDERED: CARV6.2579 PO (09:28)
[2016-04-26] MEDS ORDERED: ASPI81TA3 NGT (09:28)
[2016-04-26] MEDS ORDERED: ATOR20TA65 PO (09:28)
[2016-04-26] MEDS ORDERED: LISI-313 PO (09:28)
[2016-04-26] MEDS ORDERED: AMIO200T2 GTB (09:28)
[2016-04-26] MEDS: HEPARIN 5,000 UNIT/0.5 ML SYG SC SCH ×2 (09:57→21:18)
--- NOTE | 2016-04-26 17:24 | PN ---
Date/Time of Note Date/Time of Note DATE: 04/26/16 TIME: 17:24 Assessment/Plan VTE Prophylaxis VTE Prophylaxis Intervention: SCD's Lines/Catheters IV Catheter Type (from Nrs): Saline Lock Assessment/Plan Assessment/Plan Cardiac arrest Ventricular fibrillation Severe cardiomyopathy with ejection fraction 25% SIRS Sinus tachycardia Methamphetamine use Elevated troponins -s/p diuretics continue cardiac meds On amiodarone refused ICD Subjective 24 Hr Interval Summary Free Text/Dictation The patient with no cahgne Exam/Review of Systems Vital Signs Vitals Vital Signs Date Time Temp Pulse Resp B/P Pulse Ox O2 Delivery O2 Flow Rate FiO2 04/26/16 17:13 89 04/26/16 16:09 98.0 20 101/52 99 04/26/16 09:35 21 04/24/16 20:00 Room Air Intake and Output 04/25/16 04/25/16 04/26/16 15:00 23:00 07:00 Intake Total 100 ml 500 ml 300 ml Output Total 2 ml Balance 100 ml 498 ml 300 ml Results Result Diagram: 04/26/16 0534 04/26/16 0534 Results 24 hrs Laboratory Tests Test 04/26/16 05:34 Alanine Aminotransferase (ALT/SGPT) 48 Albumin 3.7 Albumin/Globulin Ratio 0.86 Alkaline Phosphatase 129 H Anion Gap 15 Aspartate Amino Transf (AST/SGOT) 31 Basophils # 0.2 H Basophils % 2.0 Blood Urea Nitrogen 12 Calcium Level 9.5 Carbon Dioxide Level 27 Chloride Level 99 Creatinine 0.60 Direct Bilirubin 0.00 Eosinophils # 0.2 Eosinophils % 1.9 Globulin 4.30 H Glucose Level 84 Hematocrit 35.5 L Hemoglobin 12.4 Indirect Bilirubin 0.4 Lymphocytes # 3.0 H Lymphocytes % 24.4 Magnesium Level 1.9 Mean Corpuscular Hemoglobin 30.1 Mean Corpuscular Hemoglobin Concent 35.1 Mean Corpuscular Volume 85.8 Mean Platelet Volume 9.0 Monocytes # 0.9 Monocytes % 7.4 Neutrophils # 8.0 H Neutrophils % 64.3 Nucleated Red Blood Cells # 0.0 Nucleated Red Blood Cells % 0.0 Phosphorus Level 3.4 Platelet Count 609 H Potassium Level 3.9 Red Blood Count 4.13 L Red Cell Distribution Width 13.6 Sodium Level 137 Total Bilirubin 0.4 Total Protein 8.0 White Blood Count 12.5 H Medications Medications Current Medications Ondansetron HCl (Zofran Inj) 4 mg Q6H PRN IV NAUSEA AND/OR VOMITING; Start at 06:30 Acetaminophen (Tylenol Tab) 650 mg Q6H PRN PO PAIN LEVEL 1-3 OR FEVER Last administered on 04/24/16 12:36; Admin Dose 650 MG; Start 04/13/16 at 06:30 Acetaminophen (Tylenol Supp) 650 mg Q4H PRN [place] PAIN LEVEL 1-3 OR FEVER; Start 04/13/16 at 06:30 Pantoprazole (Protonix Iv) 40 mg DAILY@06 IV Last administered on 04/26/16 06: 00; Admin Dose 40 MG; Start 04/14/16 at 06:00 Heparin Sodium (Porcine) (Heparin (5000 Units/0.5 ml)) 5,000 unit Q12 SC Last administered on 04/26/16 09:57; Admin Dose 5,000 UNIT; Start 04/13/16 at 09:00 Acetaminophen (Tylenol Supp) 650 mg Q4H PRN [place] TEMP > 37C; Start 04/13/16 at 06 :30 Acetaminophen (Tylenol Liquid) 650 mg Q4H PRN PO TEMP > 37C Last administered on 04/19/16 08:19; Admin Dose 650 MG; Start 04/13/16 at 06:30 Morphine Sulfate (morphine) 2 mg Q3H PRN IV PAIN Last administered on 04:09; Admin Dose 2 MG; Start 04/13/16 at 15:25 Atorvastatin Calcium (Lipitor) 20 mg HS PO Last administered on 04/18/16 20:12 ; Admin Dose 20 MG; Start 04/14/16 at 21:00; Status Future Hold Metoclopramide HCl (Reglan) 5 mg Q6 IV Last administered on 04/26/16 12:51; Admin Dose 5 MG; Start 04/15/16 at 18:00 Carvedilol (Coreg) 6.25 mg BID PO Last administered on 04/25/16 20:56; Admin Dose 6.25 MG; Start 04/19/16 at 21:00 Lisinopril (Zestril) 2.5 mg BID GTB Last administered on 04/25/16 20:56; Admin Dose 2.5 MG; Start 04/19/16 at 21:00 Metoprolol Tartrate (Lopressor) 2.5 mg Q6 PRN IV ELEVATED BLOOD PRESSURE Last administered on 04/20/16t 19:05; Admin Dose 2.5 MG; Start 04/19/16 at 20:00 Amiodarone HCl (Cordarone) 200 mg DAILY PO ; Start 04/27/16 at 09:00 Aspirin (Aspirin) 81 mg DAILY PO ; Start 04/27/16 at 09:00 KAYLIN BOLANOS MD Apr 26, 2016 17:24
[2016-04-27] VITALS (12 sets, daily range): BP systolic 100–126; BP diastolic 53–78; PULSE 80–124; RESP 18–20
[2016-04-27] MEDS: METOCLOPRAMIDE 10 MG INJ IV SCH ×4 (00:06→18:00)
[2016-04-27] MEDS: PANTOPRAZOLE 40 MG INJ IV SCH (05:45)
[2016-04-27] MEDS ORDERED: AMIODARONE 200 MG TAB PO SCH (09:00)
[2016-04-27] MEDS ORDERED: ASPIRIN 81 MG TAB PO SCH (09:00)
[2016-04-27] MEDS: LISINOPRIL 5 MG TAB GTB SCH (10:00)
[2016-04-27] MEDS: HEPARIN 5,000 UNIT/0.5 ML SYG SC SCH (10:04)
--- NOTE | 2016-04-27 10:26 | PN ---
Date/Time of Note Date/Time of Note LATE ENTRY DATE: 04/26/16 Assessment/Plan VTE Prophylaxis VTE Prophylaxis Intervention: SCD's Lines/Catheters IV C[facility]from [facility] Saline Lock Assessment/Plan Chief Complaint/Hosp Course 1. Status post cardiopulmonary arrest secondary to ventricular fibrillation. Continue optimization with cardiovascular medications. Of note patient was extubated on 04/19/2016. Continue with cardiology recommendations. Patient refusing AICD at this time.. 2. Status post acute respiratory failure (hypoxic) secondary to cardiopulmonary arrest. Extubated at this time. We'll monitor. Improved 3. Suspect aspiration pneumonia. Off and about exposure to monitor. 4. S/P sepsis secondary to underlying urinary tract infection. Off antibiotics at this time we'll monitor. Improved 5. Severe cardiomyopathy. Ejection fraction of 25%, most probably secondary to substance abuse. Continue beta blockers and PIOTR inhibitors. Cardiology following. Patient refusing at this time. 6. Elevated troponins. Troponin leak secondary to cardiac arrest. Continue with cardiology recommendations. 7. Substance abuse. Substance abuse cessation advised. 8. Acute encephalopathy. Most probably metabolic in origin. Brain CT from 04/13 negative fo any acute findings. Improved 9. Transaminitis. Etiology unclear. Avoid hepatotoxic medications 10. Normocytic normochromic anemia. Stable at present we'll transfuse prn 11. Dysphagia. Improved. Continue pured diet. 12. Deconditioning. Continue physical therapy. Disposition and plan: Continue cardiac vascular medications. Continue telemetry monitoring. Discharge when medically stable and cleared by consultants Discussed plan of care with Dr. Bridges Problems: Subjective 24 Hr Interval Summary Free Text/Dictation no s/s of distress Exam/Review of Systems Vital Signs Vitals Vital Signs Date Time Temp Pulse Resp B/P Pulse Ox O2 Delivery O2 Flow Rate FiO2 04/27/16 08:36 97 04/27/16 07:46 98.5 20 126/60 98 04/26/16 09:35 21 04/24/16 20:00 Room Air Intake and Output 04/26/16 04/26/16 04/27/16 15:00 23:00 07:00 Intake Total 1000 ml 320 ml Balance 1000 ml 320 ml Exam General: No acute signs or symptoms of distress Eyes: pupils equal round, Anicteric sclera Neck: Supple nontender, no JVD Cardiac: S1, S2 auscultated, regular rhythm and rate Pulmonary: No coarse rhonchi or breathing auscultated GI: Abdomen soft nontender nondistended, bowel sounds active Extremities: No edema bilateral lower extremities Skin: Clean dry and intact Neurologic: Alert to person place and time and situation Results Result Diagram: 04/26/1653304/26/16533 Medications Medications Current Medications Ondansetron HCl (Zofran Inj) 4 mg Q6H PRN IV NAUSEA AND/OR VOMITING; Start at 06:30 Acetaminophen (Tylenol Tab) 650 mg Q6H PRN PO PAIN LEVEL 1-3 OR FEVER Last administered on 04/24/16 12:36; Admin Dose 650 MG; Start 04/13/16 at 06:30 Acetaminophen (Tylenol Supp) 650 mg Q4H PRN [place] PAIN LEVEL 1-3 OR FEVER; Start 04/13/16 at 06:30 Pantoprazole (Protonix Iv) 40 mg DAILY@06 IV Last administered on 04/27/16 05: 45; Admin Dose 40 MG; Start 04/14/16 at 06:00 Heparin Sodium (Porcine) (Heparin (5000 Units/0.5 ml)) 5,000 unit Q12 SC Last administered on 04/27/16 10:04; Admin Dose 5,000 UNIT; Start 04/13/16 at 09:00 Acetaminophen (Tylenol Supp) 650 mg Q4H PRN AL TEMP > 37C; Start 04/13/16 at 06 :30 Acetaminophen (Tylenol Liquid) 650 mg Q4H PRN PO TEMP > 37C Last administered on 04/19/16 08:19; Admin Dose 650 MG; Start 04/13/16 at 06:30 Morphine Sulfate (morphine) 2 mg Q3H PRN IV PAIN Last administered on 04:09; Admin Dose 2 MG; Start 04/13/16 at 15:25 Atorvastatin Calcium (Lipitor) 20 mg HS PO Last administered on 04/18/16 20:12 ; Admin Dose 20 MG; Start 04/14/16 at 21:00; Status Future Hold Metoclopramide HCl (Reglan) 5 mg Q6 IV Last administered on 04/27/16 05:45; Admin Dose 5 MG; Start 04/15/16 at 18:00 Carvedilol (Coreg) 6.25 mg BID PO Last administered on 04/27/16 09:59; Admin Dose 6.25 MG; Start 04/19/16 at 21:00 Lisinopril (Zestril) 2.5 mg BID GTB Last administered on 04/27/16 10:00; Admin Dose 2.5 MG; Start 04/19/16 at 21:00 Metoprolol Tartrate (Lopressor) 2.5 mg Q6 PRN IV ELEVATED BLOOD PRESSURE Last administered on 04/20/16 19:05; Admin Dose 2.5 MG; Start 04/19/16 at 20:00 Amiodarone HCl (Cordarone) 200 mg DAILY PO Last administered on 04/27/16 09:59 ; Admin Dose 200 MG; Start 04/27/16 at 09:00 Aspirin (Aspirin) 81 mg DAILY PO Last administered on 04/27/16 10:00; Admin Dose 81 MG; Start 04/27/16 at 09:00 MYRTLE BYRD Apr 27, 2016 10:26
--- NOTE | 2016-04-27 16:12 | CONS ---
Date/Time of Note Date/Time of Note DATE: 04/27/16 TIME: 16:09 Assessment/Plan Assessment/Plan Additional Assessment/Plan Cardiac arrest Ventricular fibrillation Severe cardiomyopathy with ejection fraction 25% SIRS Sinus tachycardia Methamphetamine use -Blood pressure trend has remained stable and patient ambulating without any symptoms. Discussed with the patient again regarding ICD placement including benefits and risks and she continues to refuse. I did careers counsellor extensively on the importance of cessation of all illicit drugs including alcohol and tobacco. Also the importance of medication compliance and outpatient follow-up. DC planning. Consultation Date/Type/Reason Admit Date/Time Apr 13, 2016 at 06:25 Type of Consultation: cv 24 HR Interval Summary Free Text/Dictation Patient denies chest pain, shortness of breath or palpitations. Ambulating in the hallways and feeling well Exam/Review of Systems Vital Signs Vitals Vital Signs Date Time Temp Pulse Resp B/P Pulse Ox O2 Delivery O2 Flow Rate FiO2 04/27/16 16:07 98.4 18 18 118/78 100 04/26/16 09:35 21 04/24/16 20:00 Room Air Intake and Output 04/26/16 04/26/16 04/27/16 15:00 23:00 07:00 Intake Total 1000 ml 320 ml Balance 1000 ml 320 ml Exam No apparent distress Constitutional: alert, oriented Head: normocephalic Neck: supple Respiratory: other (course breath sounds bilaterally, no wheezing) Cardiovascular: other (S1-S2 heard), regular rate and rhythm Gastrointestinal: bowel sounds, non-tender, soft Extremities: other (no edema) Results Result Diagram: 04/26/16 0534 04/26/16 0534 Medications Medications Current Medications Ondansetron HCl (Zofran Inj) 4 mg Q6H PRN IV NAUSEA AND/OR VOMITING; Start at 06:30 Acetaminophen (Tylenol Tab) 650 mg Q6H PRN PO PAIN LEVEL 1-3 OR FEVER Last administered on 04/24/16 12:36; Admin Dose 650 MG; Start 04/13/16 at 06:30 Acetaminophen (Tylenol Supp) 650 mg Q4H PRN [place] PAIN LEVEL 1-3 OR FEVER; Start 04/13/16 at 06:30 Pantoprazole (Protonix Iv) 40 mg DAILY@06 IV Last administered on 04/27/16 05: 45; Admin Dose 40 MG; Start 04/14/16 at 06:00 Heparin Sodium (Porcine) (Heparin (5000 Units/0.5 ml)) 5,000 unit Q12 SC Last administered on 04/27/16 10:04; Admin Dose 5,000 UNIT; Start 04/13/16 at 09:00 Acetaminophen (Tylenol Supp) 650 mg Q4H PRN [place] TEMP > 37C; Start 04/13/16 at 06 :30 Acetaminophen (Tylenol Liquid) 650 mg Q4H PRN PO TEMP > 37C Last administered on 04/19/16 08:19; Admin Dose 650 MG; Start 04/13/16 at 06:30 Morphine Sulfate (morphine) 2 mg Q3H PRN IV PAIN Last administered on 04:09; Admin Dose 2 MG; Start 04/13/16 at 15:25 Atorvastatin Calcium (Lipitor) 20 mg HS PO Last administered on 04/18/16 20:12 ; Admin Dose 20 MG; Start 04/14/16 at 21:00; Status Future Hold Metoclopramide HCl (Reglan) 5 mg Q6 IV Last administered on 04/27/16 12:53; Admin Dose 5 MG; Start 04/15/16 at 18:00 Carvedilol (Coreg) 6.25 mg BID PO Last administered on 04/27/16 09:59; Admin Dose 6.25 MG; Start 04/19/16 at 21:00 Lisinopril (Zestril) 2.5 mg BID GTB Last administered on 04/27/16 10:00; Admin Dose 2.5 MG; Start 04/19/16 at 21:00 Metoprolol Tartrate (Lopressor) 2.5 mg Q6 PRN IV ELEVATED BLOOD PRESSURE Last administered on 04/20/16 19:05; Admin Dose 2.5 MG; Start 04/19/16 at 20:00 Amiodarone HCl (Cordarone) 200 mg DAILY PO Last administered on 04/27/16 09:59 ; Admin Dose 200 MG; Start 04/27/16 at 09:00 Aspirin (Aspirin) 81 mg DAILY PO Last administered on 04/27/16 10:00; Admin Dose 81 MG; Start 04/27/16 at 09:00 Giorgio Knight DO Apr 27, 2016 16:12
--- NOTE | 2016-04-27 16:21 | PDOCDIS ---
Discharge Instructions DIAGNOSIS Discharge Diagnosis: 1. Cardiomegaly pulmonary arrest and ventricular fibrillation 2. Respirator CONDITION Patient Condition: Stable HOME CARE INSTRUCTIONS: Diet Instructions: Low Fat /Cholesterol FOLLOW UP/APPOINTMENTS Appointments 1. Follow up with your primary care provider in one week 2. Follow up with Dr. Giorgio Knight in 2 weeks OTHER ORDERS: Other Orders: 1. Stop amphetamine abuse 2. Take your medications as prescribed MYRTLE BYRD Apr 27, 2016 16:21
--- NOTE | 2016-04-29 18:55 | RADRPT ---
Echocardiogram Report Patient Name: ANGEL LEBRON Gender: Female Date: 1995 Study Date: 25-Apr-2016 Blueprint Tracer: [facility] Location: 525 Ref. Physician: KAYLIN BOLANOS Quality: Adequate Procedures: Transthoracic echocardiogram with complete 2D, M-Mode, and doppler examination. Indications: REPEAT ECHO TO SEE IF EF IMPROVED SINCE ADMISSION. 2D/M Mode Doppler Measurement Value Normal Ranges Measurement Value Normal Ranges LVIDd 2D 3.5 3.5 - 5.6 cm AV Peak Damien 1.3 m/sec LVIDs 2D 2.5 2.1 - 4.1 cm AV Peak PG 6.0 mmHg FS 2D 27.7 % LVOT Peak Damien 1.0 m/sec LVPWd 2D 1.0 0.6 - 1.1 cm LVOT Peak PG 4.0 mmHg IVSd 2D 1.0 0.6 - 1.1 cm MV E Peak Damien 0.7 m/sec IVS/LVPW 2D 1.0 MV A Peak Damien 0.6 m/sec AoR Diam 2D 2.3 2.0 - 3.7 cm MV E/A 1.1 LA/Ao 2D 1 0 - 1 MV Decel Time 151 msec EDV 2D 42.9 cm3 MV E/A 1.1 ESV 2D 16.2 cm3 LA Dimen 2D 2.4 2.3 - 4.0 cm Findings Left Ventricle: Lower limits of normal systolic function. Normal left ventricular cavity size. Normal left ventricular wall thickness. Ejection fraction is visually estimated at 50 %. Right Ventricle: Normal right ventricular size. Normal right ventricular systolic function. Left Atrium: The left atrium is normal in size. Right Atrium: The right atrium is normal in size. Mitral Valve: Mild mitral leaflet calcification. Trace mitral regurgitation. Aortic Valve: Normal appearance of the aortic valve. No significant aortic stenosis or insufficiency. Tricuspid Valve: Normal appearance and function of the tricuspid valve with trace physiologic regurgitation. Pulmonic Valve: Normal pulmonic valve appearance. There is trace pulmonic regurgitation. Pericardium: Normal pericardium with no significant pericardial effusion. Aorta: Normal aortic root. IVC: Normal size and normal respiratory collapse consistent with normal right atrial pressure. Conclusions 1.Lower limits of normal systolic function. Normal left ventricular cavity size. Normal left ventricular wall thickness. Ejection fraction is visually estimated at 50 %. 2.Normal right ventricular size. Normal right ventricular systolic function. 3.The left atrium is normal in size. 4.The right atrium is normal in size. 5.No significant valvular stenosis or regurgitation seen. 6.Normal pericardium with no significant pericardial effusion. Electronically Signed By: Giorgio Knight 29-Apr-2016 18:53:42 -0800 Patient Name: ANGEL LEBRON Study Date: 25-Apr-[id number]
--- NOTE | 2016-05-07 16:26 | DS ---
DATE OF ADMISSION: 04/13/2016 DATE OF DISCHARGE: 04/27/2016 CONSULTANTS: 1. GIORGIO KNIGHT MD 2. KAYLIN BOLANOS MD 3. SHELLEY AVILA MD. 4. DELMER WRIGHT MD DISCHARGE DIAGNOSES: 1. Cardiopulmonary arrest secondary to ventricular fibrillation. 2. Acute respiratory failure secondary to #2. 3. Aspiration pneumonia. 4. Sepsis secondary to underlying urinary tract infection. 5. Cardiomyopathy with ejection fraction of 25%. 6. Elevated troponins secondary to cardiac arrest. 7. History of drug abuse with amphetamines and alcohol. 8. Transaminitis likely secondary to alcohol abuse, drug abuse. HOSPITAL COURSE: This is a 20-year-old female with unknown past medical history who was brought to [facility] [place] a local bar secondary to cardiac arrest. At this time, the patien t was found down and 911 was called. She was found to have no pulse. She was found to have ventric ular fibrillation. She was reported to be shocked on the field where her pulse was restored. She d id come to [facility] and intubated for airway support and brought into the ICU. She did have a heart rate documented as high as 165. She also had tox screen positive for amphetami balwinder. She also had some lactic acidosis as high as 11.4 and transaminitis. Of note, the CT scan of her head was unremarkable for any intracranial abnormality. Chest x-ray did show diffuse patchy rig ht upper lobe infiltrate suggestive for aspiration pneumonia from a recent cardiac arrest. The vahe ent did have multidisciplinary care. She was seen by wreath and garland maker and doors prefitter for her airway support. She was started on antibiotics for aspiration pneumonia. The patient did respond well to medical treatment. She did have echocardiogram with ejection fraction at roughly 25%. As for her r espiratory failure secondary to her cardiopulmonary arrest, we were able to finally wean the patient off the vent. She was optimized with beta hsarlene and PIOTR inhibitors for her cardiomyopathy. She also had known elevated troponins and this is likely secondary to troponin leak from her cardiac arr est. We continue with cardiology recommendations. As for substance abuse, she was educated about t he patient. She initially had some encephalopathy with reported dysphagia. This was likely seconda ry to metabolic origin. This did improve during her course of stay and she was able to tolerate reg ular diet. She was otherwise optimized medically with physical therapy for deconditioning. She was seen by school social worker. Patient was offered the option for possible AICD per Cardiology, but due to patient's drug abuse, she was likely not a candidate for it. After discussion with the patient, tremaine joy also refused any further invasive intervention for her cardiomyopathy. During her course of stay, she did improve. Patient was cleared by wreath and garland maker and doors prefitter on day of discharge. The p nupur of care was discussed with the patient and patient did verbalize her understanding. On the day of discharge, the patient was in stable condition. Discharge physical exam and vital signs are stable. CONDITION: Stable. DISCHARGE PLAN: 1. Diet: Low fat, low cholesterol. 2. Patient to follow up with her primary care provider within a week. 3. The patient to follow up with Dr. Giorgio Knight in 2 weeks. 4. Patient educated to stop amphetamine abuse. 5. Patient educated to take her medications as prescribed. DISCHARGE MEDICATIONS: 1. Amiodarone 200 mg p.o. every day. 2. Aspirin 81 mg p.o. daily. 3. Atorvastatin 10 mg p.o. at bedtime. 4. Carvedilol 6.25 mg p.o. b.i.d. 5. Lisinopril 2.5 mg p.o. b.i.d. DISCHARGE PROCESS TIME: 40 minutes. Discussed plan of care with Dr. Baldwin. Dictated By: MYRTLE BYRD DROP WIRER for GAGE ROY/HARINDER Conf#: [id number] DID#: [id number]
== END 2016-04-27 21:00 | disposition home or self-care (01) | DRG 917 ==
LOC: E/R 02:23 → ICU 06:25 → TEL 04-21 14:25 → ICU 04-21 14:26 → TEL 04-21 14:51
PROVIDERS: ADMIT Internal Medicine; ATTEND Internal Medicine
PROC: 5A1955Z Respiratory Ventilation, Greater than 96 Consecutive Hours (ICD-10-PCS; principal; 2016-04-13)
PROC: 0BH17EZ Insertion of Endotracheal Airway into Trachea, Via Natural or Artificial Opening (ICD-10-PCS; 2016-04-13)
DX: T43.621A Poisoning by amphetamines, accidental (unintentional), initial encounter (principal); A41.9 Sepsis, unspecified organism; J96.01 Acute respiratory failure with hypoxia; I49.01 Ventricular fibrillation; J69.0 Pneumonitis due to inhalation of food and vomit; G93.41 Metabolic encephalopathy; K85.80 Other acute pancreatitis without necrosis or infection; I46.8 Cardiac arrest due to other underlying condition; I42.9 Cardiomyopathy, unspecified; E87.2 Acidosis; N39.0 Urinary tract infection, site not specified; E87.6 Hypokalemia; F15.188 Other stimulant abuse with other stimulant-induced disorder; Y92.69 Other specified industrial and construction area as the place of occurrence of the external cause; D64.9 Anemia, unspecified; R74.0 Nonspecific elevation of levels of transaminase and lactic acid dehydrogenase [LDH]; R73.9 Hyperglycemia, unspecified; R53.81 Other malaise; R13.10 Dysphagia, unspecified; Z93.1 Gastrostomy status; Z97.8 Presence of other specified devices; Z51.5 Encounter for palliative care
CPT/HCPCS: 31500; 36415; 36600; 70450; 71010; 80048; 80053; 80061; 80306; 80307; 81001; 81003; 82150; 82550; 82553; 82803; 82962; 83036; 83605; 83690; 83735; 84100; 84439; 84443; 84484; 84703; 85025; 85610; 85730; 87040; 87081; 87086; 90686; 92526; 92610; 93005; 93306; 94002; 94003; 94770; 96374; 96375; 96376; 97116; 97162; 97530; J1940; C1751; C9113; J0282; J0330; J0692; J1815; J2270; J2543; J2765; J3010; J3370; J3475; J3480; J7030; J7040; J7042; J7070